=== PATIENT | female | born 1955 ===

== ENCOUNTER 2020-11-24 14:20 | Outpatient (REF) | payer MEDICARE, OTHER, SELFPAY ==
--- NOTE | ~2020-11-24 | MM_ITS ---
EXAMINATION: BONE DENSITOMETRY CLINICAL INDICATION: Age-related osteoporosis without current pathological fracture. COMPARISON: Previous BD dated 12/09/2016 and baseline BD dated 07/10/2009. TECHNIQUE: Using a [employer] DXA System (software version: 13.1) manufactured by [employer], dual-energy x-ray absorptiometry was performed of the lumbar spine and left hip. The images are of good technical quality. Summary results are attached. FINDINGS: AP SPINE L1-L3 (excluding L4): The data of L1-L4 has been changed to exclude the L4 vertebral body, because degenerative changes at this level may cause overestimation of lumbar spine density. Current: BMD 0.854 g/cm2, Z-score -0.6, T-score -2.6, osteoporosis, 0.1% decrease from previous, 14.7% decrease from baseline (<5% change is not significant). Prior: BMD 0.855 g/cm2. Baseline: BMD 1.001 g/cm2. LEFT FEMUR, NECK: Current: BMD 0.835 g/cm2, Z-score 0.3, T-score -1.5, osteopenia. Prior: BMD 0.843 g/cm2. Baseline: BMD 0.922 g/cm2. LEFT FEMUR, TOTAL: Current: BMD 0.879 g/cm2, Z-score 0.5, T-score -1.0, normal, 6.3% decrease from previous, 14.6% decrease from baseline (<5% change is not significant). Prior: BMD 0.938 g/cm2. Baseline: BMD 1.029 g/cm2. IDENTIFIED RISK FACTORS: Osteoporosis, menopause. HISTORY OF FRACTURE: None listed. MEDICATIONS: Calcium or multivitamin. MM/XR DEXA axial skeleton IMPRESSION: 1. DIAGNOSIS: Osteoporosis based on the lowest T-score value of -2.6 in the lumbar spine applying World Health Organization criteria. 2. 10-YEAR FRACTURE RISK PREDICTION, FRAX: Major osteoporotic fracture (clinical spine, forearm, hip or shoulder) 4.5%. Hip fracture 0.5%. 3. Treatment Recommendations: NOF guidelines recommend consideration for treatment in postmenopausal women and men age 50 and older presenting with the following: -A hip or vertebral (clinical or morphometric) fracture. -T-score less than or equal to -2.5 at the femoral neck or spine after appropriate evaluation to exclude secondary causes. -Low bone mass at the hip or spine and a 10-year fracture probability by FRAX of greater than or equal to 3% for hip fracture or greater than or equal to 20% for major osteoporotic fracture based on the [place] adapted WHO algorithm. 4. Other Recommendations: All treatment decisions require clinical judgment and consideration of individual patient factors, including patient preferences, comorbidities, previous drug use, risk factors not captured in the FRAX model (e.g. frailty, falls, vitamin D deficiency, increased bone turnover, interval significant decline in bone density) and possible under or overestimation of fracture risk by FRAX. Additional medical evaluation for secondary cause of low bone mineral density may be appropriate. FUTURE SCAN RECOMMENDATION: People with diagnosed cases of osteoporosis or at high risk for fracture should have regular bone mineral density tests. For patients eligible for Medicare, routine testing is allowed once every 2 years. The testing frequency can be increased to one year for patients who have rapidly progressing disease, those who are receiving or discontinuing medical therapy to restore bone mass, or have additional risk factors.
== END 2020-11-24 14:21 | disposition home or self-care (01) ==
LOC: HO.MAMMO 14:20
PROVIDERS: Visit Provider Internal Medicine
DX: M81.0 Age-related osteoporosis without current pathological fracture (principal); Z78.0 Asymptomatic menopausal state
CPT/HCPCS: 77080

== ENCOUNTER → 2021-02-11 11:50 | Outpatient (BNVA) | payer MEDICARE, OTHER, SELFPAY | PROVIDERS: PCP Internal Medicine; Visit Provider Internal Medicine | CPT/HCPCS: Q3014 ==

== ENCOUNTER 2021-02-12 10:07 | Outpatient (REF) | payer MEDICARE, OTHER, SELFPAY ==
[2021-02-12 11:33] LABS: Alanine Aminotransferase 17 U/L (0-31); Alkaline Phosphatase 109 U/L (39-117); Anion Gap 10 (12-20); Aspartate Amino Transferase 22 U/L (5-31); Bilirubin Total 0.5 mg/dL (0.0-1.0); Blood Urea Nitrogen 13 mg/dL (9-16); Calcium 9.2 mg/dL (8.4-10.2); Carbon Dioxide 27 mmol/L (22-29); Chloride 107 mmol/L (96-108); Estimated Glomerular Filt Rate > 60; Glucose Random 98 mg/dL (60-115); Phosphorus 3.9 mg/dL (2.7-4.5); Potassium 4.2 mmol/L (3.3-5.1); Sodium 140 mmol/L (135-145); Total Protein 6.7 g/dL (6.5-8.0)
[2021-02-12 11:59] LABS: Free T4 (Free Thyroxine) 0.79 ng/dL (0.71-1.85); Thyroid Stimulating Hormone 0.86 uIU/mL (0.32-4.0); Vitamin D 25-OH Total 34.6 ng/mL (>30)
[2021-02-15 22:06] LABS: Prot Elec - Albumin 3.9 g/dL (3.8-4.8); Prot Elec - Alpha1 0.2 g/dL (0.2-0.3); Prot Elec - Alpha2 0.6 g/dL (0.5-0.9); Prot Elec - Beta 1 0.4 g/dL (0.4-0.6); Prot Elec - Beta 2 0.3 g/dL (0.2-0.5); Prot Elec - Gamma 1.1 g/dL (0.8-1.7); Prot Elec - Total Protein 6.6 g/dL (6.1-8.1)
[2021-02-16 10:27] LABS: PTHI 50 pg/mL (14-64)
== END 2021-02-12 10:08 | disposition home or self-care (01) ==
LOC: HO.LAB 10:07
PROVIDERS: PCP Internal Medicine; Visit Provider Internal Medicine
DX: M81.0 Age-related osteoporosis without current pathological fracture (principal); E55.9 Vitamin D deficiency, unspecified
CPT/HCPCS: 36415; 80053; 82306; 82330; 82523; 83970; 84100; 84155; 84165; 84439; 84443

== ENCOUNTER 2021-02-15 10:11 | Outpatient (REF) | payer MEDICARE, OTHER, SELFPAY ==
[2021-02-15 11:01] LABS: Creatinine, mg/dL 55.75
[2021-02-15 12:57] LABS: Creatinine, 24Hr Urine 0.7 G/Day (1.0-2.0); Total Volume 24 Hour Urine 1325 mL
[2021-02-16 18:36] LABS: Calcium, 24 Hr Urine 272 mg/24 h; Calcium/Creatinine Ratio 366 mg/g creat (30-275); Creatinine 24Hr Urine 0.74 g/24 h (0.50-2.15)
== END 2021-02-15 10:12 | disposition home or self-care (01) ==
LOC: HO.LNP 10:11
PROVIDERS: Visit Provider Internal Medicine
DX: M81.0 Age-related osteoporosis without current pathological fracture (principal)
CPT/HCPCS: 82340; 82570

== ENCOUNTER 2021-02-17 09:21 | Outpatient (REF) | payer MEDICARE, OTHER, SELFPAY ==
--- NOTE | ~2021-02-17 | US_ITS ---
EXAMINATION: US THYROID CLINICAL INFORMATION: Vitamin D deficiency. COMPARISON: Ultrasound thyroid soft tissues neck 07/22/2011. TECHNIQUE: Linear transducer gonzalez-scale and color Doppler examination with attention to the region of the thyroid. FINDINGS: SIZE: Measurements of the thyroid lobes and nodules are given in sagittal, anteroposterior and transverse dimensions respectively. Right Thyroid Lobe: 5.2 x 1.6 x 1.2 cm, volume 5.2 mL. Previously 1.9 x 1.3 x 1.0 cm, volume 3.3 mL. Parenchyma: The gland echotexture is homogeneous. Thyroid vascularity is normal. Left Thyroid Lobe: 4.7 x 1.5 x 1.3 cm, volume 4.8 mL. Previously 3.8 x 1.2 x 1.2 cm, volume 2.9 mL. Parenchyma: The gland echotexture is homogeneous. Thyroid vascularity is normal. Isthmus: 0.3 cm in maximum AP dimension. Previously 0.3 cm. Estimated total number of nodules greater than or equal to 1 cm: 0. [employer] nodules are described as follows: 1. Location: Right mid. Size: 0.5 x 0.3 x 0.3 cm, volume 0.02 mL. Nodule characteristics: Composition: Solid (2). Echogenicity: Isoechoic (1). Shape: Not taller than wide (0). Margins: Ill-defined (0). Echogenic Foci: Punctate echogenic foci (3). ACR TI-RADS total points: 6 ACR TI-RADS category: 4 Significant change in size (>/= 20% in 2 dimensions and minimal increase of 2 mm or 50% or greater increase in volume): No Change in features: No Change in ACR TI-RADS risk category: Not applicable 2. Location: Left upper. Size: 0.5 x 0.3 x 0.3 cm, volume 0.02 mL. Nodule characteristics: Composition: Solid (2). Echogenicity: Isoechoic (1). Shape: Not taller than wide (0). Margins: Ill-defined (0). Echogenic Foci: None (0). ACR TI-RADS total points: 3 ACR TI-RADS category: 3 Significant change in size (>/= 20% in 2 dimensions and minimal increase of 2 mm or 50% or greater increase in volume): None Change in features: None Change in ACR TI-RADS risk category: Not applicable 3. Location: Left upper. Size: 0.4 x 0.5 x 0.5 cm, volume 0.05 mL. Nodule characteristics: Composition: Solid (2). Echogenicity: Hypoechoic (2). Shape: Not taller than wide (0). Margins: Ill-defined (0). Echogenic Foci: Punctate echogenic foci (3). ACR TI-RADS total points: 7 ACR TI-RADS category: 5 Significant change in size (>/= 20% in 2 dimensions and minimal increase of 2 mm or 50% or greater increase in volume): None Change in features: None Change in ACR TI-RADS risk category: Not applicable 4. Location: Left mid. Size: 0.5 x 0.4 x 0.4 cm, volume 0.04 mL. Nodule characteristics: Composition: Solid (2). Echogenicity: Isoechoic (1). Shape: Not taller than wide (0). Margins: Ill-defined (0). Echogenic Foci: None (0). ACR TI-RADS total points: 3 ACR TI-RADS category: 3 Significant change in size (>/= 20% in 2 dimensions and minimal increase of 2 mm or 50% or greater increase in volume): None Change in features: None Change in ACR TI-RADS risk category: Not applicable NODES: No lymphadenopathy is seen in the tissue surrounding the thyroid gland. US/US thyroid IMPRESSION: Small subcentimeter nodules in both lobes. The left upper pole nodule is suspicious. Recommend routine annual follow-up. ACR TI-RADS RECOMMENDATION REFERENCE: Ultrasound-guided fine-needle aspiration, followup ultrasound, no further follow up. * TR1 (0 point) and TR 2 (2 points): No FNA or follow up * TR3 (3 points): FNA if more than or equal to 2.5 cm in maximum dimension, followup ultrasound in 1, 3 and 5 years if 1.5 to 2.4 cm in maximum dimension. * TR4 (4-6 points): FNA if more than or equal to 1.5 cm in maximum dimension, followup ultrasound in 1, 2, 3 and 5 years if 1 to 1.4 cm in maximum dimension. * TR5 (more than or equal to 7 points): FNA if more than or equal to 1 cm in maximum dimension, followup ultrasound every year for 5 years if 0.5 to 0.9 cm in maximum dimension. * TR3, TR4 or TR5 nodules that are below the size threshold for follow up receive no follow up.
== END 2021-02-17 09:22 | disposition home or self-care (01) ==
LOC: HO.US 09:21
PROVIDERS: PCP Internal Medicine; Visit Provider Internal Medicine
DX: E04.2 Nontoxic multinodular goiter (principal); E55.9 Vitamin D deficiency, unspecified
CPT/HCPCS: 76536

== ENCOUNTER 2021-02-23 09:36 | Outpatient (REF) | payer MEDICARE, OTHER, SELFPAY ==
[2021-03-03 06:21] LABS: N-Telopeptide 51 (see note); NTXCreaRU 92 mg/dL (20-275)
== END 2021-02-23 09:37 | disposition home or self-care (01) ==
LOC: HO.LNP 09:36
PROVIDERS: Visit Provider Internal Medicine
DX: M81.0 Age-related osteoporosis without current pathological fracture (principal)
CPT/HCPCS: 82523

== ENCOUNTER → 2021-04-14 15:02 | Outpatient (BNVA) | payer MEDICARE, OTHER, SELFPAY | PROVIDERS: PCP Internal Medicine; Visit Provider Internal Medicine | DX: Z13.89 Encounter for screening for other disorder (principal) | CPT/HCPCS: Q3014 ==

== ENCOUNTER 2021-05-08 09:59 | Outpatient (REF) | payer MEDICARE, OTHER, SELFPAY ==
[2021-05-08 10:22] LABS: Total Volume 24 Hour Urine 2050 mL
[2021-05-08 10:52] LABS: Creatinine, mg/dL 49.55
[2021-05-09 18:27] LABS: Calcium, 24 Hr Urine 232 mg/24 h; Calcium/Creatinine Ratio 222 mg/g creat (30-275); Creatinine 24Hr Urine 1.05 g/24 h (0.50-2.15)
== END 2021-05-08 10:00 | disposition home or self-care (01) ==
LOC: HO.LNP 09:59
PROVIDERS: Visit Provider Internal Medicine
DX: M81.0 Age-related osteoporosis without current pathological fracture (principal)
CPT/HCPCS: 82340; 82570

== ENCOUNTER 2021-05-12 11:07 | Outpatient (REF) | payer MEDICARE, OTHER, SELFPAY ==
[2021-05-12 13:41] LABS: MANUAL DIFF FLAG NO
[2021-05-12 13:46] LABS: Basophils Percent Auto 0.2 % (0-2); Eosinophils Absolute Auto 0.1 X10*3/uL (0.0-0.4); Eosinophils Percent Auto 0.9 % (0-4); Hematocrit 38.4 % (37-47); Hemoglobin 13.2 g/dl (12.0-16.0); Imm Gran Abs Auto 0.01 X10*3/uL (0.00-0.03); Imm Gran Pct Auto 0.2 % (0.0-0.4); Lymphocytes Absolute Auto 1.7 X10*3/uL (1.2-4.9); Lymphocytes Percent Auto 30.4 % (20-40); Mean Corpuscular HGB Conc 34.4 g/dl (31.0-35.0); Mean Corpuscular Hemoglobin 32.8 pg (27.0-33.0); Mean Corpuscular Volume 95.5 fL (80-98); Mean Platelet Volume 10.8 fL (9.4-12.3); Monocytes Absolute Auto 0.4 X10*3/uL (0.1-1.2); Monocytes Percent Auto 6.4 % (2-11); Neutrophils Absolute Auto 3.4 X10*3/uL (2.0-8.3); Neutrophils Percent Auto 61.9 % (45-73); Platelet Count 274 X10*3/uL (160-400); Red Blood Count 4.02 X10*6/uL (4.20-5.50); Red Cell Distribution Width 12.2 % (11.0-16.0); White Blood Count 5.4 X10*3/uL (4.8-10.8)
[2021-05-12 14:06] LABS: Glucose Urine UA NEG (NEG); Leukocyte Esterase Urine NEG (NEG); Nitrite Urine NEG (NEG); Urine Blood NEG (NEG); Urine Ketones NEG (NEG); Urine Protein NEG (NEG-TRACE)
[2021-05-12 14:07] LABS: Appearance Urine CLEAR; Color Urine YELLOW
[2021-05-12 14:24] LABS: Alanine Aminotransferase 17 U/L (0-31); Albumin Level 4.1 g/dL (3.5-5.0); Alkaline Phosphatase 96 U/L (39-117); Anion Gap 13 (12-20); Aspartate Amino Transferase 22 U/L (5-31); Bilirubin Total 0.6 mg/dL (0.0-1.0); Blood Urea Nitrogen 13 mg/dL (9-16); Calcium 9.8 mg/dL (8.4-10.2); Carbon Dioxide 24 mmol/L (22-29); Chloride 107 mmol/L (96-108); Estimated Glomerular Filt Rate > 60; Glucose Random 102 mg/dL (60-115); Potassium 4.2 mmol/L (3.3-5.1); Sodium 140 mmol/L (135-145); Total Protein 6.9 g/dL (6.5-8.0)
== END 2021-05-12 11:08 | disposition home or self-care (01) ==
LOC: HO.WFDLDS 11:07
PROVIDERS: Visit Provider Family Medicine
DX: Z00.00 Encounter for general adult medical examination without abnormal findings (principal); R10.32 Left lower quadrant pain
CPT/HCPCS: 36415; 80053; 81003; 85025

== ENCOUNTER 2021-05-15 10:05 | Outpatient (REF) | payer MEDICARE, OTHER, SELFPAY ==
--- NOTE | ~2021-05-15 | XR_ITS ---
EXAMINATION: XR ABDOMEN KUB CLINICAL INDICATION: Left lower quadrant pain. COMPARISON: CT abdomen/pelvis dated 09/23/2019. TECHNIQUE: AP views of the abdomen. FINDINGS: Nonobstructive bowel gas pattern. No intra-abdominal free air. Mild stool within the colon. No abnormal soft tissue calcification. Pelvic phleboliths. No acute osseous abnormality. XR/XR KUB IMPRESSION: Nonobstructive bowel gas pattern.
== END 2021-05-15 10:06 | disposition home or self-care (01) ==
LOC: HO.XRAY 10:05
PROVIDERS: PCP Internal Medicine; Visit Provider Family Medicine
DX: R10.32 Left lower quadrant pain (principal)
CPT/HCPCS: 74018

== ENCOUNTER → 2021-07-21 07:33 | Outpatient (BNVA) | payer MEDICARE, OTHER, SELFPAY | PROVIDERS: PCP Internal Medicine; Visit Provider Internal Medicine | DX: M81.0 Age-related osteoporosis without current pathological fracture (principal); E55.9 Vitamin D deficiency, unspecified; E04.2 Nontoxic multinodular goiter | CPT/HCPCS: Q3014 ==

== ENCOUNTER 2021-07-22 14:42 | Outpatient (REF) | payer MEDICARE, OTHER, SELFPAY ==
[2021-07-22 15:43] LABS: Alanine Aminotransferase 18 U/L (0-31); Alkaline Phosphatase 101 U/L (39-117); Anion Gap 13 (12-20); Aspartate Amino Transferase 21 U/L (5-31); Bilirubin Total 0.4 mg/dL (0.0-1.0); Blood Urea Nitrogen 12 mg/dL (9-16); Calcium 9.4 mg/dL (8.4-10.2); Carbon Dioxide 25 mmol/L (22-29); Chloride 106 mmol/L (96-108); Estimated Glomerular Filt Rate > 60; Glucose Random 106 mg/dL (60-115); Phosphorus 3.6 mg/dL (2.7-4.5); Potassium 3.8 mmol/L (3.3-5.1); Sodium 140 mmol/L (135-145); Total Protein 6.7 g/dL (6.5-8.0)
[2021-07-22 16:04] LABS: Vitamin D 25-OH Total 49.2 ng/mL (>30)
[2021-07-23 16:01] LABS: Calcium (PTHI) 9.6 mg/dL (8.6-10.4); PTHI 45 pg/mL (14-64)
== END 2021-07-22 14:43 | disposition home or self-care (01) ==
LOC: HO.LAB 14:42
PROVIDERS: PCP Internal Medicine; Visit Provider Internal Medicine
DX: M81.0 Age-related osteoporosis without current pathological fracture (principal); E55.9 Vitamin D deficiency, unspecified
CPT/HCPCS: 36415; 80053; 82306; 83970; 84100

== ENCOUNTER 2021-08-17 10:19 | Outpatient (REF) | payer MEDICARE, OTHER, SELFPAY ==
--- NOTE | ~2021-08-17 | US_ITS ---
EXAMINATION: US ABDOMEN COMPLETE CLINICAL INFORMATION: Unspecified abdominal pain. COMPARISON: CT abdomen and pelvis 09/23/2019. KUB 05/15/2021. Ultrasound abdomen 04/17/2019. TECHNIQUE: Real-time imaging of the abdominal viscera. FINDINGS: PANCREAS: Normal. ABDOMINAL AORTA: The proximal, mid, and distal segments are normal in caliber. INFERIOR VENA CAVA: Visualized portions are normal. LIVER: The liver is normal in size. The liver contour is normal. Parenchymal echogenicity is normal. There is an anechoic cyst in the right anterior lobe superiorly measuring 0.7 x 0.4 x 0.4 cm. Few scattered echogenic calcifications are seen in the right hepatic lobe with the largest calcification measuring 1.3 x 0.4 x 1.2 cm. There is no intrahepatic biliary duct dilatation seen. GALLBLADDER: Normal. The gallbladder is physiologically distended without evidence of stones, sludge, polyps, wall thickening or pericholecystic fluid. COMMON BILE DUCT: Normal in caliber measuring 0.28 cm in diameter. RIGHT KIDNEY: Normal. No hydronephrosis. No renal calculi or focal parenchymal lesions. The kidney measures 11.6 cm in maximum dimension. LEFT KIDNEY: No hydronephrosis or focal parenchymal lesions. The kidney measures 11.6 cm in maximum dimension. There are multiple punctate echogenic foci in the left kidney cortex with an echogenic stone in midpole measuring 0.3 x 0.2 x 0.3 cm no focal caliectasis seen. SPLEEN: The spleen measures 9.0 cm in maximum dimension. There are multiple punctate foci in the cortex. FREE FLUID: None. US/US abdomen complete IMPRESSION: Anechoic right hepatic lobe cyst with few scattered calcifications. Nonobstructive echogenic stone midpole left kidney. Scattered punctate echogenic foci in the cortex. Multiple scattered punctate calcifications in the spleen.
== END 2021-08-17 10:20 | disposition home or self-care (01) ==
LOC: HO.US 10:19
PROVIDERS: PCP Internal Medicine; Visit Provider Internal Medicine
DX: R10.13 Epigastric pain (principal); R10.9 Unspecified abdominal pain
CPT/HCPCS: 76700

== ENCOUNTER 2021-10-29 14:23 | Outpatient (REF) | payer MEDICARE, OTHER, SELFPAY ==
--- NOTE | ~2021-10-29 | XR_ITS ---
EXAMINATION: XR ELBOW, RIGHT CLINICAL INFORMATION: Pain right elbow. COMPARISON: None TECHNIQUE: AP, lateral, and oblique views of the right elbow. FINDINGS: The bones and soft tissues are normal. No fracture or joint effusion. Alignment is anatomic. Joint spaces are maintained. XR/XR elbow RT 2V IMPRESSION: Unremarkable right elbow exam.
== END 2021-10-29 14:24 | disposition home or self-care (01) ==
LOC: HO.XRAY 14:23
PROVIDERS: PCP Internal Medicine; Visit Provider Nurse Practitioner Family
DX: M25.521 Pain in right elbow (principal)
CPT/HCPCS: 73070

== ENCOUNTER 2021-11-24 09:13 | Outpatient (REF) | payer MEDICARE, OTHER, SELFPAY ==
[2021-11-24 09:41] LABS: MANUAL DIFF FLAG NO
[2021-11-24 09:54] LABS: Basophils Percent Auto 0.9 % (0-2); Eosinophils Absolute Auto 0.1 X10*3/uL (0.0-0.4); Eosinophils Percent Auto 3.5 % (0-4); Hematocrit 40.2 % (37.0-47.0); Hemoglobin 13.4 g/dl (12.0-16.0); Imm Gran Abs Auto 0.01 X10*3/uL (0.00-0.03); Imm Gran Pct Auto 0.3 % (0.0-0.4); Lymphocytes Absolute Auto 1.4 X10*3/uL (1.2-4.9); Mean Corpuscular HGB Conc 33.3 g/dl (31.0-35.0); Mean Corpuscular Hemoglobin 31.8 pg (27.0-33.0); Mean Corpuscular Volume 95.5 fL (80.0-98.0); Mean Platelet Volume 9.8 fL (9.4-12.3); Monocytes Absolute Auto 0.2 X10*3/uL (0.1-1.2); Monocytes Percent Auto 7.2 % (2-11); Neutrophils Absolute Auto 1.4 x10*3/uL (2.0-8.3); Neutrophils Percent Auto 44.1 % (45-73); Platelet Count 288 X10*3/uL (160-400); Red Blood Count 4.21 X10*6/uL (4.20-5.50); Red Cell Distribution Width 12.1 % (11.0-16.0); White Blood Count 3.2 X10*3/uL (4.8-10.8)
[2021-11-24 10:34] LABS: Appearance Urine CLEAR; Color Urine YELLOW; Glucose Urine UA NEG (NEG); Leukocyte Esterase Urine NEG (NEG); Nitrite Urine NEG (NEG); UACC Culture Trigger NO; Urine Blood NEG (NEG); Urine Ketones NEG (NEG); Urine Protein 1+ MG/DL (NEG-TRACE)
[2021-11-24 10:47] LABS: Alanine Aminotransferase 15 U/L (0-31); Alkaline Phosphatase 100 U/L (39-117); Anion Gap 10 (12-20); Aspartate Amino Transferase 20 U/L (5-31); Bilirubin Total 0.6 mg/dL (0.0-1.0); Blood Urea Nitrogen 13 mg/dL (9-16); Calcium 9.2 mg/dL (8.4-10.2); Carbon Dioxide 28 mmol/L (22-29); Chloride 108 mmol/L (96-108); Cholesterol 181 mg/dL; Estimated Glomerular Filt Rate > 60; Glucose Fasting 94 mg/dL (60-99); HDL Cholesterol 69 mg/dL; LDL Cholesterol Calculated 99 mg/dl; Potassium 4.4 mmol/L (3.3-5.1); Sodium 142 mmol/L (135-145); Total Protein 6.7 g/dL (6.5-8.0); Triglycerides 65 mg/dL
[2021-11-24 10:48] LABS: RBC Urine 0-2 /HPF (0); Squamous Epithelial Cell Urine 1+ /LPF; WBC Urine 0-2 /HPF (0-4)
[2021-11-24 11:10] LABS: TSH reflex Free T4 1.46 uIU/mL (0.32-4.0); Vitamin D 25-OH Total 46.3 ng/mL (>30)
== END 2021-11-24 09:14 | disposition home or self-care (01) ==
LOC: HO.LAB 09:13
PROVIDERS: PCP Internal Medicine; Visit Provider Internal Medicine
DX: Z00.00 Encounter for general adult medical examination without abnormal findings (principal); M81.0 Age-related osteoporosis without current pathological fracture; E55.9 Vitamin D deficiency, unspecified; E04.2 Nontoxic multinodular goiter
CPT/HCPCS: 36415; 80053; 80061; 81001; 82306; 84443; 85025

== ENCOUNTER → 2022-03-15 09:44 | Outpatient (BNVA) | payer MEDICARE, OTHER, SELFPAY | PROVIDERS: PCP Internal Medicine; Visit Provider Internal Medicine Endocrinology, Diabetes & Metabolism | DX: M81.0 Age-related osteoporosis without current pathological fracture (principal); E04.2 Nontoxic multinodular goiter; Z79.899 Other long term (current) drug therapy | CPT/HCPCS: 99212 ==

== ENCOUNTER 2022-10-13 14:54 | Outpatient (REF) | payer MEDICARE, OTHER, SELFPAY ==
--- NOTE | ~2022-10-13 | XR_ITS ---
EXAMINATION: XR KNEE, LEFT CLINICAL INFORMATION: Left knee pain COMPARISON: 02/26/2019 TECHNIQUE: AP and lateral views of the left knee. FINDINGS: Mild medial compartment osteoarthritis. Small joint effusion. Anteromedial loose body that has slightly increased in size. No acute osseous abnormality. XR/XR knee LT 2V IMPRESSION: Mild medial compartment osteoarthritis with a small joint effusion. Anteromedial loose body has slightly increased in size.
== END 2022-10-13 14:55 | disposition home or self-care (01) ==
LOC: HO.XRAY 14:54
PROVIDERS: PCP Internal Medicine; Visit Provider Nurse Practitioner Family
DX: M25.562 Pain in left knee (principal)
CPT/HCPCS: 73560

== ENCOUNTER 2022-11-08 08:33 | Outpatient (REF) | payer MEDICARE, OTHER, SELFPAY ==
--- NOTE | ~2022-11-08 | XR_ITS ---
EXAMINATION: XR KNEE, AP STANDING, BILATERAL XR KNEE, 2 VIEWS, LEFT CLINICAL INFORMATION: M17.12 - Unilateral primary osteoarthritis, left knee . Knee pain. COMPARISON: 10/13/2022 TECHNIQUE: Standing AP view of both knees and sunrise view of the left knee. FINDINGS: LEFT KNEE: Mild medial compartment osteoarthritis is characterized by small marginal osteophytes primarily. Lateral and patellofemoral compartments appear relatively well preserved. No fracture or malalignment. Bone mineralization is normal. A bone island is present in the region of the medial femoral condyle. RIGHT KNEE: Minimal medial compartment osteoarthritis with small marginal osteophytes. Joint spaces appear relatively well preserved. No acute soft tissue abnormalities. XR/XR knee LT 1V IMPRESSION: Mild medial compartment osteoarthritis bilaterally.
--- NOTE | ~2022-11-08 | XR_ITS ---
EXAMINATION: XR KNEE, AP STANDING, BILATERAL XR KNEE, 2 VIEWS, LEFT CLINICAL INFORMATION: M17.12 - Unilateral primary osteoarthritis, left knee . Knee pain. COMPARISON: 10/13/2022 TECHNIQUE: Standing AP view of both knees and sunrise view of the left knee. FINDINGS: LEFT KNEE: Mild medial compartment osteoarthritis is characterized by small marginal osteophytes primarily. Lateral and patellofemoral compartments appear relatively well preserved. No fracture or malalignment. Bone mineralization is normal. A bone island is present in the region of the medial femoral condyle. RIGHT KNEE: Minimal medial compartment osteoarthritis with small marginal osteophytes. Joint spaces appear relatively well preserved. No acute soft tissue abnormalities. XR/XR knee standing BI IMPRESSION: Mild medial compartment osteoarthritis bilaterally.
== END 2022-11-08 08:34 | disposition home or self-care (01) ==
LOC: HO.HOSX 08:33
PROVIDERS: Visit Provider Physician Assistant
DX: M17.12 Unilateral primary osteoarthritis, left knee (principal)
CPT/HCPCS: 73560; 73565; 99202

== ENCOUNTER 2022-11-23 09:06 | Outpatient (REF) | payer MEDICARE, OTHER, SELFPAY ==
[2022-11-23 09:20] LABS: MANUAL DIFF FLAG NO
[2022-11-23 09:42] LABS: Basophils Percent Auto 0.8 % (0-2); Eosinophils Absolute Auto 0.1 X10*3/uL (0.0-0.4); Eosinophils Percent Auto 2.2 % (0-4); Hematocrit 40.5 % (37.0-47.0); Hemoglobin 13.9 g/dl (12.0-16.0); Imm Gran Abs Auto 0.01 X10*3/uL (0.00-0.03); Imm Gran Pct Auto 0.3 % (0.0-0.4); Lymphocytes Absolute Auto 1.9 X10*3/uL (1.2-4.9); Lymphocytes Percent Auto 52.2 % (20-40); Mean Corpuscular HGB Conc 34.3 g/dl (31.0-35.0); Mean Corpuscular Volume 96.2 fL (80.0-98.0); Mean Platelet Volume 10.3 fL (9.4-12.3); Monocytes Absolute Auto 0.3 X10*3/uL (0.1-1.2); Monocytes Percent Auto 7.6 % (2-11); Neutrophils Absolute Auto 1.4 x10*3/uL (2.0-8.3); Neutrophils Percent Auto 36.9 % (45-73); Platelet Count 250 X10*3/uL (160-400); Red Blood Count 4.21 X10*6/uL (4.20-5.50); Red Cell Distribution Width 12.3 % (11.0-16.0); White Blood Count 3.7 X10*3/uL (4.8-10.8)
[2022-11-23 10:14] LABS: Alanine Aminotransferase 25 U/L (0-31); Alkaline Phosphatase 104 U/L (39-117); Anion Gap 9 (12-20); Aspartate Amino Transferase 41 U/L (5-31); Bilirubin Total 0.8 mg/dL (0.0-1.0); Blood Urea Nitrogen 10 mg/dL (9-16); Calcium 9.2 mg/dL (8.4-10.2); Carbon Dioxide 32 mmol/L (22-29); Chloride 108 mmol/L (96-108); Cholesterol 196 mg/dL; Estimated Glomerular Filt Rate > 60; Glucose Fasting 95 mg/dL (60-99); HDL Cholesterol 72 mg/dL; LDL Cholesterol Calculated 104 mg/dl; Potassium 4.2 mmol/L (3.3-5.1); Sodium 145 mmol/L (135-145); Total Protein 6.8 g/dL (6.5-8.0); Triglycerides 103 mg/dL
[2022-11-23 10:28] LABS: Vitamin D 25-OH Total 38.4 ng/mL (>30)
[2022-11-23 10:46] LABS: Appearance Urine Clear; Color Urine Yellow; Glucose Urine UA Negative (Negative); Leukocyte Esterase Urine Negative (Negative); Nitrite Urine Negative (Negative); PH 8.5 (5.0-9.0); Specific Gravity - Urine 1.015 (1.005-1.025); Urine Blood Negative (Negative); Urine Ketones Negative (Negative); Urine Protein Negative (Neg-Trace)
== END 2022-11-23 09:07 | disposition home or self-care (01) ==
LOC: HO.LAB 09:06
PROVIDERS: PCP Internal Medicine; Visit Provider Internal Medicine
DX: Z00.00 Encounter for general adult medical examination without abnormal findings (principal); E55.9 Vitamin D deficiency, unspecified; E78.00 Pure hypercholesterolemia, unspecified
CPT/HCPCS: 36415; 80053; 80061; 81003; 82306; 84443; 85025

== ENCOUNTER 2022-12-09 10:19 | Outpatient (REF) | payer MEDICARE, OTHER, SELFPAY ==
--- NOTE | ~2022-12-09 | MM_ITS ---
EXAMINATION: BONE DENSITOMETRY CLINICAL INDICATION: Menopause. COMPARISON: Previous BD dated 11/24/2020 and baseline BD dated 07/10/2009. TECHNIQUE: Using a [employer] DXA System (software version: 13.1) manufactured by [employer], dual-energy x-ray absorptiometry was performed of the lumbar spine and left hip. The images are of good technical quality. Summary results are attached. FINDINGS: AP SPINE L1-L3 (excluding L4): The data of L1-L4 has been changed to exclude the L4 vertebral body, because degenerative sclerosis at this level may cause overestimation of lumbar spine density. Current: BMD 0.839 g/cm2, Z-score -0.7, T-score -2.8, osteoporosis, 1.8% decrease from previous, 16.2% decrease from baseline (<5% change is not significant). Prior: BMD 0.854 g/cm2. Baseline: BMD 1.001 g/cm2. LEFT FEMUR, NECK: Current: BMD 0.827 g/cm2, Z-score 0.3, T-score -1.5, osteopenia. Prior: BMD 0.835 g/cm2. Baseline: BMD 0.922 g/cm2. LEFT FEMUR, TOTAL: Current: BMD 0.871 g/cm2, Z-score 0.5, T-score -1.1, osteopenia, 0.9% decrease from previous, 15.4% decrease from baseline (<5% change is not significant). Prior: BMD 0.879 g/cm2. Baseline: BMD 1.029 g/cm2. IDENTIFIED RISK FACTORS: Menopause, osteoporosis. HISTORY OF FRACTURE: None listed. MEDICATIONS: Vitamin D. MM/XR DEXA axial skeleton IMPRESSION: 1. DIAGNOSIS: Osteoporosis based on the lowest T-score value of -2.8 in the lumbar spine applying World Health Organization criteria. 2. 10-YEAR FRACTURE RISK PREDICTION, FRAX: According to the guidelines, FRAX calculation should only be performed on patients in the osteopenia bone density category. Therefore, FRAX was not performed on this patient. 3. Treatment Recommendations: NOF guidelines recommend consideration for treatment in postmenopausal women and men age 50 and older presenting with the following: -A hip or vertebral (clinical or morphometric) fracture. -T-score less than or equal to -2.5 at the femoral neck or spine after appropriate evaluation to exclude secondary causes. -Low bone mass at the hip or spine and a 10-year fracture probability by FRAX of greater than or equal to 3% for hip fracture or greater than or equal to 20% for major osteoporotic fracture based on the [place] adapted WHO algorithm. 4. Other Recommendations: All treatment decisions require clinical judgment and consideration of individual patient factors, including patient preferences, comorbidities, previous drug use, risk factors not captured in the FRAX model (e.g. frailty, falls, vitamin D deficiency, increased bone turnover, interval significant decline in bone density) and possible under or overestimation of fracture risk by FRAX. Additional medical evaluation for secondary cause of low bone mineral density may be appropriate. FUTURE SCAN RECOMMENDATION: People with diagnosed cases of osteoporosis or at high risk for fracture should have regular bone mineral density tests. For patients eligible for Medicare, routine testing is allowed once every 2 years. The testing frequency can be increased to one year for patients who have rapidly progressing disease, those who are receiving or discontinuing medical therapy to restore bone mass, or have additional risk factors.
== END 2022-12-09 10:20 | disposition home or self-care (01) ==
LOC: HO.MAMMO 10:19
PROVIDERS: Visit Provider Internal Medicine
DX: Z13.820 Encounter for screening for osteoporosis (principal); Z78.0 Asymptomatic menopausal state; M81.0 Age-related osteoporosis without current pathological fracture
CPT/HCPCS: 77080

== ENCOUNTER 2023-06-02 10:25 | Outpatient (AMB) | payer MEDICARE, OTHER, SELFPAY ==
[2023-06-02 10:27] VITALS: BP 122/80; PULSE 73; O2SAT 97; BMI 19.8
--- NOTE | 2023-06-02 10:27 | A.OFFPC_ITS ---
Vital Signs 06/02/23 10:27 Height 5 ft 2 in Weight 108 lb 8 oz BMI 19.8 BP 122/80 Blood Pressure Location Lt brachial Position Sitting Pulse 73 Pulse Source Pulse Oximeter Pulse Oximetry (%) 97 Oxygen Delivery Method Room Air Intake Visit Reasons: 6 month follow up Imaging Technician Required: No Accompanied by: Self / Same As Patient Allergies lisinopril Allergy (Unknown, Verified 06/02/23 12:01) Cough Medication List - Last Reconciled 06/02/23 by Spencer Pak MD alprazolam 0.5 mg PO DAILY PRN 30 days amlodipine 5 mg PO DAILY ibuprofen 600 mg PO Q8H PRN zolpidem 5 mg PO BEDTIME PRN 30 days Tobacco use date assessed: 06/02/23 Fall risk assessment: No Falls in past year Last assessed Fall Risk: 06/02/23 Dental Screening Dental Screen Date: 06/02/23 Did you have a dental visit in the last 12 months?: Yes Did you have a dental problem in the last 6 months where you did not have access to dental care?: No Was dental information given to patient?: Patient has dentist HPI 6 month follow up HPI Details Patient comes in today for her follow up visit States that she feels okay She denies any headaches or dizziness Denies any chest pains, no SOB No nausea/vomiting, no abdominal pain No change in bowel habits noted Needs her Zolpidem and Alprazolam Rx refilled - states that she normally just takes these on an as needed basis but is wondering why she had a hard time refilling her Zolpidem Rx last time - seems to recall being told that because of the nature of the medication, her insurance will not allow her to refill it on a regular basis? Had her repeat BMD done a few months ago and was reportedly advised that her BMD has not changed much from her previous scan [facility] Medical History (Updated 06/02/23 @ 12:15 by Spencer Pak MD) Osteoarthritis of both knees Osteoarthritis of left knee Left knee pain Anxiety Insomnia Benign essential hypertension Multinodular thyroid HTN (hypertension) Vitamin D deficiency Osteoporosis Surgical History Hx of colonoscopy (~02/15/18) History of bunionectomy History of bilateral breast implants Family History Father Stroke Mother Hypertension Aneurysm Sister Breast cancer Brother No problems noted. Social History Housing: House Alcohol intake: current Alcohol intake frequency: holidays/special occasions only Alcohol type: wine Patient Tobacco Use Status: Former Tobacco user Years Smoked: 10 e-Cigarette/Vaping Use: Never Used Second Hand Smoke Exposure: Yes service: No Current occupational status: retired Cognitive needs: No Hearing needs: No Vision needs: Yes (glasses) Questionnaire PHQ-9 Over the last 2 weeks, how often have you been bothered by any of the following problems? 1. Little interest or pleasure in doing things: not at all 2. Feeling down, depressed, or hopeless: not at all 3. Trouble falling or staying asleep, or sleeping too much: not at all 4. Feeling tired or having little energy: not at all 5. Poor appetite or overeating: not at all 6. Feeling bad about yourself - or that you are a failure or have let yourself or your family down: not at all 7. Trouble concentrating on things, such as reading the newspaper or watching television: not at all 8. Moving or speaking so slowly that other people could have noticed. Or the opposite - being so fidgety or restless that you have been moving around a lot more than usual: not at all 9. Thoughts that you would be better off or of hurting yourself in some way: not at all Total score: 0 Depression Screening Interpretation: Negative 30469 - PHQ-9 Billing: Yes Source: Developed by Drs. Matias Couch, Janey Nails, Jose Alfredo Hawk and colleagues, with an educational wilfred from [employer]. Thrive Questionnaire Date Thrive assessed: 06/02/23 I am a: Patient What is your living situation today?: I have a steady place to live Within the past 12 months, did the food you bought not last and you didn't have the money to get more?: Never true Within the past 12 months, did you worry whether your food would run out before you got money to buy more?: Never true Do you have trouble paying for medicines?: No Do you have trouble getting transportation to medical appointments?: No Do you have trouble paying your heating and electricity bill?: No Do you have trouble taking care of your child, family member or friend?: No Do you have trouble with day-to-day activities such as bathing, preparing meals, shopping, managing finances, etc.?: No Are you currently unemployed and looking for a job?: No Are you interested in more education?: No Please select the resources that you would like help with: None Currently or been in a relationship where the following occur: no concerns reported AUDIT C Alcohol Use Questionnaire (AUDIT-C) 1. How often do you have a drink containing alcohol?: Never 3. How often do you have six or more drinks on one occasion?: Never Total Score: 0 Score Reviewed/Action Taken: Yes CASEY-7 AMB Questionnaire CASEY-7 Date CASEY - 7 assessed: 06/02/23 Feeling nervous, anxious, or on edge: 0 = Not at all Not being able to stop or control worryin = Not at all Worrying too much about different things: 0 = Not at all Trouble relaxin = Not at all Being so restless that it is hard to sit still: 0 = Not at all Becoming easily annoyed or irritable: 0 = Not at all Feeling afraid as if something awful might happen: 0 = Not at all Total CASEY-7 score (0-4 normal; 5-9 mild; 10-14 moderate; 15-21 severe): 0 Source: Developed by Drs. Matias Couch, Janey Nails, Jose Alfredo Hawk and colleagues, with an educational wilfred from [employer]. Review of Systems Const Denies chills, Denies difficulty sleeping (Rx helps when needed), Denies fatigue, Denies fever(s) and Denies headache(s) ENT Denies dysphagia, Denies dizziness, Denies otalgia, Denies headache(s), Denies neck pain, Denies odynophagia and Denies sore throat Card Denies chest pain, Denies palpitations and Denies dyspnea Resp Denies cough and Denies dyspnea GI Denies abdominal pain, Denies constipation, Denies dysphagia, Denies heartburn, Denies diarrhea, Denies nausea, Denies odynophagia and Denies vomiting Denies difficulty voiding, Denies nocturia and Denies dysuria Musc Denies neck pain Neuro Denies dizziness and Denies headache(s) Endo Denies fatigue and Denies palpitations Physical exam (Primary Care) Vital Signs: Last Vital Signs Pulse 73 06/02/23 10:27 BP 122/80 06/02/23 10:27 Pulse Ox 97 06/02/23 10:27 Oxygen Delivery Method Room Air 06/02/23 10:27 BMI result Body Mass Index 19.8 Tobacco/Smoking Status: Tobacco use Status Tobacco use date assessed 06/02/23 06/02/23 10:32 Patient Tobacco Use Status Former Tobacco user 06/02/23 10:32 e-Cigarette/Vaping Use Never Used 06/02/23 10:32 PHQ-9: PHQ-9 Score PHQ-9: Total score 0 06/02/23 10:32 Depression Screening Interpretation: Negative Thrive Assessment: Date of Thrive Assessment Date Thrive assessed 06/02/23 06/02/23 10:32 Currently or been in a relationship where the following occur: no concerns reported Const General: no acute distress and alert Neck Neck: Yes no lymphadenopathy and Yes supple Resp Auscultation: clear to auscultation bilaterally, no rales and no wheezes Cardio Rate: regular rate Rhythm: regular rhythm Heart sounds: no murmurs GI Palpation (GI): Soft to palpation, nontender and No hepatosplenomegaly present Extrem General: Yes no clubbing, cyanosis or edema Assessment and Plan Assessment & Plan (1) Benign essential hypertension: Code(s): I10 - Essential (primary) hypertension Plan: Her BP appears well-controlled today Reinforced low sodium diet - goal is systolic BP of at least 120 to 130 mm or less Continue Amlodipine 5 mg QD Will recheck her labs in 6 months for follow up (2) Osteoporosis: Code(s): M81.0 - Age-related osteoporosis without current pathological fracture Qualifiers: Osteoporosis type: unspecified Presence of current pathological fracture: without current pathological fracture Qualified Code(s): M81.0 - Age- related osteoporosis without current pathological fracture Plan: Fall precautions reinforced Repeat BMD done in November 2022 revealed no significant change from previous; lowest T score is still at -2.8 in the lumbar spine Continue daily calcium and Vitamin D supplements Follow up with endocrinology as scheduled (3) Vitamin D deficiency: Code(s): E55.9 - Vitamin D deficiency, unspecified Plan: Continue daily OTC Vitamin D supplement (4) Multinodular thyroid: Code(s): E04.2 - Nontoxic multinodular goiter Plan: Follow up with endocrinology as scheduled Recommend repeat thyroid US done every 2 to 3 years for continuing surveillance (last done in 2020) (5) Leucopenia: Code(s): D72.819 - Decreased white blood cell count, unspecified Qualifiers: Leukopenia type: neutropenia Neutropenia type: unspecified Qualified Code(s): D70.9 - Neutropenia, unspecified Plan: Mild; appears to occur on and off Patient is currently asymptomatic and has no concerning symptoms Will recheck CBC in 6 months; will include B12 level, ESR, JANE for further evaluation If leucopenia persists, may need flow cytometry and hematology referral (6) Elevated alanine aminotransferase (ALT) level: Code(s): R74.01 - Elevation of levels of liver transaminase levels Plan: Mild; new finding Patient is presently asymptomatic Will recheck LFTs in 6 months for follow up (7) Osteoarthritis of both knees: Code(s): M17.0 - Bilateral primary osteoarthritis of knee Qualifiers: Osteoarthritis type: primary Qualified Code(s): M17.0 - Bilateral primary osteoarthritis of knee Plan: X-rays of the knees done back in October 2022 revealed (+) mild medial compartment osteoarthritis bilaterally May take OTC Tylenol PRN for pain Followup with orthopedics as scheduled (8) Insomnia: Code(s): G47.00 - Insomnia, unspecified Qualifiers: Insomnia type: unspecified Qualified Code(s): G47.00 - Insomnia, unspecified Plan: Sleep hygiene reinforced Continue Zolpidem 5 mg Q HS PRN - Rx refilled Advised that if she still has problems refilling her Rx, she may need to contact her insurance company as they may have some restrictions in place for this Rx like the amount of tablets they will cover over a certain amount of time or some other restrictions (9) Anxiety: Code(s): F41.9 - Anxiety disorder, unspecified Plan: Continue Alprazolam 0.5 mg QD PRN - Rx refilled Plan To return in 6 months for her next annual physical examination Orders: Orders TSH reflex Free T4 6 Months E78.00 - Pure hypercholesterolemia, unspecified Vitamin B12 and Folate 6 Months D72.819 - Decreased white blood cell count, unspecified, E53.8 - Deficiency of other specified B group vitamins Complete Blood Count Auto Diff 6 Months I10 - Essential (primary) hypertension Comprehensive [place]. Panel Fast 6 Months E78.00 - Pure hypercholesterolemia, unspecified Lipid Panel 6 Months E78.00 - Pure hypercholesterolemia, unspecified UA CC w/rflx Micro + Cult 6 Months R30.0 - Dysuria Vitamin D 25-OH Total 6 Months E55.9 - Vitamin D deficiency, unspecified Erythrocyte Sedimentation Rate 6 Months D72.819 - Decreased white blood cell count, unspecified, M17.12 - Unilateral primary osteoarthritis, left knee JANE Reflex Titer and Pattern 6 Months D72.819 - Decreased white blood cell count, unspecified Medications: Changed From zolpidem Take 1 to 1.5 tablets PO bedtime PRN; 30 days 45 tabs 1RF insomnia To zolpidem 5 mg PO BEDTIME PRN 30 tabs 1RF insomnia 30 days Refilled alprazolam take 1/2 to 1 tablet orally once a day as needed 0.5 mg PO DAILY PRN 15 tabs 1RF anxiety 30 days Coding Level of Care Code Est Pt Level 4 (19446) Diagnoses Benign essential hypertension I10 Osteoporosis without current pathological fracture, unspecified osteoporosis type M81.0 Osteoporosis type: unspecified Presence of current pathological fracture: without current pathological fracture Vitamin D deficiency E55.9 Multinodular thyroid E04.2 Neutropenia, unspecified type D70.9 Leukopenia type: neutropenia Neutropenia type: unspecified Elevated alanine aminotransferase (ALT) level R74.01 Primary osteoarthritis of both knees M17.0 Osteoarthritis type: primary Insomnia, unspecified type G47.00 Insomnia type: unspecified Anxiety F41.9
== END 2023-06-02 11:37 | disposition home or self-care (01) ==
PROVIDERS: PCP Internal Medicine; Visit Provider Internal Medicine
DX: I10 Essential (primary) hypertension (principal); E04.2 Nontoxic multinodular goiter; E55.9 Vitamin D deficiency, unspecified; D70.9 Neutropenia, unspecified; F41.9 Anxiety disorder, unspecified; M81.0 Age-related osteoporosis without current pathological fracture; R74.01 Elevation of levels of liver transaminase levels; M17.0 Bilateral primary osteoarthritis of knee; G47.00 Insomnia, unspecified
CPT/HCPCS: 99214

== ENCOUNTER 2023-11-01 10:00 | Outpatient (AMB) | payer MEDICARE, OTHER, SELFPAY ==
--- NOTE | 2023-11-01 10:03 | A.OFFPC_ITS ---
Vital Signs 11/01/23 10:07 11/01/23 10:53 Height 5 ft 2 in Weight 115 lb 2 oz BMI 21.1 BP 164/90 H 160/86 H Blood Pressure Location Lt brachial Lt brachial Position Sitting Sitting Pulse 77 Pulse Source Pulse Oximeter Pulse Oximetry (%) 98 Oxygen Delivery Method Room Air Intake Visit Reasons: Shoulder pain Airplane Inspector Required: No Accompanied by: Self / Same As Patient Allergies lisinopril Allergy (Unknown, Verified 11/01/23 10:44) Cough Medication List - Last Reconciled 11/01/23 by Spencer Pak MD alprazolam 0.5 mg PO DAILY PRN 30 days amlodipine 5 mg PO DAILY ibuprofen 600 mg PO Q8H PRN zolpidem 5 mg PO BEDTIME PRN 30 days Tobacco use date assessed: 11/01/23 Fall risk assessment: No Falls in past year Last assessed Fall Risk: 11/01/23 Dental Screening Dental Screen Date: 11/01/23 Did you have a dental visit in the last 12 months?: Yes Did you have a dental problem in the last 6 months where you did not have access to dental care?: No Was dental information given to patient?: Patient has dentist HPI Shoulder pain HPI Details Patient comes in today complaining of right shoulder pain for the past 1 to 2 months States that her shoulder felt worse during the first week that it started hurting but the pain has since subsided somewhat although she continues to experience a lingering pain in her shoulder that feels worse when she raises her arm or when she tries to lift something with her right arm States that she also has difficulty reaching back or trying to reach across to touch her left shoulder with the right arm due to the pain in the shoulder She denies any history of injury, trauma or surgery to her right shoulder and also does not recall anything recently that could have led to her current issue States that she does not sleep on any one side in particular as she switches up her position often States that she is also surprised to find out that her blood pressure is very high today States that she takes her Amlodipine everyday and watches her salt intake very carefully She drinks just about 1 cup of coffee in the morning daily and is wondering if her coffee is contributing to her high blood pressure She denies any headaches or dizziness Denies any chest pains, no SOB PFSH Medical History (Updated 11/01/23 @ 11:10 by Spencer Pak MD) Osteoarthritis of both knees Osteoarthritis of left knee Anxiety Insomnia Benign essential hypertension Multinodular thyroid Vitamin D deficiency Osteoporosis Surgical History Hx of colonoscopy (~02/15/18) History of bunionectomy History of bilateral breast implants Family History Father Stroke Mother Hypertension Aneurysm Sister Breast cancer Brother No problems noted. Social History Housing: House Alcohol intake: current Alcohol intake frequency: holidays/special occasions only Alcohol type: wine Patient Tobacco Use Status: Former Tobacco user Years Smoked: 10 e-Cigarette/Vaping Use: Never Used Second Hand Smoke Exposure: Yes service: No Current occupational status: retired Cognitive needs: No Hearing needs: No Vision needs: Yes (glasses) Questionnaire PHQ-9 Over the last 2 weeks, how often have you been bothered by any of the following problems? 1. Little interest or pleasure in doing things: not at all 2. Feeling down, depressed, or hopeless: not at all 3. Trouble falling or staying asleep, or sleeping too much: not at all 4. Feeling tired or having little energy: not at all 5. Poor appetite or overeating: not at all 6. Feeling bad about yourself - or that you are a failure or have let yourself or your family down: not at all 7. Trouble concentrating on things, such as reading the newspaper or watching television: not at all 8. Moving or speaking so slowly that other people could have noticed. Or the opposite - being so fidgety or restless that you have been moving around a lot more than usual: not at all 9. Thoughts that you would be better off or of hurting yourself in some way: not at all Total score: 0 Depression Screening Interpretation: Negative Depression Screening Done: Yes 76803 - PHQ-9 Billing: Yes Source: Developed by Drs. Matias Couch, Janey Nails, Jose Alfredo Hawk and colleagues, with an educational wilfred from [employer]. Thrive Questionnaire Date Thrive assessed: 11/01/23 I am a: Patient What is your living situation today?: I have a steady place to live Within the past 12 months, did the food you bought not last and you didn't have the money to get more?: Never true Within the past 12 months, did you worry whether your food would run out before you got money to buy more?: Never true Do you have trouble paying for medicines?: No Do you have trouble getting transportation to medical appointments?: No Do you have trouble paying your heating and electricity bill?: No Do you have trouble taking care of your child, family member or friend?: No Do you have trouble with day-to-day activities such as bathing, preparing meals, shopping, managing finances, etc.?: No Are you currently unemployed and looking for a job?: No Are you interested in more education?: No Please select the resources that you would like help with: None Currently or been in a relationship where the following occur: no concerns reported THRIVE Score: 0 AUDIT C Alcohol Use Questionnaire (AUDIT-C) 1. How often do you have a drink containing alcohol?: Never 3. How often do you have six or more drinks on one occasion?: Never Total Score: 0 Score Reviewed/Action Taken: Yes CASEY-7 AMB Questionnaire CASEY-7 Date CASEY - 7 assessed: 11/01/23 Feeling nervous, anxious, or on edge: 0 = Not at all Not being able to stop or control worryin = Not at all Worrying too much about different things: 0 = Not at all Trouble relaxin = Not at all Being so restless that it is hard to sit still: 0 = Not at all Becoming easily annoyed or irritable: 0 = Not at all Feeling afraid as if something awful might happen: 0 = Not at all Total CASEY-7 score (0-4 normal; 5-9 mild; 10-14 moderate; 15-21 severe): 0 Source: Developed by Drs. Matias Couch, Janey Nails, Jose Alfredo Hawk and colleagues, with an educational wilfred from [employer]. Review of Systems Const Denies fatigue, Denies fever(s) and Denies headache(s) ENT Denies dysphagia, Denies dizziness, Denies headache(s), Denies neck pain, Denies odynophagia and Denies sore throat Card Denies chest pain, Denies palpitations and Denies dyspnea Resp Denies cough, Denies dyspnea and Denies wheezing GI Denies abdominal pain, Denies constipation, Denies dysphagia, Denies heartburn, Denies diarrhea, Denies nausea, Denies odynophagia and Denies vomiting Denies difficulty voiding, Denies nocturia, Denies dysuria and Denies urinary urgency Musc Reports arthralgias (right shoulder - see HPI) and Denies neck pain Skin/Breast Denies rash Neuro Denies dizziness and Denies headache(s) Endo Denies fatigue and Denies palpitations Aller/Immun Denies wheezing Physical exam (Primary Care) Vital Signs: Last Vital Signs Pulse 77 11/01/23 10:07 BP 164/90 H 11/01/23 10:07 Pulse Ox 98 11/01/23 10:07 Oxygen Delivery Method Room Air 11/01/23 10:07 BMI result Body Mass Index 21.1 Tobacco/Smoking Status: Tobacco use Status Tobacco use date assessed 11/01/23 11/01/23 10:09 Patient Tobacco Use Status Former Tobacco user 11/01/23 10:09 e-Cigarette/Vaping Use Never Used 11/01/23 10:09 PHQ-9: PHQ-9 Score PHQ-9: Total score 0 11/01/23 10:09 Depression Screening Interpretation: Negative Thrive Assessment: Date of Thrive Assessment Date Thrive assessed 11/01/23 11/01/23 10:09 Currently or been in a relationship where the following occur: no concerns reported Const General: no acute distress and alert Neck Neck: Yes no lymphadenopathy and Yes supple Resp Auscultation: clear to auscultation bilaterally, no rales and no wheezes Cardio Rate: regular rate Rhythm: regular rhythm Heart sounds: no murmurs GI Palpation (GI): Soft to palpation, nontender and No hepatosplenomegaly present Extrem General: Yes no clubbing, cyanosis or edema Right upper extremity: shoulder/upper arm Details: tenderness Location: of the A-C joint and abnormal ROM Details: pain with active ROM Details: in ABduction and in flexion Assessment and Plan Assessment & Plan (1) Right shoulder pain: Code(s): M25.511 - Pain in right shoulder Qualifiers: Chronicity: unspecified Qualified Code(s): M25.511 - Pain in right shoulder Plan: Discussed with patient that her current shoulder symptoms appear to be likely due to bursitis or tendinitis Will send her for right shoulder x-rays for further evaluation (2) Benign essential hypertension: Code(s): I10 - Essential (primary) hypertension Plan: Her initial BP is high today; repeat BP also came back elevated at 160/86 Reinforced low sodium diet - goal is systolic BP of at least 120 to 130 mm or less Continue Amlodipine 5 mg QD for now Advised that we will have our nurse navigators follow up with her in a couple of weeks for her BP but she should also try to monitor her BP on her own regularly Will see her back at her appointment for annual PE next month and if her BP remains high at the time, we may need to readjust her meds then (3) Anxiety: Code(s): F41.9 - Anxiety disorder, unspecified Plan: Continue Alprazolam 0.5 mg QD PRN Plan To return as scheduled next month for her annual physical examination Orders: Orders XR shoulder RT min 2V Today M25.511 - Pain in right shoulder Coding Level of Care Code Est Pt Level 3 (47450) Diagnoses Right shoulder pain, unspecified chronicity M25.511 Chronicity: unspecified Benign essential hypertension I10 Anxiety F41.9
[2023-11-01 10:07] VITALS: BP 164/90; PULSE 77; O2SAT 98; BMI 21.1
[2023-11-01 10:53] VITALS: BP 160/86
== END 2023-11-01 10:58 | disposition home or self-care (01) ==
PROVIDERS: PCP Internal Medicine; Visit Provider Internal Medicine
DX: M25.511 Pain in right shoulder (principal); I10 Essential (primary) hypertension; F41.9 Anxiety disorder, unspecified
CPT/HCPCS: 99213

== ENCOUNTER 2023-11-01 11:03 | Outpatient (REF) | payer MEDICARE, OTHER, SELFPAY ==
--- NOTE | ~2023-11-01 | XR_ITS ---
EXAMINATION: XR SHOULDER, RIGHT CLINICAL INFORMATION: Pain in right shoulder COMPARISON: None available. TECHNIQUE: AP external rotation, Grashey, scapular Y, and axillary views of the right shoulder. FINDINGS: The bones are intact. No fracture. Glenohumeral and acromioclavicular alignment is anatomic with normal minimal narrowing of the glenohumeral joint space with small marginal osteophyte off the inferior glenoid. There is some moderate degenerative change of the acromioclavicular joint. No abnormal soft tissue calcifications. XR/XR shoulder RT min 2V IMPRESSION: 1. No acute bony abnormality. 2. Degenerative changes of the glenohumeral and acromioclavicular joints.
== END 2023-11-01 11:04 | disposition home or self-care (01) ==
LOC: HO.XRAY 11:03
PROVIDERS: PCP Internal Medicine; Visit Provider Internal Medicine
DX: M25.511 Pain in right shoulder (principal)
CPT/HCPCS: 73030

== ENCOUNTER 2023-11-25 08:37 | Outpatient (REF) | payer MEDICARE, OTHER, SELFPAY ==
[2023-11-25 08:56] LABS: MANUAL DIFF FLAG NO
[2023-11-25 09:03] LABS: Basophils Percent Auto 0.6 % (0-2); Eosinophils Absolute Auto 0.1 X10*3/uL (0.0-0.4); Eosinophils Percent Auto 1.7 % (0-4); Hematocrit 40.5 % (37.0-47.0); Imm Gran Abs Auto 0.01 X10*3/uL (0.00-0.03); Imm Gran Pct Auto 0.3 % (0.0-0.4); Lymphocytes Absolute Auto 1.4 X10*3/uL (1.2-4.9); Lymphocytes Percent Auto 40.1 % (20-40); Mean Corpuscular HGB Conc 34.6 g/dl (31.0-35.0); Mean Corpuscular Hemoglobin 32.5 pg (27.0-33.0); Mean Platelet Volume 9.5 fL (9.4-12.3); Monocytes Absolute Auto 0.3 X10*3/uL (0.1-1.2); Monocytes Percent Auto 8.1 % (2-11); Neutrophils Absolute Auto 1.7 x10*3/uL (2.0-8.3); Neutrophils Percent Auto 49.2 % (45-73); Platelet Count 280 X10*3/uL (160-400); Red Blood Count 4.31 X10*6/uL (4.20-5.50); White Blood Count 3.5 X10*3/uL (4.8-10.8)
[2023-11-25 09:41] LABS: Erythrocyte Sedimentation Rate 7 MM/HR (0-20)
[2023-11-25 09:42] LABS: Alanine Aminotransferase 15 U/L (0-31); Albumin Level 4.3 g/dL (3.5-5.0); Alkaline Phosphatase 93 U/L (39-117); Anion Gap 11 (12-20); Aspartate Amino Transferase 19 U/L (5-31); Bilirubin Total 0.6 mg/dL (0.0-1.0); Blood Urea Nitrogen 15 mg/dL (9-16); Calcium 9.3 mg/dL (8.4-10.2); Carbon Dioxide 27 mmol/L (22-29); Chloride 110 mmol/L (96-108); Cholesterol 193 mg/dL (<200); Estimated Glomerular Filt Rate > 60; Glucose Fasting 106 mg/dL (60-99); HDL Cholesterol 71 mg/dL (>40); LDL Cholesterol Calculated 107 mg/dL (<100); Potassium 3.9 mmol/L (3.3-5.1); Sodium 144 mmol/L (135-145); Total Protein 7.3 g/dL (6.5-8.0); Triglycerides 77 mg/dL (<150)
[2023-11-25 09:59] LABS: TSH reflex Free T4 1.62 uIU/mL (0.32-4.0); Vitamin D 25-OH Total 32.2 ng/mL (>30)
[2023-11-25 10:07] LABS: Folate 7.8 ng/mL (> or = 4.0); Vitamin B12 359 pg/mL (200-900)
[2023-11-25 10:13] LABS: Appearance Urine Cloudy; Color Urine Yellow; Glucose Urine UA Negative (Negative); Leukocyte Esterase Urine Negative (Negative); Nitrite Urine Negative (Negative); UMIC TRIGGER UACC YES; Urine Blood Large (3+) (Negative); Urine Ketones Negative (Negative); Urine Protein Trace mg/dL (Neg-Trace)
[2023-11-25 10:28] LABS: Bacteria Urine None Seen (None Seen); Calcium Oxalate Crystals Urine Present; Hyaline Casts Urine 0-2 /LPF (0-2); RBC Urine >20 /HPF (0-2); Squamous Epithelial Cell Urine 0-2 /HPF (0-2); WBC Urine 0-5 /HPF (0-5)
[2023-12-01 12:24] LABS: Anti Nuclear Antibody Pattern Nuclear, Homogeneous; Anti Nuclear Antibody Screen POSITIVE (NEGATIVE)
== END 2023-11-25 08:38 | disposition home or self-care (01) ==
LOC: HO.LAB 08:37
PROVIDERS: PCP Internal Medicine; Visit Provider Internal Medicine
DX: D72.819 Decreased white blood cell count, unspecified (principal); M17.12 Unilateral primary osteoarthritis, left knee; E53.8 Deficiency of other specified B group vitamins; I10 Essential (primary) hypertension; E55.9 Vitamin D deficiency, unspecified; E78.00 Pure hypercholesterolemia, unspecified
CPT/HCPCS: 36415; 80053; 80061; 81001; 81003; 82306; 82607; 82746; 84443; 85025; 85652; 86038; 86039

== ENCOUNTER 2023-11-30 12:05 | Outpatient (AMB) | payer MEDICARE, OTHER, SELFPAY ==
[2023-11-30 12:31] VITALS: BMI 21.0
--- NOTE | 2023-11-30 12:31 | MHC.OFFVIS ---
Intake Vital Signs 11/30/23 12:31 Height 5 ft 2 in Weight 115 lb BMI 21.0 Intake Visit Reasons: New Prob - Right Shoulder OA Allergies lisinopril Allergy (Unknown, Verified 11/01/23 10:44) Cough HPI New Prob - Right Shoulder OA HPI Details Nida is a 68 year old right hand dominant female who presents today for a new problem visit for evaluation of her right shoulder OA. Patient reports that she has had pain in the right shoulder for about 3 months now. She lives an active lifestlye, she works out daily but recently she has felt pain radiating down the right arm. She took Ibuprofen 600mg which helped her. Pain is felt all the time, she has pain with ROM particularly across the body, above the head and behind the back [facility] Medical History (Updated 11/30/23 @ 18:32 by Jose Miguel Rodriguez MD) Osteoarthritis of both knees Osteoarthritis of left knee Anxiety Insomnia Benign essential hypertension Multinodular thyroid Vitamin D deficiency Osteoporosis Surgical History Hx of colonoscopy (~02/15/18) History of bunionectomy History of bilateral breast implants Family History Father Stroke Mother Hypertension Aneurysm Sister Breast cancer Brother No problems noted. Social History Housing: House Alcohol intake: current Alcohol intake frequency: holidays/special occasions only Alcohol type: wine Patient Tobacco Use Status: Former Tobacco user Years Smoked: 10 e-Cigarette/Vaping Use: Never Used Second Hand Smoke Exposure: Yes service: No Current occupational status: retired Cognitive needs: No Hearing needs: No Vision needs: Yes (glasses) Review of Systems Const Reports as per HPI and Reports no additional complaints Eyes Reports no additional complaints Card Reports as per HPI and Reports no additional complaints Resp Reports as per HPI and Reports no additional complaints GI Reports as per HPI and Reports no additional complaints Musc Details: Shoulder pain Skin/Breast Reports system reviewed and no additional complaints, except as documented Neuro Reports no additional complaints Psych Reports no additional complaints Physical Exam Vital Signs: BMI result Body Mass Index 21.0 Const General: cooperative, healthy appearing, no acute distress and well groomed Orientation/consciousness: oriented to person and oriented to place HEENT Head: Yes normal to inspection, Yes normocephalic and Yes atraumatic Eyes General: appearance normal, both eyes and all related structures Alignment and Position: alignment normal Conjunctivae: conjunctivae normal EOM: EOMs intact bilaterally Neck Neck: Yes normal visual inspection and Yes trachea midline Resp Other: No rerpiratory distress Effort & Inspection: normal respiratory effort and able to speak in complete sentences Cardio Other: Palpable radial pulse with no appreciable rythmic abnormalities GI Other: No abdominal distension Back/Spine/Pelvis Cervical Spine: normal cervical lordosis and cervical ROM normal Skin General skin exam: no rashes or lesions noted Neuro General: oriented to person, oriented to place and gait normal Extrem Other: Full passive range of motion Negative empty can Positive Jensen Positive Neer Office Procedures Joint Injection/Drain Joint Injection/Drain Details: Injected 1 mL of Decadron and 3 mL 1% lidocaine and 3 mL of 0.25% Marcaine. Site was prepped using aseptic technique. Patient tolerated the procedure well. Primary Site: right shoulder Approach Used: posterolateral Coding - Large joint Procedure code (CPT) selection complete Results Reviewed Results Reviewed: I personally reviewed relevant radiographs. Moderate AC joint OA, with mild glenohumeral OA Assessment & Plan Assessment & Plan (1) Bursitis of right shoulder: Code(s): M75.51 - Bursitis of right shoulder Plan: Right shoulder bursitis and a very pleasant 68-year-old active woman I injected her right shoulder and recommend physical therapy. She may follow up after physical therapy for pain has not improved. Continue NSAIDs as needed Orders: Orders PT Evaluation and Treatment Today M75.51 - Bursitis of right shoulder Coding Level of Care Code New Pt Level 3 (63009) Diagnoses Bursitis of right shoulder M75.51 CPT Codes Coding - 67377 Large joint: 40052 - Large joint ([id number])
== END 2023-11-30 14:14 | disposition home or self-care (01) ==
PROVIDERS: PCP Internal Medicine; Visit Provider Orthopaedic Surgery
DX: M75.51 Bursitis of right shoulder (principal)
CPT/HCPCS: 20610; 99203

== ENCOUNTER → 2023-11-30 12:05 | Outpatient (BNVA) | payer MEDICARE, OTHER, SELFPAY | PROVIDERS: PCP Internal Medicine; Visit Provider Orthopaedic Surgery | DX: M75.51 Bursitis of right shoulder (principal) | CPT/HCPCS: 20610; 99202; J0665; J1100 ==

== ENCOUNTER 2023-12-04 10:00 | Outpatient (AMB) | payer MEDICARE, OTHER, SELFPAY ==
[2023-12-04 10:10] VITALS: BP 124/82; PULSE 88; O2SAT 99; BMI 20.9
--- NOTE | 2023-12-04 10:10 | MHC.PC.OV ---
Vital Signs 12/04/23 10:10 Height 5 ft 2 in Weight 114 lb 8 oz BMI 20.9 BP 124/82 Blood Pressure Location Lt brachial Position Sitting Pulse 88 Pulse Source Pulse Oximeter Pulse Oximetry (%) 99 Oxygen Delivery Method Room Air Intake Visit Reasons: annual PE Postal Mail Carrier Required: No Accompanied by: Self / Same As Patient Allergies lisinopril Allergy (Unknown, Verified 12/15/23 17:23) Cough Medication List - Last Reconciled 12/15/23 by Spencer Pak MD alprazolam 0.5 mg PO DAILY PRN 30 days amlodipine 5 mg PO DAILY ibuprofen 800 mg PO Q8H PRN 30 days mirabegron ER (Myrbetriq) 25 mg PO DAILY 30 days zolpidem 5 mg PO BEDTIME PRN 30 days Tobacco use date assessed: 12/04/23 Fall risk assessment: No Falls in past year Last assessed Fall Risk: 12/04/23 Dental Screening Dental Screen Date: 12/04/23 Did you have a dental visit in the last 12 months?: Yes Did you have a dental problem in the last 6 months where you did not have access to dental care?: No Was dental information given to patient?: Patient has dentist HPI annual PE HPI Details Patient comes in today for her annual physical examination States that she has been experiencing urinary frequency and urgency often lately; denies any dysuria She also continues to experience increased pain in her right shoulder and would like to have her Ibuprofen dose increased from 600 mg to 800 mg for better pain relief States that she feels okay otherwise She denies any headaches or dizziness Denies any chest pains, no SOB No nausea/vomiting, no abdominal pain No change in bowel habits noted Had her follow up labs done last week - to discuss her results She had a normal colonoscopy done back in 2017 and is recommended to get this repeated in 10 years (2027) She is up-to-date with her annual mammogram (last done in May 2023) and gynecology exam and pap smear - she goes to [facility] for her mammogram and gynecology exam/follow up Her BMD was last done in November 2022, which showed (+) osteoporosis with the lowest T-score value of -2.8 in the lumbar spine [facility] Medical History (Updated 12/04/23 @ 11:28 by Spencer Pak MD) Overactive bladder Osteoarthritis of both knees Osteoarthritis of left knee Anxiety Insomnia Benign essential hypertension Multinodular thyroid Vitamin D deficiency Osteoporosis Surgical History Hx of colonoscopy (~02/15/18) History of bunionectomy History of bilateral breast implants Family History Father Stroke Mother Hypertension Aneurysm Sister Breast cancer Brother No problems noted. Social History Housing: House Alcohol intake: current Alcohol intake frequency: holidays/special occasions only Alcohol type: wine Patient Tobacco Use Status: Former Tobacco user Years Smoked: 10 e-Cigarette/Vaping Use: Never Used Second Hand Smoke Exposure: Yes service: No Current occupational status: retired Cognitive needs: No Hearing needs: No Vision needs: Yes (glasses) Questionnaire PHQ-9 Over the last 2 weeks, how often have you been bothered by any of the following problems? 1. Little interest or pleasure in doing things: not at all 2. Feeling down, depressed, or hopeless: not at all 3. Trouble falling or staying asleep, or sleeping too much: not at all 4. Feeling tired or having little energy: not at all 5. Poor appetite or overeating: not at all 6. Feeling bad about yourself - or that you are a failure or have let yourself or your family down: not at all 7. Trouble concentrating on things, such as reading the newspaper or watching television: not at all 8. Moving or speaking so slowly that other people could have noticed. Or the opposite - being so fidgety or restless that you have been moving around a lot more than usual: not at all 9. Thoughts that you would be better off or of hurting yourself in some way: not at all Total score: 0 Depression Screening Interpretation: Negative Depression Screening Done: Yes 71386 - PHQ-9 Billing: Yes Source: Developed by Drs. Matias Couch, Janey Nails, Jose Alfredo Hawk and colleagues, with an educational wilfred from [email or web address]. Thrive Questionnaire Date Thrive assessed: 12/04/23 I am a: Patient What is your living situation today?: I have a steady place to live Within the past 12 months, did the food you bought not last and you didn't have the money to get more?: Never true Within the past 12 months, did you worry whether your food would run out before you got money to buy more?: Never true Do you have trouble paying for medicines?: No Do you have trouble getting transportation to medical appointments?: No Do you have trouble paying your heating and electricity bill?: No Do you have trouble taking care of your child, family member or friend?: No Do you have trouble with day-to-day activities such as bathing, preparing meals, shopping, managing finances, etc.?: No Are you currently unemployed and looking for a job?: No Are you interested in more education?: No Please select the resources that you would like help with: None Currently or been in a relationship where the following occur: no concerns reported THRIVE Score: 0 AUDIT C Alcohol Use Questionnaire (AUDIT-C) 1. How often do you have a drink containing alcohol?: Never 3. How often do you have six or more drinks on one occasion?: Never Total Score: 0 Score Reviewed/Action Taken: Yes CASEY-7 AMB Questionnaire CASEY-7 Date CASEY - 7 assessed: 12/04/23 Feeling nervous, anxious, or on edge: 0 = Not at all Not being able to stop or control worryin = Not at all Worrying too much about different things: 0 = Not at all Trouble relaxin = Not at all Being so restless that it is hard to sit still: 0 = Not at all Becoming easily annoyed or irritable: 0 = Not at all Feeling afraid as if something awful might happen: 0 = Not at all Total CASEY-7 score (0-4 normal; 5-9 mild; 10-14 moderate; 15-21 severe): 0 Source: Developed by Drs. Matias Couch, Janey Nails, Jose Alfredo Hawk and colleagues, with an educational wilfred from [email or web address]. Review of Systems Const Denies chills, Denies fatigue, Denies fever(s), Denies headache(s) and Denies malaise Eyes Denies blurry vision, Denies change in vision, Denies irritation and Denies itchy eyes ENT Denies dysphagia, Denies dizziness, Denies otalgia, Denies headache(s), Denies nasal congestion, Denies neck pain, Denies odynophagia, Denies sinus pain and Denies sore throat Card Denies chest pain, Denies rapid heart rate, Denies irregular heart rhythm, Denies palpitations and Denies dyspnea Resp Denies chest congestion, Denies cough, Denies dyspnea and Denies wheezing GI Denies abdominal pain, Denies bloating, Denies constipation, Denies dysphagia, Denies heartburn, Denies diarrhea, Denies nausea, Denies odynophagia and Denies vomiting Denies hematuria, Denies urinary frequency, Reports nocturia, Denies dysuria, Denies urinary incontinence and Reports urinary urgency (at times) Musc Denies back pain, Reports arthralgias (right shoulder), Denies muscle weakness and Denies neck pain Skin/Breast Denies breast pain, Denies breast mass, Denies change in pigmentation, Denies lesions, Denies rash and Denies unusual bruising Neuro Denies dizziness, Denies headache(s) and Denies paresthesias Psych Denies anxiety and Denies depression Endo Denies fatigue and Denies palpitations Jeremy/Lymph Denies easy bruising Aller/Immun Denies itchy eyes and Denies wheezing Physical exam (Primary Care) Vital Signs: Last Vital Signs Pulse 88 12/04/23 10:10 BP 124/82 12/04/23 10:10 Pulse Ox 99 12/04/23 10:10 Oxygen Delivery Method Room Air 12/04/23 10:10 BMI result Body Mass Index 20.9 Tobacco/Smoking Status: Tobacco use Status Tobacco use date assessed 12/04/23 12/04/23 10:12 Patient Tobacco Use Status Former Tobacco user 12/04/23 10:12 e-Cigarette/Vaping Use Never Used 12/04/23 10:12 PHQ-9: PHQ-9 Score PHQ-9: Total score 0 12/04/23 11:00 Depression Screening Interpretation: Negative Thrive Assessment: Date of Thrive Assessment Date Thrive assessed 12/04/23 12/04/23 10:12 Currently or been in a relationship where the following occur: no concerns reported Const General: no acute distress, alert and awake Orientation/consciousness: patient oriented x3 HENMT Head: Yes normocephalic and Yes atraumatic Ears: external ears normal, TM's normal bilaterally and EAC's normal General nose exam: No nasal discharge present Face and sinus: Yes normal facial exam and Yes sinuses nontender Teeth and gingiva: dentition normal Throat: Yes posterior oropharynx normal and Yes tonsils normal (no TP congestion) Eyes Eyelids: Yes eyelids normal Conjunctivae: conjunctivae normal Pupils: Equal, round and reactive pupils present EOM: EOMs intact bilaterally Neck Neck: Yes no lymphadenopathy and Yes supple Thyroid: Thyroid normal Resp Auscultation: clear to auscultation bilaterally, no rales and no wheezes Cardio Rate: regular rate Rhythm: regular rhythm Heart sounds: no murmurs GI Palpation (GI): Soft to palpation, nontender and No hepatosplenomegaly present Auscultation: normal bowel sounds General: Yes no CVA tenderness Back/Spine/Pelvis Back: no CVA tenderness Cervical Spine: No Cervical spine tenderness Thoracic/Lumbar Spine: No lumbar spinal tenderness Skin Lesions: no lesions Rashes: no rashes Neuro General: patient oriented x3, moves all extremities, no focal motor deficits and CN's II-XI intact bilaterally Cranial nerves: Yes Equal, round and reactive pupils present Cognition (Neuro): normal cognition Gait exam (Neuro): Normal gait present Extrem General: Yes no clubbing, cyanosis or edema Right upper extremity: shoulder/upper arm Details: tenderness Location: of the A-C joint and normal ROM Results Reviewed Results Reviewed: Laboratory Tests 11/25/23 08:55 WBC 3.5 L Hgb 14.0 Hct 40.5 Plt Count 280 ESR 7 Sodium 144 Potassium 3.9 Creatinine 0.72 Estimated GFR > 60 Fasting Glucose 106 H Calcium 9.3 AST 19 ALT 15 Triglycerides 77 Cholesterol 193 LDL Cholesterol, Calc 107 H HDL Cholesterol 71 Vitamin B12 359 25-OH Vitamin D Total 32.2 TSH 1.62 Ur Specific [place] 1.020 Urine Protein Trace Urine Glucose (UA) Negative Urine Blood Large (3+) H Urine Nitrite Negative Ur Leukocyte Esterase Negative Urine RBC >20 H JANE Screen POSITIVE A JANE Titer 1:320 H JANE Pattern Nuclear, Homogeneous A Assessment and Plan Assessment & Plan (1) Annual physical exam: Code(s): Z00.00 - Encounter for general adult medical examination without abnormal findings Plan: Results of her labs done last week reviewed and discussed with patient She is up-to-date with all of her cancer screenings (2) Benign essential hypertension: Code(s): I10 - Essential (primary) hypertension Plan: Reinforced low sodium diet - goal is systolic BP of at least 120 to 130 mm or less Continue Amlodipine 5 mg QD She is reminded to continue monitoring her BP regularly (3) Right shoulder pain: Code(s): M25.511 - Pain in right shoulder Qualifiers: Chronicity: unspecified Qualified Code(s): M25.511 - Pain in right shoulder Plan: X-rays of the shoulder done last month revealed (+) degenerative changes of the glenohumeral and acromioclavicular joints with no acute bony abnormalities noted Per request, will increase her Ibuprofen to 800 mg TID with food PRN Patient is advised that if her shoulder pain persists or gets worse, we will likely have to refer her to orthopedics for further evaluation and management (4) Osteoporosis: Code(s): M81.0 - Age-related osteoporosis without current pathological fracture Qualifiers: Osteoporosis type: unspecified Presence of current pathological fracture: without current pathological fracture Qualified Code(s): M81.0 - Age-related osteoporosis without current pathological fracture Plan: Her most recent BMD done in November 2022 revealed (+) osteoporosis with the lowest T-score value of -2.8 in the lumbar spine This is mostly unchanged from her previous BMD in 2020 She was seen by endocrinology a couple of years ago but was not interested in taking pharmacologic therapy at the time and wanted to wait and see how her next bone density comes out As her BMD last year was mostly unchanged, she remains uninterested in pharmacotherapy for her osteoporosis and wishes to continue with her regular exercise regimen and daily vitamin D and calcium supplementation for now Fall precautions reinforced She will be getting a follow up BMD done again in 2 years from her last one - sometime on or after November 2024 (5) Multinodular thyroid: Code(s): E04.2 - Nontoxic multinodular goiter Plan: Her TFTs were normal on her recent labs Will send her for follow up thyroid US (6) Vitamin D deficiency: Code(s): E55.9 - Vitamin D deficiency, unspecified Plan: Corrected - continue OTC Vitamin D3 2000 units (50 mcg) QD (7) Overactive bladder: Code(s): N32.81 - Overactive bladder Plan: Will start her on a trial of Myrbetriq ER 25 mg QD to help with her urinary symptoms (8) Asymptomatic microscopic hematuria: Code(s): R31.21 - Asymptomatic microscopic hematuria Plan: Will send her for repeat U/A and also check her urine cytology for further evaluation (9) JANE positive: Code(s): R76.8 - Other specified abnormal immunological findings in serum Plan: She is advised that her JANE screen came back positive but this is non-specific and does not necessarily mean that she has lupus or some other inflammatory joint disease as she currently has no other symptoms suggestive of this Will send her for a double-stranded anti-DNA testing for further evaluation and advised that if this comes back negative, then no further testing is indicated (10) Anxiety: Code(s): F41.9 - Anxiety disorder, unspecified Plan: Continue Alprazolam 0.5 mg QD PRN Plan Follow up in 6 months Orders: Orders US thyroid 12/04/23 E04.2 - Nontoxic multinodular goiter Anti DNA DS Antibody 12/04/23 R76.8 - Other specified abnormal immunological findings in serum Urine Cytology 12/04/23 R31.1 - Benign essential microscopic hematuria, R31.9 - Hematuria, unspecified C Reactive Protein 12/04/23 R76.8 - Other specified abnormal immunological findings in serum UA CC w/rflx Micro + Cult 12/04/23 R31.9 - Hematuria, unspecified Medications: New mirabegron ER (Myrbetriq) 25 mg PO DAILY 30 tabs 3RF 30 days Changed From ibuprofen 600 mg PO Q8H PRN 20 tabs 0RF pain M25.521 - Pain in right elbow To ibuprofen Take with food and only as needed 800 mg PO Q8H PRN 90 tabs 2RF pain 30 days M25.521 - Pain in right elbow Coding Level of Care Code Est Pt Prev Care >65y(47114) Diagnoses Annual physical exam Z00.00 Benign essential hypertension I10 Right shoulder pain, unspecified chronicity M25.511 Chronicity: unspecified Osteoporosis without current pathological fracture, unspecified osteoporosis type M81.0 Osteoporosis type: unspecified Presence of current pathological fracture: without current pathological fracture Multinodular thyroid E04.2 Vitamin D deficiency E55.9 Overactive bladder N32.81 Asymptomatic microscopic hematuria R31.21 JANE positive R76.8 Anxiety F41.9
== END 2023-12-04 11:22 | disposition home or self-care (01) ==
PROVIDERS: PCP Internal Medicine; Visit Provider Internal Medicine
DX: I10 Essential (primary) hypertension (principal); N32.81 Overactive bladder; M25.511 Pain in right shoulder; M81.0 Age-related osteoporosis without current pathological fracture; E04.2 Nontoxic multinodular goiter; E55.9 Vitamin D deficiency, unspecified; R31.21 Asymptomatic microscopic hematuria; R76.8 Other specified abnormal immunological findings in serum; F41.9 Anxiety disorder, unspecified
CPT/HCPCS: 99214

== ENCOUNTER 2023-12-04 11:24 | Outpatient (REF) | payer MEDICARE, OTHER, SELFPAY ==
[2023-12-04 11:40] LABS: MANUAL DIFF FLAG NO
[2023-12-04 12:23] LABS: Urine Cytology See Pathology rpt
[2023-12-04 12:41] LABS: Basophils Percent Auto 0.5 % (0-2); Eosinophils Absolute Auto 0.1 X10*3/uL (0.0-0.4); Eosinophils Percent Auto 1.2 % (0-4); Hematocrit 42.1 % (37.0-47.0); Hemoglobin 14.3 g/dl (12.0-16.0); Imm Gran Abs Auto 0.02 X10*3/uL (0.00-0.03); Imm Gran Pct Auto 0.5 % (0.0-0.4); Lymphocytes Absolute Auto 1.8 X10*3/uL (1.2-4.9); Lymphocytes Percent Auto 41.6 % (20-40); Mean Corpuscular Hemoglobin 32.2 pg (27.0-33.0); Mean Corpuscular Volume 94.8 fL (80.0-98.0); Mean Platelet Volume 10.2 fL (9.4-12.3); Monocytes Absolute Auto 0.3 X10*3/uL (0.1-1.2); Monocytes Percent Auto 6.2 % (2-11); Neutrophils Absolute Auto 2.2 x10*3/uL (2.0-8.3); Platelet Count 295 X10*3/uL (160-400); Red Blood Count 4.44 X10*6/uL (4.20-5.50); White Blood Count 4.3 X10*3/uL (4.8-10.8)
[2023-12-04 13:16] LABS: Rheumatoid Factor < 13.0 IU/mL (<15.0)
[2023-12-04 13:22] LABS: Appearance Urine Clear; Color Urine Yellow; Glucose Urine UA Negative (Negative); Leukocyte Esterase Urine Negative (Negative); Nitrite Urine Negative (Negative); Urine Blood Negative (Negative); Urine Ketones Negative (Negative); Urine Protein Negative (Neg-Trace)
[2023-12-04 13:25] LABS: Alanine Aminotransferase 21 U/L (0-31); Albumin Level 4.4 g/dL (3.5-5.0); Alkaline Phosphatase 93 U/L (39-117); Anion Gap 14 (12-20); Aspartate Amino Transferase 22 U/L (5-31); Bilirubin Total 0.7 mg/dL (0.0-1.0); Blood Urea Nitrogen 11 mg/dL (9-16); C Reactive Protein < 0.04 mg/dL (< or = 0.50); Calcium 9.5 mg/dL (8.4-10.2); Carbon Dioxide 26 mmol/L (22-29); Chloride 107 mmol/L (96-108); Cholesterol 199 mg/dL (<200); Estimated Glomerular Filt Rate > 60; Glucose Fasting 108 mg/dL (60-99); HDL Cholesterol 73 mg/dL (>40); LDL Cholesterol Calculated 106 mg/dL (<100); Potassium 3.6 mmol/L (3.3-5.1); Sodium 143 mmol/L (135-145); Total Protein 7.6 g/dL (6.5-8.0); Triglycerides 101 mg/dL (<150)
[2023-12-04 13:27] LABS: Folate 9.3 ng/mL (> or = 4.0); Vitamin B12 328 pg/mL (200-900)
[2023-12-04 13:53] LABS: Erythrocyte Sedimentation Rate 8 MM/HR (0-20)
[2023-12-05 22:13] LABS: Anti DNA DS Antibody 1 IU/mL
[2023-12-08 16:23] LABS: Vitamin B6 13.7 ng/mL (2.1-21.7)
[2023-12-09 18:23] LABS: Anti Nuclear Antibody Pattern Nuclear, Homogeneous; Anti Nuclear Antibody Screen POSITIVE (NEGATIVE)
== END 2023-12-04 11:25 | disposition home or self-care (01) ==
LOC: HO.LAB 11:24
PROVIDERS: PCP Internal Medicine; Visit Provider Internal Medicine
DX: E78.00 Pure hypercholesterolemia, unspecified (principal); R30.0 Dysuria; D70.9 Neutropenia, unspecified; R31.1 Benign essential microscopic hematuria; R31.9 Hematuria, unspecified; I10 Essential (primary) hypertension; R76.8 Other specified abnormal immunological findings in serum; E53.8 Deficiency of other specified B group vitamins
CPT/HCPCS: 36415; 80053; 80061; 81003; 82607; 82746; 84207; 85025; 85652; 86038; 86039; 86140; 86225; 86431; 88112

== ENCOUNTER 2023-12-18 10:11 | Outpatient (REF) | payer MEDICARE, OTHER, SELFPAY ==
--- NOTE | ~2023-12-18 | US_ITS ---
EXAMINATION: US THYROID CLINICAL INFORMATION: Nontoxic multinodular goiter. Followup ultrasound. COMPARISON: Thyroid ultrasound 02/17/2021. TECHNIQUE: Linear transducer gonzalez-scale and color Doppler examination with attention to the region of the thyroid. FINDINGS: SIZE: Measurements of the thyroid lobes and nodules are given in sagittal, anteroposterior and transverse dimensions respectively. Right Thyroid Lobe: 4.9 x 1.2 x 1.1 cm, volume 3.0 mL. Previously 5.2 x 1.6 x 1.2 cm, volume 5.2 mL. Parenchyma: The gland echotexture is homogeneous. Thyroid vascularity is normal. Left Thyroid Lobe: 4.5 x 0.9 x 1.5 cm, volume 2.8 mL. Previously 4.7 x 1.5 x 1.3 cm, volume 4.8 mL. Parenchyma: The gland echotexture is homogeneous. Thyroid vascularity is normal. Isthmus: 0.3 cm in maximum AP dimension. Previously 0.3 cm. Estimated total number of nodules greater than or equal to 1 cm: 0. 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 Location: Right mid. Size: 0.4 x 0.4 x 0.3 cm, volume 0.03 mL. Previously: 0.5 x 0.3 x 0.3 cm, volume 0.02 mL. Nodule characteristics: Composition: Solid (2). Echogenicity: Very hypoechoic (3). Shape: Not taller than wide (0). Margins: Irregular (2). Echogenic Foci: Punctate echogenic foci (3). ACR TI-RADS total points: 10 Previous: 6 ACR TI-RADS category: 5 Previous: 4 Significant change in size (>/= 20% in 2 dimensions and minimal increase of 2 mm or 50% or greater increase in volume): No Change in features: Yes Change in ACR TI-RADS risk category: Yes 2. Location: Left superior. Size: 0.3 x 0.3 x 0.3 cm, volume 0.01 mL. Previously: 0.5 x 0.3 x 0.3 cm, volume 0.02 mL. Nodule characteristics: Composition: Solid (2). Echogenicity: Isoechoic (1). Shape: Not taller than wide (0). Margins: Smooth (0). Echogenic Foci: None (0). ACR TI-RADS total points: 3 Previous: 3 ACR TI-RADS category: 3 Previous: 3 Significant change in size (>/= 20% in 2 dimensions and minimal increase of 2 mm or 50% or greater increase in volume): No Change in features: No Change in ACR TI-RADS risk category: No 3. Location: Left mid. Size: 0.6 x 0.3 x 0.5 cm, volume 0.05 mL. Previously: 0.5 x 0.4 x 0.4 cm, volume 0.04 mL. Nodule characteristics: Composition: Solid (2). Echogenicity: Hypoechoic (2). Shape: Not taller than wide (0). Margins: Smooth (0). Echogenic Foci: None (0). ACR TI-RADS total points: 4 Previous: 3 ACR TI-RADS category: 4 Previous: 3 Significant change in size (>/= 20% in 2 dimensions and minimal increase of 2 mm or 50% or greater increase in volume): No Change in features: Yes Change in ACR TI-RADS risk category: Yes 4. Location: Left mid. Size: 0.5 x 0.3 x 0.4 cm, volume 0.03 mL. Previously: Not seen on the previous study. Nodule characteristics: Composition: Solid (2). Echogenicity: Hypoechoic (2). Shape: Not taller than wide (0). Margins: Smooth (0). Echogenic Foci: None (0). ACR TI-RADS total points: 4 ACR TI-RADS category: 4 NODES: No abnormal lymph nodes. US/US thyroid IMPRESSION: A 0.4 cm right mid pole TR 5 nodule is now taller than wide, very hypoechoic and demonstrates irregular margins. Recommend follow-up ultrasound in one year. Additional subcentimeter TR 3 and 4 nodules, do not meet size criteria for further evaluation. No suspicious extrathyroidal lymph nodes. ACR TI-RADS RECOMMENDATION REFERENCE: Ultrasound-guided fine-needle aspiration, follow up ultrasound, no further followup. * TR1 (0 point) and TR2 (2 points): No FNA or followup * TR3 (3 points): FNA if more than or equal to 2.5 cm in maximum dimension, follow up ultrasound in 1, 3 and 5 years if 1.5 to 2.4 cm in maximum dimension. * TR4 (4-6 points): FNA if more than or equal to 1.5 cm in maximum dimension, follow up ultrasound in 1, 2, 3 and 5 years if 1 to 1.4 cm in maximum dimension. * TR5 (more than or equal to 7 points): FNA if more than or equal to 1 cm in maximum dimension, follow up ultrasound every year for 5 years if 0.5 to 0.9 cm in maximum dimension. * TR3, TR4 or TR5 nodules that are below the size threshold for follow up receive no followup.
== END 2023-12-18 10:12 | disposition home or self-care (01) ==
LOC: HO.US 10:11
PROVIDERS: PCP Internal Medicine; Visit Provider Internal Medicine
DX: E04.2 Nontoxic multinodular goiter (principal)
CPT/HCPCS: 76536

== ENCOUNTER 2023-12-21 11:00 | Outpatient (RCR) | payer MEDICARE, OTHER, SELFPAY ==
--- NOTE | 2023-12-13 13:47 | MHC.PT.EP ---
[facility] [place] Office [place] Office [place] Office [address] Richie Johnson [address] [phone] F: [phone] F: [phone] F: [phone] F: [phone] Physical Therapy Plan of Care Date of Evaluation: 12/13/23 Date of Surgery: NA Diagnosis: BURSITIS R SHOULDER Assessment: Pt IS 68 YO F REFERRED TO PT FROM [facility]THO (DR BRITT) WITH R SHLDER BURSITIS. OF 3 MONTH DURATION. Pt REPORTS NO SPECIFIC INJURY BUT TYPICALLY WORKS OUT DAILY. REPORTS TEMPORARY RELIEF FROM CORTISONE (DECADRON) INJECTION AND UNABLE TO TAKE IBUPROFEN 800 BECAUSE OF STOMACH ISSUES. PRESENTS TO PT WITH LIMITED R SHLDER ROM AND STRENGTH WITH ASYMMETRICAL SHLDER POSTURE, PAIN AND LIMITED FUNCTIONAL USE. + MOD IMPINGEMENT TEST AND ?LABRAL INVOLVEMENT (CLICKING NOTED DURING EVAL. SHOULD BENEFIT FROM PT TO ADDRESS THESE ISSUES. MAY NEED MRI IF SXS CONTINUE/WORSEN TO FURTHER ASSESS FOR LABRAL/RC TEARS Frequency and Duration: The patient will be seen 2X/WK X 8 WKS Short Term Goals: 1. INCREASED POSTURE AWARENESS AND AWARENESS SHLDER CARE 2. IMPROVED TOLERANCE TO PEC STRETCH/POSTURE WORK 3. I HEP WITH DC EX PLAN Usp Goals: 1. INCREASED R SHLDER ROM AT LEAST 20 DEGREES T/O 2. DECREASED R SHLDER PAIN AT LEAST 50% WITH ADLS 3. RETURN TO UPPER BODY WORK OUTS WITHOUT SX INCREASE 4. IMPROVED SPADI 5. INCREASED R SHLDER STRENGTH 1/2-1 MM GRADE Treatment Plan: Modalities to reduce pain, spasms and effusion. Manual therapy to restore motion and function. Therapeutic exercise to improve strength and flexibility. Neuromuscular re-education for posture and balance. Therapeutic activities to return to functional activities of daily living. Electronically signed by: ANTONIO WASHINGTON PT Please sign and return to therapist. Thank you for your referral.
== END 2024-03-18 07:33 | disposition home or self-care (01) ==
LOC: HO.PTWFD 11:00
PROVIDERS: PCP Internal Medicine; Visit Provider Orthopaedic Surgery
DX: M75.51 Bursitis of right shoulder (principal)
CPT/HCPCS: 97014; 97110; 97140; 97161; 97535

== ENCOUNTER 2023-12-22 07:33 | Outpatient (AMB) | payer MEDICARE, OTHER, SELFPAY ==
[2023-12-22 07:36] VITALS: BP 132/80; PULSE 84; TEMP 36; O2SAT 98; BMI 20.8
--- NOTE | 2023-12-22 07:36 | A.OFFVIS_ITS ---
Intake Vital Signs 12/22/23 07:36 Height 5 ft 2 in Weight 114 lb BMI 20.8 BP 132/80 Blood Pressure Location Lt brachial Position Sitting Pulse 84 Pulse Source Pulse Oximeter Temp 96.8 F Temp Source Skin Pulse Oximetry (%) 98 Oxygen Delivery Method Room Air Intake Visit Reasons: Abnormal lab/LVM Intake Note: New pt, presents today for abnormal lab. Reports joint pain. Seeing Dr. Rodriguez. Recently had 2 cortisone injections lasting 2 hours. Going to PT. Reports difficulty swallowing and tickle on her throat. 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 This was in the context of hematuria. Hematuria resolved on repeat testing after adequate hydration. She states that she has been having right shoulder pain recently. She was evaluated by Dr. Rodriguez and had 2 steroid injections. She was told she likely had bursitis. She stated that the injections did not help, they only lasted 2 hours. She has been working with physical therapy for the last 2 weeks without much improvement. She states that she will be going back to Dr. Rodriguez. She mentions that she sometimes gets some stiffness of her PIP is. No swelling. She denies any fevers, unintentional weight loss. Denies any history of DVT / PE. She isUnaware of any family history of an autoimmune rheumatic disease. Denies any rashes. she was told that she has a lump in her thyroid and an ultrasound was done recently, results not yet available. She gets intermittent difficulty swallowing and intermittent cough [facility] Medical History (Updated 12/22/23 @ 08:05 by Danyelle Banuelos MD) Overactive bladder Osteoarthritis of both knees Osteoarthritis of left knee Anxiety Insomnia Benign essential hypertension Multinodular thyroid Vitamin D deficiency Osteoporosis Surgical History Hx of colonoscopy (~02/15/18) History of bunionectomy History of bilateral breast implants Family History Father Stroke Mother Hypertension Aneurysm Sister Breast cancer Brother No problems noted. Social History Housing: House Alcohol intake: current Alcohol intake frequency: holidays/special occasions only Alcohol type: wine Patient Tobacco Use Status: Former Tobacco user Years Smoked: 10 e-Cigarette/Vaping Use: Never Used Second Hand Smoke Exposure: Yes service: No Current occupational status: retired Cognitive needs: No Hearing needs: No Vision needs: Yes (glasses) Female Reproductive History Menstrual Total pregnancies: 2 Number of Living Children: 2 Review of Systems Const Denies fever(s), Denies weakness and Denies weight loss ENT Reports dysphagia GI Reports dysphagia Musc Reports arthralgias, Reports limited range of motion and Reports stiffness Skin/Breast Denies rash Neuro Denies weakness Physical Exam Vital Signs: Last Vital Signs Temp 96.8 F 12/22/23 07:36 Pulse 84 12/22/23 07:36 BP 132/80 12/22/23 07:36 Pulse Ox 98 12/22/23 07:36 Oxygen Delivery Method Room Air 12/22/23 07:36 BMI result Body Mass Index 14.3 Const General: cooperative, healthy appearing and comfortable Nutritional Appearance: thin Orientation/consciousness: patient oriented x3 Limitations: no limitations HEENT Head: Yes normocephalic and Yes atraumatic Mouth: moist mucous membranes Resp Effort & Inspection: normal respiratory effort and able to speak in complete sentences Auscultation: clear to auscultation bilaterally Cardio Rate: regular rate Rhythm: regular rhythm GI Palpation (GI): Soft to palpation and nontender Skin General skin exam: no rashes or lesions noted Neuro General: patient oriented x3 Extrem Other: significantly limited right shoulder abduction pain with range of motion No tenderness to palpation No active synovitis osteoarthritic changes of both hands no knee pain with full flexion and extension bilaterally Assessment & Plan Assessment & Plan (1) JANE positive: Code(s): R76.8 - Other specified abnormal immunological findings in serum Plan: 68-year-old female is referred for evaluation of positive JANE. This was ordered in the context of hematuria. Which resolved after adequate hydration. No proteinuria on urinalysis. labs showed intermittent neutropenia with no lymphopenia, no anemia or thrombocytopenia. Inflammatory markers normal. DsDNA negative. Upon evaluation I do not see any signs suggestive of an autoimmune rheumatic disease. Significance of her positive JANE is unclear. Discussed with patient's symptoms and signs that are suggestive of an autoimmune rheumatic disease. advised patient to return as needed Plan I spent 25 minutes reviewing patient's chart, evaluating patient, counseling patient and documenting in the chart Coding Level of Care Code New Pt Level 3 (30821) Diagnoses JANE positive R76.8
== END 2023-12-22 08:01 | disposition home or self-care (01) ==
PROVIDERS: PCP Internal Medicine; Visit Provider Student in an Organized Health Care Education/Training Program
DX: R76.8 Other specified abnormal immunological findings in serum (principal)
CPT/HCPCS: 99203

== ENCOUNTER → 2023-12-22 07:33 | Outpatient (BNVA) | payer MEDICARE, OTHER, SELFPAY | PROVIDERS: PCP Internal Medicine; Visit Provider Student in an Organized Health Care Education/Training Program | DX: R76.8 Other specified abnormal immunological findings in serum (principal) | CPT/HCPCS: 99202 ==

== ENCOUNTER 2023-12-29 10:45 | Outpatient (AMB) | payer MEDICARE, OTHER, SELFPAY ==
--- NOTE | 2023-12-29 11:02 | MHC.OFFVIS ---
Intake Vital Signs 12/29/23 11:09 Height 5 ft 2 in Weight 114 lb BMI 20.8 Intake Visit Reasons: OV-Right shoulder pain-not improving Intake Note: Nida is a 68 year old right hand dominant female who presents today for a follow up of her right shoulder. She was last referred to PT, she reports increased pain with PT. Most recent PT note suggest possible Labral & RTC involvement. She is requesting to have an MRI. Allergies lisinopril Allergy (Unknown, Verified 12/29/23 11:10) Cough HPI OV-Right shoulder pain-not improving HPI Details Nida is a 68 year old right hand dominant female who presents today for a follow up of her right shoulder. She was last referred to PT, she reports increased pain with PT. Most recent PT note suggest possible Labral & RTC involvement. She is requesting to have an MRI. [facility] Medical History (Updated 12/29/23 @ 12:19 by Jose Miguel Rodriguez MD) Overactive bladder Osteoarthritis of both knees Osteoarthritis of left knee Anxiety Insomnia Benign essential hypertension Multinodular thyroid Vitamin D deficiency Osteoporosis Surgical History Hx of colonoscopy (~02/15/18) History of bunionectomy History of bilateral breast implants Family History Father Stroke Mother Hypertension Aneurysm Sister Breast cancer Brother No problems noted. Social History Housing: House Alcohol intake: current Alcohol intake frequency: holidays/special occasions only Alcohol type: wine Patient Tobacco Use Status: Former Tobacco user Years Smoked: 10 e-Cigarette/Vaping Use: Never Used Second Hand Smoke Exposure: Yes service: No Current occupational status: retired Cognitive needs: No Hearing needs: No Vision needs: Yes (glasses) Physical Exam Vital Signs: BMI result Body Mass Index 20.8 Extrem Other: + H/N Neg EC Pain with 25 deg ER on right Full ER on left Assessment & Plan Assessment & Plan (1) Capsulitis of right shoulder: Code(s): M77.8 - Other enthesopathies, not elsewhere classified Plan: RIght shoulder capsulitis with mild stiffening MRI discussed but won't change anything and I recommend injection (GH joint) , PT and NSAIDs ( mild as ibuprofen bothersome). She will follow up in 4-5 weeks for a telehealth visit. RX for PT and NSAID written Orders: Orders PT Evaluation and Treatment Today M77.8 - Other enthesopathies, not elsewhere classified Coding Level of Care Code Est Pt Level 4 (44815) Diagnoses Capsulitis of right shoulder M77.8
[2023-12-29 11:09] VITALS: BMI 20.8
== END 2023-12-29 12:07 | disposition home or self-care (01) ==
LOC: HO.HOS 10:45
PROVIDERS: PCP Internal Medicine; Visit Provider Orthopaedic Surgery
DX: M77.8 Other enthesopathies, not elsewhere classified (principal)
CPT/HCPCS: 99213

== ENCOUNTER → 2023-12-29 10:45 | Outpatient (BNVA) | payer MEDICARE, OTHER, SELFPAY | PROVIDERS: PCP Internal Medicine; Visit Provider Orthopaedic Surgery | DX: M77.8 Other enthesopathies, not elsewhere classified (principal) | CPT/HCPCS: 99212 ==

== ENCOUNTER 2024-01-22 10:10 | Outpatient (REF) | payer MEDICARE, OTHER, SELFPAY ==
--- NOTE | ~2024-01-22 | FL_ITS ---
EXAMINATION: XR FLUOROSCOPY UPPER GI WITH AIR CLINICAL INFORMATION: Dysphagia COMPARISON: None TECHNIQUE: Fluoroscopic air contrast upper GI examination was performed utilizing standard techniques with thin and thick barium and effervescent granules. Numerous spot images were obtained. FINDINGS: Lateral cine images of the oropharynx and hypopharynx demonstrate normal swallow mechanism with normal epiglottic inversion and soft palate elevation. No tracheal penetration, glottic or subglottic aspiration identified. No nasopharyngeal reflux present. There is a small anterior cervical web in the upper esophagus (RF 1-11, 49/122). There is mild cricopharyngeal achalasia present. Dual and single contrast images of the esophagus demonstrate normal caliber, contour, and mucosal pattern. No evidence of stricture, mass, or ulcerations identified. Esophageal peristalsis was normal. No evidence of hiatus hernia identified. Gastroesophageal reflux is seen in the distal esophagus. Dual contrast and single contrast images of the stomach demonstrated normal contour and mucosal pattern without evidence of mass, ulceration, or other abnormality. Contrast freely passed into the gastric antrum and duodenal bulb without delay. Single and air-contrast images of the duodenal bulb demonstrate no abnormality. The duodenal sweep has a normal appearance, course, and mucosal fold appearance. The imaged proximal jejunum has a normal fold pattern and caliber. FLUOROSCOPY TIME: 3 minutes 12 seconds Number of Spot Images: 11 Number of Cine: 11 DOSE AREA PRODUCT: 1286 uGy-m2 (microgray-meter squared) FL/FL barium swallow IMPRESSION: 1. 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 2. Mild cricopharyngeal achalasia. 3. Mild gastroesophageal reflux. This procedure was performed by Brian Coy PA-C, and supervised by Dr. Tom
== END 2024-01-22 10:11 | disposition home or self-care (01) ==
LOC: HO.XRAY 10:10
PROVIDERS: PCP Internal Medicine; Visit Provider Internal Medicine
DX: T17.908A Unspecified foreign body in respiratory tract, part unspecified causing other injury, initial encounter (principal); R05.8 Other specified cough
CPT/HCPCS: 74220

== ENCOUNTER → 2024-01-22 10:11 | Outpatient (BNV) | payer MEDICARE, OTHER, SELFPAY | PROVIDERS: PCP Internal Medicine; Visit Provider Physician Assistant Surgical | DX: R13.10 Dysphagia, unspecified (principal) | CPT/HCPCS: 74246 ==

== ENCOUNTER 2024-01-26 09:18 | Outpatient (AMB) | payer MEDICARE, OTHER, SELFPAY ==
--- NOTE | 2024-01-26 09:18 | MHC.OFFVIS ---
Intake Visit Reasons: tele- B/L shoulder follow up Intake Note: Nida is a 68 year old female who presents today for a Telephone appointment to follow up on her right shoulder adhesive capsulitis.GH joint injection administered 11/30/23 Allergies lisinopril Allergy (Unknown, Verified 01/26/24 09:19) Cough HPI HPI tele- B/L shoulder follow up: Details: Nida is a 68 year old female who presents today for a Telephone appointment to follow up on her right shoulder adhesive capsulitis.GH joint injection administered 11/30/23 [facility] Medical History Overactive bladder Osteoarthritis of both knees Osteoarthritis of left knee Anxiety Insomnia Benign essential hypertension Multinodular thyroid Vitamin D deficiency Osteoporosis Surgical History Hx of colonoscopy (~02/15/18) History of bunionectomy History of bilateral breast implants Family History Father Stroke Mother Hypertension Aneurysm Sister Breast cancer Brother No problems noted. Social History Housing: House Alcohol intake: current Alcohol intake frequency: holidays/special occasions only Alcohol type: wine Patient Tobacco Use Status: Former Tobacco user Years Smoked: 10 e-Cigarette/Vaping Use: Never Used Second Hand Smoke Exposure: Yes service: No Current occupational status: retired Cognitive needs: No Hearing needs: No Vision needs: Yes (glasses) Telehealth Telehealth Telehealth Platform: Telephone Location of provider rendering services: practice address Location of patient: address on file Patient Identification confirmed using: Name, : Yes Telehealth method: voice only Patient verbally consented to treatment: Yes Patient verbally consented to billing insurance company: Yes Patient informed of any privacy concerns related to visit: Yes Minutes spent on Phone/Video with Pt.: 15 Assessment & Plan Assessment & Plan (1) Capsulitis of right shoulder: Code(s): M77.8 - Other enthesopathies, not elsewhere classified Category: Medical Plan: I spoke with Nida and she is still having pain. I ordered an MRI and I refilled her Meloxicam. I recommend an intra-articular injection of right shoulder. This was ordered with Pain Management Orders: Orders MR shoulder RT wo con Today M77.8 - Other enthesopathies, not elsewhere classified Referrals Pain Management Referral M77.8 - Other enthesopathies, not elsewhere classified Medications: Changed From meloxicam 15 mg PO DAILY 30 tabs 2RF To meloxicam 15 mg PO BID 60 tabs 2RF Coding Level of Care Code Tele Est Pt Level 3 (73150) Diagnoses Capsulitis of right shoulder M77.8
== END 2024-01-26 10:30 | disposition home or self-care (01) ==
LOC: HO.HOS 09:18
PROVIDERS: PCP Internal Medicine; Visit Provider Orthopaedic Surgery
DX: M77.8 Other enthesopathies, not elsewhere classified (principal)
CPT/HCPCS: 99442

== ENCOUNTER → 2024-01-26 09:18 | Outpatient (BNVA) | payer MEDICARE, OTHER, SELFPAY | PROVIDERS: PCP Internal Medicine; Visit Provider Orthopaedic Surgery ==

== ENCOUNTER 2024-02-20 06:15 | Outpatient (REF) | payer MEDICARE, OTHER, SELFPAY ==
--- NOTE | ~2024-02-20 | FL_ITS ---
EXAMINATION: XR FLUOROSCOPY WITH IMAGES CLINICAL INFORMATION: Right shoulder pain. COMPARISON: Right shoulder radiographs 11/01/2023. TECHNIQUE: Fluoroscopy Supervised By: Dr. Houston. Fluoroscopy Time: 0.1 min. Cumulative Dose: 0.294 mGy. DAP: 0.51849 Gycm2. Images: 2. FINDINGS: Intraoperative fluoroscopy and spot films were performed during a procedure in the OR. Spinal needle is seen overlying the region of the right shoulder joint and contrast is seen injected into the joint. Please see Dr. Houston's report for complete details. FL/FL guidance in treatment room IMPRESSION: Intraoperative fluoroscopy and spot films were obtained. Please see Dr. Houston's report for complete details.
== END 2024-02-20 06:16 | disposition home or self-care (01) ==
LOC: CF 06:15
PROVIDERS: Visit Provider Anesthesiology
DX: M77.8 Other enthesopathies, not elsewhere classified (principal); M25.511 Pain in right shoulder
CPT/HCPCS: 20610; J2795; J3301; Q9967

== ENCOUNTER 2024-02-20 11:20 | Outpatient (AMB) | payer MEDICARE, OTHER, SELFPAY ==
--- NOTE | 2024-02-20 11:05 | MHC.OFFVIS ---
Vital Signs 02/20/24 11:59 02/20/24 12:00 Height 5 ft 2 in Weight 114 lb BMI 20.8 BP 130/80 130/80 Blood Pressure Location Lt brachial Lt brachial Position Sitting Sitting Respiration 18 18 Pulse 89 89 Pulse Source Pulse Oximeter Pulse Oximeter Pulse Oximetry (%) 99 99 Oxygen Delivery Method Room Air Room Air Comment Pre-Op Post-Op Intake Visit Reasons: Right theraputic glenohumeral injection Allergies lisinopril Allergy (Unknown, Verified 01/26/24 09:19) Cough PFSH Medical History Overactive bladder Osteoarthritis of both knees Osteoarthritis of left knee Anxiety Insomnia Benign essential hypertension Multinodular thyroid Vitamin D deficiency Osteoporosis Surgical History Hx of colonoscopy (~02/15/18) History of bunionectomy History of bilateral breast implants Family History Father Stroke Mother Hypertension Aneurysm Sister Breast cancer Brother No problems noted. Social History Housing: House Alcohol intake: current Alcohol intake frequency: holidays/special occasions only Alcohol type: wine Patient Tobacco Use Status: Former Tobacco user Years Smoked: 10 e-Cigarette/Vaping Use: Never Used Second Hand Smoke Exposure: Yes service: No Current occupational status: retired Cognitive needs: No Hearing needs: No Vision needs: Yes (glasses) Physical Exam Vital Signs: Last Vital Signs Pulse 89 02/20/24 12:00 Resp 18 02/20/24 12:00 BP 130/80 02/20/24 12:00 Pulse Ox 99 02/20/24 12:00 Oxygen Delivery Method Room Air 02/20/24 12:00 BMI result Body Mass Index 20.8 Assessment & Plan Assessment & Plan (1) Capsulitis of right shoulder: Code(s): M77.8 - Other enthesopathies, not elsewhere classified Category: Medical Plan: Intra-articular right shoulder (glenohumeral) joint steroid injection Informed consent was explained to the patient. All questions were explained and answered. The patient was taken inside of the operating room where she was positioned prone on the operating table. Time-out was performed delineating patient's name and date of , correct site, side, the nature of the procedure, patient's allergy, All operating room staff and the patient were participating in OR time-out procedure. the patient's posterior right shoulder and upper back back was prepped with ChloraPrep and draped with sterile utility draped. C-arm was brought over the operating field and sq picture of glenohumeral joint was demonstrated on the screen. 22 gauge 3-1/2 inch Wittaker needle was inserted through the skin after skin wheal was raised with lidocaine 2%. The needle was directed to the glenohumeral joint on the right . When the tip of the needle entered the capsule of the joint injection of the contrast was performed demonstrating intra-articular spread of the contrast. After that injection of the mixture of ropivacaine 0.5% 4 cc mixed with Kenalog 40 mg was performed into the joint. Upon completion of the injection the needle was removed and sterile Band-Aid was applied. The patient tolerated procedure well. Orders: Orders FL guidance in treatment room Today M25.511 - Pain in right shoulder Coding Level of Care Code Procedure Only Diagnoses Capsulitis of right shoulder M77.8
[2024-02-20 11:59] VITALS: BP 130/80; PULSE 89; RESP 18; O2SAT 99; BMI 20.8
[2024-02-20 12:00] VITALS: BP 130/80; PULSE 89; RESP 18; O2SAT 99
== END 2024-02-20 11:53 | disposition home or self-care (01) ==
LOC: HO.PMCPRC 11:20
PROVIDERS: PCP Internal Medicine; Visit Provider Anesthesiology
DX: M77.8 Other enthesopathies, not elsewhere classified (principal); M25.511 Pain in right shoulder
CPT/HCPCS: 20610; 77002

== ENCOUNTER 2024-03-18 10:03 | Outpatient (AMB) | payer MEDICARE, OTHER, SELFPAY ==
--- NOTE | 2024-03-18 10:10 | MHC.OFFVIS ---
Vital Signs 03/18/24 10:15 Height 5 ft 2 in Weight 108 lb 6 oz BMI 19.8 BP 140/88 H Blood Pressure Location Lt brachial Position Sitting Respiration 16 Pulse 84 Pulse Source Pulse Oximeter Pulse Oximetry (%) 100 Oxygen Delivery Method Room Air Intake Visit Reasons: s/p right glenohumeral inj Intake Note: Patient comes in for post-op appointment. Reports pain 4/10. Allergies lisinopril Allergy (Unknown, Verified 03/18/24 10:14) Cough HPI Comments Details: Nida is a very pleasant 68 years old female who was referred to my office by Dr. Rodriguez with complains on pain in the right shoulder and diagnosis of glenohumeral joint capsulitis. Dr. Rodriguez's request was to perform right intra-articular glenohumeral joint injection. The patient reported that before the procedure the pain was ? 10/10 and more ?. She reported that this pain started 5 years ago. She has no inciting events but thinks that maybe heavy lifting made impact on her shoulder. She reports pain and anterior and posterior surface of the right shoulder and popping sensation in the left shoulder. She can not sleep normally because of her pain can not do activities of daily living she can not take care for herself but she can not function normally. She is retired individual. She tried to obtain help from cold and heat application to her shoulder she reports no improvement. She reports in terms of tissue damage her pain is column throbbing, stabbing, sharp, hot burning, sore, hurting, exhausting sensation. She was taking ibuprofen 800 mg before the injection. She had x-ray of the shoulder available in the chart. She had 3 sessions of physical therapy to address the pain in the shoulder and she reported pain aggravation on physical therapy application. She received by me intra-articular right shoulder injection. She reported today that her pain is 4/10. She reports that injection helped her pain significantly for the past 1 month. Her past medical history significant for hypertension. He is taking amlodipine for this condition. She had bunion surgery 15 years ago. She denies smoking cigarettes denies drinking alcohol drinks coffee as caffeinated beverages and denies recreational drugs. [facility] Medical History Overactive bladder Osteoarthritis of both knees Osteoarthritis of left knee Anxiety Insomnia Benign essential hypertension Multinodular thyroid Vitamin D deficiency Osteoporosis Surgical History Hx of colonoscopy (~02/15/18) History of bunionectomy History of bilateral breast implants Family History Father Stroke Mother Hypertension Aneurysm Sister Breast cancer Brother No problems noted. Social History Housing: House Alcohol intake: current Alcohol intake frequency: holidays/special occasions only Alcohol type: wine Patient Tobacco Use Status: Former Tobacco user Years Smoked: 10 e-Cigarette/Vaping Use: Never Used Second Hand Smoke Exposure: Yes service: No Current occupational status: retired Cognitive needs: No Hearing needs: No Vision needs: Yes (glasses) Review of Systems Const Reports no additional complaints Card Reports no additional complaints Resp Reports no additional complaints GI Reports no additional complaints Reports no additional complaints Musc Reports as per HPI Neuro Reports no additional complaints Psych Reports no additional complaints Physical Exam Vital Signs: Last Vital Signs Pulse 84 03/18/24 10:15 Resp 16 03/18/24 10:15 BP 140/88 H 03/18/24 10:15 Pulse Ox 100 03/18/24 10:15 Oxygen Delivery Method Room Air 03/18/24 10:15 BMI result Body Mass Index 19.8 Const General: cooperative, healthy appearing, no acute distress and well groomed Orientation/consciousness: oriented to person and oriented to place HEENT Head: Yes normal to inspection, Yes normocephalic and Yes atraumatic Eyes General: appearance normal, both eyes and all related structures Alignment and Position: alignment normal Conjunctivae: conjunctivae normal EOM: EOMs intact bilaterally Neck Neck: Yes normal visual inspection and Yes trachea midline Resp Other: No rerpiratory distress Effort & Inspection: normal respiratory effort and able to speak in complete sentences Back/Spine/Pelvis Cervical Spine: normal cervical lordosis and cervical ROM normal Skin General skin exam: no rashes or lesions noted Neuro General: oriented to person, oriented to place and gait normal Extrem Other: Full passive range of motion Negative empty can Positive Jensen Positive Neer Assessment & Plan Assessment & Plan (1) Capsulitis of right shoulder: Code(s): M77.8 - Other enthesopathies, not elsewhere classified Category: Medical Plan: Right shoulder capsulitis with mild stiffening by Dr. Rodriguez diagnosis. Excellent results of the intra-articular injection into the right shoulder glenohumeral joint. Patient reports improved mobility activities of daily living social interaction. Limitations of the steroid injections was explained to the patient. Injection of the steroids can be repeated at the same spot 3 months apart but preferably it needs to be done as rare as possible. She is recommended to give us a call when her pain will come back and we will repeat the injection. Coding Level of Care Code New Pt Level 3 (62513) Diagnoses Capsulitis of right shoulder M77.8
[2024-03-18 10:15] VITALS: BP 140/88; PULSE 84; RESP 16; O2SAT 100; BMI 19.8
== END 2024-03-18 11:53 | disposition home or self-care (01) ==
PROVIDERS: PCP Internal Medicine; Visit Provider Anesthesiology
DX: M77.8 Other enthesopathies, not elsewhere classified (principal)
CPT/HCPCS: 99213

== ENCOUNTER → 2024-03-18 10:03 | Outpatient (BNVA) | payer MEDICARE, OTHER, SELFPAY | PROVIDERS: PCP Internal Medicine; Visit Provider Anesthesiology | DX: M77.8 Other enthesopathies, not elsewhere classified (principal) | CPT/HCPCS: 99212 ==

== ENCOUNTER 2024-12-25 16:22 | Outpatient (AMB) | payer MEDICARE, OTHER, SELFPAY ==
[2024-12-25 16:33] VITALS: BP 128/82; PULSE 84; O2SAT 99; BMI 21.2
--- NOTE | 2024-12-25 16:33 | A.OFFVIS_ITS ---
Intake Vital Signs 12/25/24 16:33 Height 5 ft 2 in Weight 116 lb 2 oz BMI 21.2 BP 128/82 Blood Pressure Location Lt brachial Position Sitting Pulse 84 Pulse Source Pulse Oximeter Pulse Oximetry (%) 99 Oxygen Delivery Method Room Air Intake Visit Reasons: AWV Director Of Field Coordination Required: No Accompanied by: Self / Same As Patient Allergies lisinopril Allergy (Unknown, Verified 12/25/24 17:10) Cough Medication List - Last Reconciled 12/25/24 by Spencer Pak MD alprazolam 0.5 mg PO DAILY PRN 30 days amlodipine 5 mg PO DAILY zolpidem 5 mg PO BEDTIME PRN 30 days Do you need a note to return to daycare/school/sports/work: No HPI AWV HPI Details Patient comes in today for her Medicare Annual Wellness Exam AND follow-up visit States that she feels okay but is starting to experience symptoms of spring allergies and would like to get started back on Fluticasone nasal spray again to help control her allergy symptoms She is also starting to experience increased pain in her right shoulder again lately States that her shoulder pain improved a lot with the injection that she received from Dr. Houston last year and that the relief lasted for a while until recently and she plans to reach out again to Dr. Houston's office to schedule a follow up appt and possibly get an injection again FAREED She denies any headaches or dizziness Denies any chest pains, no shortness of breath No nausea/vomiting, no abdominal pain No change in bowel habits noted She is up-to-date with her colon cancer screening and is not due for repeat colonoscopy until 2027 She just had her annual mammogram done a couple of months ago in September 2024 She no longer has to keep up with her yearly gynecology exam and Pap smear due to her age She is now due for repeat bone density for follow-up of her osteoporosis ----- [place] of care was reviewed and updated today Patient does not have a healthcare proxy in place; she was provided with HCP and MOLST forms as well as a DNR/comfort measures form and is instructed to complete these as soon as possible IPPE/AWV: c/o of Annual Wellness Visit, initial visit. Medical / Social History Reviewed Past Medical History Yes . [place] of Care / Care Team list updated Yes . Surgical/Hospitalization History Yes . Current Medications (including OTC and supplements) Yes . Family History Yes . Tobacco Control form Yes . AUDIT-C (Alcohol use) form Yes . Illicit drug use in Social History Yes . Current diagnosis of depression? No Appropriate PHQ2/PHQ9 completed Yes . Data entered by Business Technology Professor and reviewed by provider Home Safety Throw rugs? No Grab bars? No Raised toilet seats? No Working smoke detectors? Yes Working carbon monoxide detectors? Yes Data entered by Business Technology Professor and reviewed by provider Activities of Daily Living (ADLs) Difficulty bathing or showering? No Difficulty dressing? No Difficulty using the toilet? No Difficulty getting in and out of bed? No Difficulty walking? No Receives help from another person with any of the above tasks? No Instrumental Activities of Daily Living (IADLs) Uses the telephone without help Gets to places out of walking distance without help Goes shopping for groceries without help Prepares own meals without help Does own minor home maintenance without help Does own laundry without help Does own housework without help Manages own money without help Currently takes medications? Yes Takes medication without help End-of-Life Planning Discussed advance directive Yes Advance directive on file Discussed wishes expressed in advance directive agreed to following patient's wishes Fall Risk: Fall History Have you had any falls with injury in the past year? No . Have you had two or more falls in the past year? No . Fall Risk Assessment: No falls in the past year . HRA filled out by the patient, reviewed by Provider and scanned. [facility] Medical History Overactive bladder Osteoarthritis of both knees Osteoarthritis of left knee Anxiety Insomnia Benign essential hypertension Multinodular thyroid Vitamin D deficiency Osteoporosis Surgical History Hx of colonoscopy (~02/15/18) History of bunionectomy History of bilateral breast implants Family History Father Stroke Mother Hypertension Aneurysm Sister Breast cancer Brother No problems noted. Social History Housing: House Alcohol intake: current Alcohol intake frequency: holidays/special occasions only Alcohol type: wine Patient Tobacco Use Status: Former Tobacco user Years Smoked: 10 e-Cigarette/Vaping Use: Never Used Second Hand Smoke Exposure: Yes service: No Current occupational status: retired Cognitive needs: No Hearing needs: No Vision needs: Yes (glasses) Questionnaire Medicare Wellness Checkup [age] What gender do you identify with?: female During the past 4 weeks, how much have you been bothered by emotional problems such as feeling anxious, depressed, irritable, sad or downhearted, and blue?: not at all During the past 4 weeks, has your physical & emotional health limited your social activities with family, friends, neighbors, or groups?: not at all During the past 4 weeks, how much bodily pain have you generally had?: mild pain During the past 4 weeks, was someone available to help you if you needed & wanted help?: no, not at all During the past 4 weeks, what was the hardest physical activity you could do for at least 2 minutes?: moderate Can you get to places out of walking distance without help? (For eg., can you travel alone on buses, taxis or drive your car?): Yes Can you go shopping for groceries or clothes without someone's help?: Yes Can you prepare your own meals?: Yes Can you do your housework without help?: Yes Because of any health problems, do you need the help of another person with your personal care needs such as eating, bathing, dressing or getting around the house?: No Can you handle your own money without help?: Yes During the past 4 weeks, how would you rate your health in general?: good During the past 4 weeks how have things been going for you?: pretty well Are you having difficulties driving your car?: no Do you always fasten your seat belt when you are in a car?: yes, usually During past 4 weeks, have you been bothered by the following: never: Falling or dizzy when standing up, Sexual problems?, Trouble eating well?, Teeth or denture problems?, Problems using the telephone? and Tiredness or fatigue? Have you fallen 2 or more times in the past year?: No Are you afraid of falling?: No Are you a smoker?: no During the past 4 weeks, how many drinks of wine, beer, or other alcoholic beverages did you have?: 1 drink or less per week Do you exercise for about 20 minutes 3 or more times a week?: yes, most of the time How often do you have trouble taking medicines the way you have been told to take them?: I always take medicine as prescribed How confident are you that you can control & manage most of your health problems?: very confident What is your race?: or origin or descent Mini Mental State Exam (MMSE) Orientation What is the (year) (season) (date) (day) (month)?: year, season, date, day and month Where are we (state) (county) (town or city) (hospital) (floor)?: state, county, town or city, hospital/clinic and floor Score Score: 10 Activity of Daily Living Bathing - sponge bath, tub bath or shower: receives no assistance (gets in/out by self, if usual bathing means Dressing - getting clothes from closets & drawers, including inner/outer garments & fasteners.: gets clothes & gets completely dressed without help Toileting - going to the 'toilet room' for urine/bowel elimination & cleaning self/arranging clothes: goes to toilet room, cleans self, arranges clothes without help Transfer: moves in & out of bed and chair without help (may use support object) Continence: controls urination/bowel movements completely by self Feeding: feeds self without help Total Score: 0 Information obtained from: patient Using telephone: independent Traveling: independent Shopping: independent Preparing meals: independent Housework: independent Taking medicine: independent Managing money: independent PHQ-9 Over the last 2 weeks, how often have you been bothered by any of the following problems? 1. Little interest or pleasure in doing things: not at all 2. Feeling down, depressed, or hopeless: not at all 3. Trouble falling or staying asleep, or sleeping too much: not at all 4. Feeling tired or having little energy: not at all 5. Poor appetite or overeating: not at all 6. Feeling bad about yourself - or that you are a failure or have let yourself or your family down: not at all 7. Trouble concentrating on things, such as reading the newspaper or watching television: not at all 8. Moving or speaking so slowly that other people could have noticed. Or the opposite - being so fidgety or restless that you have been moving around a lot more than usual: not at all 9. Thoughts that you would be better off or of hurting yourself in some way: not at all Total score: 0 Depression Screening Interpretation: Negative Depression Screening Done: Yes 90887 - PHQ-9 Billing: Yes Source: Developed by Drs. Matias Couch, Janey Nails, Jose Alfredo Hawk and colleagues, with an educational wilfred from [employer]. PHQ-2/PHQ-9 PHQ-2 Over the last 2 weeks, how often have you been bothered by any of the following problems? 1. Little interest or pleasure in doing things: not at all 2. Feeling down, depressed, or hopeless: not at all Total score: 0 If score is 3 or greater, continue 3. Trouble falling or staying asleep, or sleeping too much: not at all 4. Feeling tired or having little energy: not at all 5. Poor appetite or overeating: not at all 6. Feeling bad about yourself - or that you are a failure or have let yourself or your family down: not at all 7. Trouble concentrating on things, such as reading the newspaper or watching television: not at all 8. Moving or speaking so slowly that other people could have noticed. Or the opposite - being so fidgety or restless that you have been moving around a lot more than usual: not at all 9. Thoughts that you would be better off or of hurting yourself in some way: not at all Total score: 0 0-4 None-Minimal, 5-9 Mild, 10-14 Moderate, 15-19 Moderately Severe, 20-27 Severe Source: Developed by Drs. Matias Couch, Janey Nails, Jose Alfredo Hawk and colleagues, with an educational wilfred from [employer]. Thrive Questionnaire Date Thrive assessed: 12/25/24 I am a: Patient What is your living situation today?: I have a steady place to live Within the past 12 months, did the food you bought not last and you didn't have the money to get more?: Never true Within the past 12 months, did you worry whether your food would run out before you got money to buy more?: Never true Do you have trouble paying for medicines?: No Do you have trouble getting transportation to medical appointments?: No Do you have trouble paying your heating and electricity bill?: No Do you have trouble taking care of your child, family member or friend?: No Do you have trouble with day-to-day activities such as bathing, preparing meals, shopping, managing finances, etc.?: No Are you currently unemployed and looking for a job?: No Are you interested in more education?: No Please select the resources that you would like help with: None Currently or been in a relationship where the following occur: No concerns reported THRIVE Score: 0 CASEY-7 AMB Questionnaire CASEY-7 Date CASEY - 7 assessed: 12/25/24 Feeling nervous, anxious, or on edge: 0 = Not at all Not being able to stop or control worryin = Not at all Worrying too much about different things: 0 = Not at all Trouble relaxin = Not at all Being so restless that it is hard to sit still: 0 = Not at all Becoming easily annoyed or irritable: 0 = Not at all Feeling afraid as if something awful might happen: 0 = Not at all Total CASEY-7 score (0-4 normal; 5-9 mild; 10-14 moderate; 15-21 severe): 0 Source: Developed by Drs. Matias Couch, Janey Nails, Jose Alfredo Hawk and colleagues, with an educational wilfred from [employer]. Review of Systems Const Denies chills, Denies fatigue, Denies fever(s) and Denies headache(s) ENT Denies dysphagia, Denies dizziness, Denies otalgia, Denies headache(s), Denies neck pain, Denies odynophagia and Denies sore throat Card Denies chest pain, Denies palpitations and Denies dyspnea Resp Denies chest congestion, Denies cough and Denies dyspnea GI Denies abdominal pain, Denies constipation, Denies dysphagia, Denies heartburn, Denies diarrhea, Denies nausea, Denies odynophagia and Denies vomiting Denies difficulty voiding, Denies nocturia, Denies dysuria and Denies urinary urgency Musc Denies back pain, Reports arthralgias (right shoulder) and Denies neck pain Skin/Breast Denies rash Neuro Denies dizziness and Denies headache(s) Endo Denies fatigue and Denies palpitations Physical Exam Vital Signs: Last Vital Signs Pulse 84 12/25/24 16:33 BP 128/82 12/25/24 16:33 Pulse Ox 99 12/25/24 16:33 Oxygen Delivery Method Room Air 12/25/24 16:33 BMI result Body Mass Index 21.2 IPPE/AWV: Balance Romberg Yes . Tandem walk Yes . Walk and Turn Yes . Rise from sit to stand Yes . Vision Corrective lens No Vision screen pass Hearing Whisper test pass . Urinary incont. no. EKG Not clinically necessary. Const General: no acute distress and alert HEENT Ears: TM's normal bilaterally and EAC's normal Throat: Yes posterior oropharynx normal and Yes tonsils normal (no TP congestion) Neck Neck: Yes no lymphadenopathy and Yes supple Resp Auscultation: clear to auscultation bilaterally, no rales and no wheezes Cardio Rate: regular rate Rhythm: regular rhythm Heart sounds: no murmurs GI Palpation (GI): Soft to palpation, nontender and No hepatosplenomegaly present Skin General skin exam: no rashes or lesions noted Extrem General: Yes no clubbing, cyanosis or edema Assessment & Plan Assessment & Plan (1) Medicare annual wellness visit, initial: Code(s): Z00.00 - Encounter for general adult medical examination without abnormal findings Plan: HRA form discussed and completed with patient; form will be scanned into patient's chart SPENSER updated Patient was also provided today with HCP form, MOLST form as well as a DNR form to bring home and fill out with her family and she will bring these back for completion and to be scanned into her chart as part of her medical record FAREED Will send patient for labs to complete her annual evaluation (2) Benign essential hypertension: Code(s): I10 - Essential (primary) hypertension Plan: Reinforced low sodium diet - goal is systolic BP of at least 120 to 130 mm or less Continue Amlodipine 5 mg QD She is reminded to continue monitoring her BP regularly (3) Osteoporosis: Code(s): M81.0 - Age-related osteoporosis without current pathological fracture Qualifiers: Osteoporosis type: unspecified Presence of current pathological fracture: without current pathological fracture Qualified Code(s): M81.0 - Age- related osteoporosis without current pathological fracture Plan: Fall precautions reinforced Her most recent BMD done in November 2022 revealed (+) osteoporosis with the lowest T-score value of -2.8 in the lumbar spine - this is mostly unchanged from her previous BMD in 2020 She was seen by endocrinology a couple of years ago but she was not interested in taking pharmacologic therapy at the time and wanted to wait and see how her next bone density comes out - as her last BMD was mostly unchanged, she remains uninterested in pharmacotherapy for her osteoporosis and wishes to continue with her regular exercise regimen and daily vitamin D and calcium supplementation for now Will now send her for repeat BMD for follow up of her osteoporosis (4) Primary osteoarthritis, right shoulder: Code(s): M19.011 - Primary osteoarthritis, right shoulder Plan: X-rays of the shoulder done last year revealed (+) degenerative changes of the glenohumeral and acromioclavicular joints with no acute bony abnormalities noted Continue Ibuprofen to 800 mg TID with food PRN Patient has been advised that if her shoulder pain persists or gets worse, we will consider referring her to orthopedics for further management (5) Multinodular thyroid: Code(s): E04.2 - Nontoxic multinodular goiter Plan: Her thyroid US done last year (November 2023) revealed (+) 0.4 cm right mid pole TR 5 nodule that is taller than wide, very hypoechoic and demonstrates irregular margins. Recommend follow-up ultrasound in one year. There are additional subcentimeter TR 3 and 4 nodules that do not meet size criteria for further evaluation No suspicious extrathyroidal lymph nodes are noted Will now send her for repeat/follow up thyroid US (6) Vitamin D deficiency: Code(s): E55.9 - Vitamin D deficiency, unspecified Plan: Continue OTC Vitamin D3 2000 units (50 mcg) QD (7) Overactive bladder: Code(s): N32.81 - Overactive bladder Plan: Patient was started on a trial of Myrbetriq last year, which she states did not help and she currently does not wish to take any additional medicines at this time (8) JANE positive: Code(s): R76.8 - Other specified abnormal immunological findings in serum Plan: She has been advised that her JANE screen came back positive but this is non- specific and does not necessarily mean that she has lupus or some other inflammatory joint disease as she currently has no other symptoms suggestive of this She was sent for a double-stranded anti-DNA testing for further evaluation last year, which came back negative - no further testing is indicated at this time (9) Anxiety: Code(s): F41.9 - Anxiety disorder, unspecified Plan: Continue Alprazolam 0.5 mg QD PRN Plan To return in 1 year for her next annual exam Orders: Orders Complete Blood Count Auto Diff 12/25/24 D64.9 - Anemia, unspecified, Z00.00 - Encounter for general adult medical examination without abnormal findings Lipid Panel 12/25/24 E78.00 - Pure hypercholesterolemia, unspecified, Z00.00 - Encounter for general adult medical examination without abnormal findings TSH reflex Free T4 12/25/24 E78.00 - Pure hypercholesterolemia, unspecified, Z00.00 - Encounter for general adult medical examination without abnormal findings UA CC w/rflx Micro + Cult 12/25/24 R30.0 - Dysuria, Z00.00 - Encounter for general adult medical examination without abnormal findings Collagen Crosslinks NTX 12/25/24 M81.0 - Age-related osteoporosis without current pathological fracture, Z00.00 - Encounter for general adult medical examination without abnormal findings US thyroid Today E04.2 - Nontoxic multinodular goiter XR DEXA axial skeleton 12/25/24 M81.0 - Age-related osteoporosis without current pathological fracture, Z78.0 - Asymptomatic menopausal state Comprehensive [place]. Panel Fast 12/25/24 E78.00 - Pure hypercholesterolemia, unspecified, Z00.00 - Encounter for general adult medical examination without abnormal findings Vitamin D 25-OH Total 12/25/24 E55.9 - Vitamin D deficiency, unspecified, Z00.00 - Encounter for general adult medical examination without abnormal findings Medications: New fluticasone propionate 50 mcg/actuation administer into each nostril 2 sprays intranasal DAILY 30 days PRN 16 grams 5RF allergy symptoms Quality Reporting (2019) Depression/Bipolar (159/160/161/177) PHQ-9: Total score: 0 Coding Level of Care Code Medicare First (G0438) Est Pt Level 4 (49063) Diagnoses Medicare annual wellness visit, initial Z00.00 Benign essential hypertension I10 Osteoporosis without current pathological fracture, unspecified osteoporosis type M81.0 Osteoporosis type: unspecified Presence of current pathological fracture: without current pathological fr acture Primary osteoarthritis, right shoulder M19.011 Multinodular thyroid E04.2 Vitamin D deficiency E55.9 Overactive bladder N32.81 JANE positive R76.8 Anxiety F41.9 CPT Codes Advance Care Planning - Time spent: 1-15 minutes, not on file ([id number]) Additional Codes PHQ-9 - 25063 - PHQ-9 Billing: Yes ([id number]) Advance Care Planning Advance Care Planning discussion: Exists, not on file (HCP, MOLST and DNR forms were provided to patient today to take home and fill out - will bring back forms once filled out for documentation ) Date of discussion: 12/25/24 Who was present: patient, PCP Forms completed: Health Care Proxy, MOLST and Comfort care/DNR Time spent: 1-15 minutes, not on file
--- OUTSIDE RECORDS SUMMARY | 2024-12-25 18:04 | XMS_ITS | Encounter Summary ---
Author Organization [employer] Address [address] [place] [address] Care Team Providers Care Fiction And Nonfiction Writer Prose Name Role Phone Unavailable Primary Care Provider Unavailabl e Encounter Details Date Type Department Care Team (Latest Contact Info) Description 10/23/2019 Abstract [facility] CONVERSIONS Dental, Provider, DDS Social History Tobacco Use Types Packs/Day Years Used Date Smoking Tobacco: Never Assessed Comments Unknown Sex and Gender Information Value Date Recorded Sex Assigned at Female 07/25/2022 10:34 AM EDT Legal Sex Female 10:34 AM EDT Gender Identity Female 07/25/2022 10:34 AM EDT Sexual Orientation Straight 07/25/2022 10 :34 AM EDT documented as of this encounter Plan of Treatment Not on file documented as of this encounter Visit Diagnoses Not on filedocumented in this encounter
--- OUTSIDE RECORDS SUMMARY | 2024-12-25 18:04 | XMS_ITS | Clinical Summary ---
Author Organization [employer] Address [address] [facility] 7t [place] [address] Care Team Providers Care Maintenance Groundskeeper Name Role Phone Unavailable Primary Care Provider Unavailabl e Allergies No known active allergies Medications amLODIPine (Norvasc) 5 MG tablet Take 5 mg by mouth in the morning. 08/12/2022 Active zolpidem (Ambien) 5 MG tablet TAKE 1 TO 1 & 1/2 TABLETS BY MOUTH AT BEDTIME NEEDED FOR 30 DAYS (INSURANCE LIMITS 1 TAB DAILY) 06/17/2022 Active ALPRAZolam (Xanax) 0.5 MG tablet TAKE 1/2 TO 1 TABLET ORALLY ONCE A DAY NEEDED 05/10/2022 Active Social History Tobacco Use Types Packs/Day Years Used Date Smoking Tobacco: Never Smokeless Tobacco: Never Tobacco Cessation:Counseling Given: Not Answered Comments Unknown Sex and Gender Information Value Date Recorded Sex Assigned at Female 07/25/2022 10:34 AM EDT Legal Sex Female 10:34 AM EDT Gender Identity Female 07/25/2022 10:34 AM EDT Sexual Orientation Straight 07/25/2022 10 :34 AM EDT Last Filed Vital Signs Vital Sign Reading Time Taken Comments Blood Pressure 123/73 06/06/2023 4:13 PM EDT Pulse 80 06/06/2023 4:13 PM EDT Temperature - - Respiratory Rate - - Oxygen Saturation - - Inhaled Oxygen Concentration - - Weight - - Height - - Body Mass Index - - Plan of Treatment Health Maintenance Due Date Last Done Comments CT Colonography 1955 Colonoscopy 1955 Colorectal Cancer Screening 1955 Dental X-Ray: Bitewings 1955 Dental X-Ray: Full Mouth 1955 Depression Screening 1955 FIT DNA/Cologuard 1955 FIT 1955 FOBT 1955 SDOH Screening 1955 Sigmoidoscopy 1955 Alcohol/Substance Use Screening 1967 Hepatitis C Screening 1973 Mammogram 1995 Pneumococcal Vaccine: 50+ Years (2 of 2 - PCV) 08/28/2019 08/28/2018 Dental Oral Exam 12/06/2023 06/06/2023, 11/21/2022 Dental Prophylaxis 12/06/2023 06/06/2023, 09/21/2022 COVID-19 Vaccine ( season) 2024 06/06/2022, 06/22/2021, 12/27/2020, Additional history exists Influenza Vaccine (#1) 2024 , 06/06/2022, 07/07/2021 Tobacco Screening 06/06/2024 06/06/2023 DTaP/Tdap/Td Vaccines (2 - Td or Tdap) 12/12/2026 12/12/2016 RSV Patients and Patients Aged 60 years or older (1 - 1-dose 75+ series) 2030 Zoster Vaccines Completed 01/24/2022, 11/27/2021 HIB Vaccines Aged Out No longer eligi ble based on patient's age to complete this topic HPV Vaccines Aged Out No longer eligi ble based on patient's age to complete this topic Hepatitis A Vaccines Aged Out No long er eligible based on patient's age to complete this topic Hepatitis B Vaccines Aged Out No long er eligible based on patient's age to complete this topic IPV Vaccines Aged Out No longer eligi ble based on patient's age to complete this topic Meningococcal Vaccine Aged Out No nawaf luis alberto eligible based on patient's age to complete this topic RSV under 20 months Aged Out No longe r eligible based on patient's age to complete this topic Rotavirus Vaccines Aged Out No longer eligible based on patient's age to complete this topic Procedures Procedure Name Priority Date/Time Associated Diagnosis Comments PROPHYLAXIS - ADULT Routine 06/06/2023 4:00 PM EDT PERIODIC ORAL EVALUATION - ESTABLISHED PATIENT Routine 06/06/2023 4:00 PM EDT from Last 3 Months or Most Recently Relevant to Health Maintenance Insurance DENTAL - METLIFE DENTAL - METLIFE
--- OUTSIDE RECORDS SUMMARY | 2024-12-25 18:04 | XMS_ITS | Data Portability ---
Author Organization [facility]AMIL Dominguez rizwan [facility] Address [address] [place] [phone] Assessment No assessment recorded. Plan of Treatment Reminders Order Date Submit Date Provider Last Modified By Organization Details Last Modified Time Details Appointments None record ed. Lab None record ed. Referral None record ed. Procedures None record ed. Surgeries None record ed. Imaging None record ed. Medication Orders None record ed. Patient TargetsNo targets recorded. Patient Instructions Encounter Date Encounter Id Patient Instructions Last Modified By Organization Details Last Modified Time 06/19/2024 [id number] earwax blockage: care instructions [email or web address] Not available 06/19/2024 13:33:25 Reason for Referral None Reported. Problems Name Problem SNOMED Code Status Onset Date Resolution Date Notes Provider Name and Address Organization Details Recorded Time Hypertensive disorder 35303043 Active Marjan Pacheco liset PA - [facility] 13:06:03 Insomnia 143075989 Active Marjan Pacheco liset PA - [facility] 13:06:16 Problem Notes None recorded. Procedures Surgical History Date Name Laterality Status Provider Name and Address Organization Details Recorded Time Cerumen Removal by Irrigation completed Marjan Myerses PA - [facility] 06/19/2024 13:37:03 excision of bunion completed Marjan Myerses PA - [facility] 06/19/2024 13:07:29 Imaging Results None recorded. Procedure Notes None recorded. Medical Equipment None Reported. Allergies No known drug allergies Medications Name Sig Start Date Stop Date Status Note LastModified by Organization Details LastModified Time ibuprofen 800 mg tablet TAKE 1 TABLET BY MOUTH EVERY 8 HOURS WITH FOOD ONLY NEEDED FOR PAIN FOR 30 DAYS 06/19 completed Not Available Not Available Not Available meloxicam 15 mg tablet TAKE 1 TABLET BY MOUTH EVERY DAY 06/19 completed Not Available Not Available Not Available amlodipine 5 mg tablet TAKE ONE TABLET BY MOUTH EVERYDAY active Not Available Not Available No t Available alprazolam 0.5 mg tablet TAKE 1/2-1 TABLET ORALLY ONCE DAILY NEEDED FOR ANXIETY FOR 30 DAYS active Not Available Not Available No t Available zolpidem 5 mg tablet TAKE 1 TAB (5 MG) ORALLY BEDTIME NEEDED FOR INSOMNIA FOR 30 DAYS active Not Available Not Available No t Available ibuprofen 600 mg tablet TAKE 1 TABLET BY MOUTH EVERY 8 HOURS NEEDED FOR PAIN 06/19 completed Not Available Not Available Not Available Myrbetriq 25 mg tablet,exte nded release TAKE 1 TABLET BY MOUTH EVERY DAY active Not Available Not Available No t Available Vitals Date Recorded Body height Body mass index (BMI) Body weight Oxygen saturation Oxygen saturation in Arterial blood by Pulse oximetry Pain severity - 0-10 verbal numeric rating [Score] - Reported Heart rate Respiratory rate Body temperature Systolic blood pressure Diastolic blood pressure Provider Name and Address Organization Details Last Updated DateTime 157.48 cm 20.1 kg/m2 48856.1 6 g 100 % 100 % 0 66 /min 16 /min 98.5 [degF] 143 mm[Hg] 76 mm[Hg] Marjan Pacheco PA - [facility] 13:03:54 Social History Question Answer Notes LastModified by Crackleizat ion Details LastModified Time Tobacco Smoking Status Never Smoker Marjan hutchins PA - [facility] 06/19/2024 13:06:49 What Is Your Level Of Alcohol Consumption? None Information not available 06/19/2024 Are You Currently Employed? No [email or web address] Information not available 06/19/2024 Have You Had A Flu Shot This Season? No [email or web address] Information not available 06/19/2024 If No, Would You Like A Flu Shot Today? No Information not available 06/19/2024 What Is Your Relationship Status? [email or web address] Information not available 06/19/2024 Do You Use Any Illicit Or Recreational Drugs? No [email or web address] Information not available 06/19/2024 Have You Recently Traveled Abroad? No [email or web address] Information not available 06/19/2024 Do You Or Have You Ever Used Any Other Forms Of Tobacco Or Nicotine? No [email or web address] Information not available 06/19/2024 Sex: Unknown Functional Status None recorded. Mental Status None recorded. Family History Relationship Description Onset Age of this Age Resolved Age Notes LastModified by Organization Details LastModified Time Father No current problems or disability Not available 05/27 13:06:22 Mother No current problems or disability [email or web address] Not available 05/27 13:06:22 Medical History No medical history recorded. Gynecological History Statement/Question Response Is there any chance of ? No LMP N/A Obstetrics History GPAL:G 0 P 0 0 0 0 Immunizations Vaccine Type Date Status Note Provider Nam e and Address Organization Details Recorded Time zoster recombinant 2 completed Marjan Pacheco null, PA - [facility] 06/19/2024 13:04:20 zoster recombinant 2 completed Marjan Pacheco null, PA - [facility] 06/19/2024 13:04:20 Influenza, high-dose, quadrivalent, PF 3 completed Marjan Pacheco null, PA - [facility] 06/19/2024 13:04:20 Influenza, adjuvanted, quadrivalent, PF 2 completed Marjan Pacheco null, PA - [facility] 06/19/2024 13:04:20 COVID-19, mRNA, LNP-S, PF, 30 mcg/0.3 mL dose 1 completed Marjan Pacheco null, PA - [facility] 06/19/2024 13:04:20 COVID-19, mRNA, LNP-S, PF, 30 mcg/0.3 mL dose 1 completed Marjan Pacheco null, PA - [facility] 06/19/2024 13:04:20 COVID-19, mRNA, LNP-S, PF, 30 mcg/0.3 mL dose 1 completed Marjan Pacheco null, PA - [facility] 06/19/2024 13:04:20 COVID-19, mRNA, LNP-S, bivalent, PF, 50 mcg/0.5 mL or 25mcg/0.25 mL dose 2 completed Marjan Pacheco null, PA - [facility] 06/19/2024 13:04:20 RSV, bivalent, protein subunit RSVpreF, diluent reconstituted, 0.5 mL, PF 3 completed Marjangenesis Pacheco null, PA - [facility] 06/19/2024 13:04:20 COVID-19, mRNA, LNP-S, PF, 50 mcg/0.5 mL 3 completed Marjan Pacheco null, PA - [facility] 06/19/2024 13:04:20 pneumococcal polysaccharide PPV23 8 completed Marjan Pacheco null, PA - [facility] 06/19/2024 13:04:20 Tdap 7 completed Marjan Pacheco null, PA - [facility] 06/19/2024 13:04:20 Influenza, split virus, quadrivalent, PF 1 completed Marjan Pacheco null, PA - [facility] 06/19/2024 13:04:20 Past Encounters Encounter ID Performer Location Encounter Start Date Encounter Closed Date Diagnosis/Indication Diagnosis SNOMED-CT Code Diagnosis ICD10 Code Diagnosis Note [id number] [address] [address] 04/27/2019 10:38:17 04/27/2019 11:50:01 [id number] YAMIL AZAR [address] [address] 06/19/2024 12:15:52 06/19/2024 13:34:46 Impacted cerumen 53319566 H61.21 Based on your presentati on and exam - you have cerumen impaction. We removed the wax from your ears today. You may feel like you have some residual water in the ear for the next couple of hours. If you have this sensation use rubbing alcohol (not peroxide) in the ear. This will help reabsorb the water left in the ear. If antibiotic ear drops were prescribed to you- then use them as prescribed . Sometimes antibiotic s are not needed and the decision is based on the presentati on of the ear after the procedure. Would advise using Debrox every 2 weeks to help with ear wax build up if you are prone to this. Do not use Q-tip deep in the ear because that just pushes wax back in the ear canal. You should be seen again if you develop any of the following symptoms:1 . Severe ear pain2. Fever3. Blood discharge from the ear or Purulent discharge from the ear4. Pain with touching the ear5. Skin redness outside the ear6. Swollen lymph nodes around the ear or neck7. Stiff neck. Thank you for using [facility] today, please feel free to contact our office if you have any questions or concerns. Health Concerns Section Related Observation LastModified by Organization Detai ls LastModified Time None Recorded Concern Status LastModified by Organization Details LastModified Time None Recorded Advance Directives Directive None Recorded Payers Encounter Date Sequence Insurance Name Policy Number Policy Rodriguez Covered Member ID Rodriguez Member ID Guarantor Name 04/27/2019 1 [facility] [id number] 1 Nida E Clarice Felipe [id number] Ndia Clarice Felipe 06/19/2024 2 [facility] - PLAN 1 (MEDICARE SUPPLEMENT) [id number] 1 Nida E Clarice Felipe [id number] Nida Clarice Felipe 06/19/2024 1 [place] [employer] Nida E Felipe [id number] Nida Clarice Felipe Notes Date Note Type Note Provider Name and Address Organization Details Recorded Time 4 text/html Ear problem UCReported bypatient.source of patient informationInformation obtained from patient; Patient arrived at Urgent Care ambulatory Location:bilateral Quality:clogged Severity:severe Modifying Factors:does not hurt to lie on, or pull on earNotes:The patient is complaining of hearing loss in the right ear. The patient denies any pain. No discharge. History of chronic ear wax and has had her ear flushed in the past. YAMIL AZAR [address] [place], [address], PA - [facility] 06/19/2024 13:43:12 OBGyn Episode No OBEpisode recorded.
--- OUTSIDE RECORDS SUMMARY | 2024-12-25 18:04 | XMS_ITS | Encounter Summary ---
Author Organization [employer] Address [address] [facility] 7t [place] [address] Care Team Providers Care Unit Operator Name Role Phone Unavailable Primary Care Provider Unavailabl e Encounter Details Date Type Department Care Team (Latest Contact Info) Description 03/01/2022 Abstract [facility] CONVERSIONS Dental, Provider, DDS Social History [...]
== END 2024-12-25 17:38 | disposition home or self-care (01) ==
LOC: HO.HMCH 16:23
PROVIDERS: PCP Internal Medicine; Visit Provider Internal Medicine
DX: Z00.00 Encounter for general adult medical examination without abnormal findings (principal); I10 Essential (primary) hypertension; M81.0 Age-related osteoporosis without current pathological fracture; M19.011 Primary osteoarthritis, right shoulder; E04.2 Nontoxic multinodular goiter; E55.9 Vitamin D deficiency, unspecified; N32.81 Overactive bladder; R76.8 Other specified abnormal immunological findings in serum; F41.9 Anxiety disorder, unspecified

== ENCOUNTER → 2024-12-25 16:22 | Outpatient (BNVA) | payer MEDICARE, OTHER, SELFPAY | PROVIDERS: PCP Internal Medicine; Visit Provider Internal Medicine | DX: Z00.00 Encounter for general adult medical examination without abnormal findings (principal); I10 Essential (primary) hypertension; M81.0 Age-related osteoporosis without current pathological fracture; M19.011 Primary osteoarthritis, right shoulder; E04.2 Nontoxic multinodular goiter; E55.9 Vitamin D deficiency, unspecified; N32.81 Overactive bladder; F41.9 Anxiety disorder, unspecified; R76.8 Other specified abnormal immunological findings in serum | CPT/HCPCS: 96127; 99212 ==

== ENCOUNTER 2024-12-30 09:16 | Outpatient (REF) | payer MEDICARE, OTHER, SELFPAY ==
[2024-12-30 09:37] LABS: MANUAL DIFF FLAG NO
[2024-12-30 09:54] LABS: Basophils Percent Auto 0.5 % (0-2); Eosinophils Absolute Auto 0.1 X10*3/uL (0.0-0.4); Eosinophils Percent Auto 1.9 % (0-4); Hematocrit 41.7 % (37.0-47.0); Hemoglobin 14.2 g/dl (12.0-16.0); Imm Gran Abs Auto 0.02 X10*3/uL (0.00-0.03); Imm Gran Pct Auto 0.5 % (0.0-0.4); Lymphocytes Absolute Auto 1.5 X10*3/uL (1.2-4.9); Lymphocytes Percent Auto 40.9 % (20-40); Mean Corpuscular HGB Conc 34.1 g/dl (31.0-35.0); Mean Corpuscular Hemoglobin 32.1 pg (27.0-33.0); Mean Corpuscular Volume 94.1 fL (80.0-98.0); Mean Platelet Volume 9.6 fL (9.4-12.3); Monocytes Absolute Auto 0.3 X10*3/uL (0.1-1.2); Monocytes Percent Auto 8.2 % (2-11); Neutrophils Absolute Auto 1.8 x10*3/uL (2.0-8.3); Platelet Count 292 X10*3/uL (160-400); Red Blood Count 4.43 X10*6/uL (4.20-5.50); White Blood Count 3.7 X10*3/uL (4.8-10.8)
[2024-12-30 10:16] LABS: Appearance Urine Clear; Color Urine Yellow; Glucose Urine UA Negative (Negative); Leukocyte Esterase Urine Negative (Negative); Nitrite Urine Negative (Negative); PH 6.5 (5.0-9.0); Specific Gravity - Urine 1.025 (1.005-1.025); UMIC TRIGGER UACC YES; Urine Blood Moderate (2+) (Negative); Urine Ketones Negative (Negative); Urine Protein 30 (1+) mg/dL (Neg-Trace)
--- OUTSIDE RECORDS SUMMARY | 2024-12-30 10:20 | XMS_ITS | Data Portability ---
Author Organization [facility] rizwan [address] Address [address] [place] [phone] Assessment No assessment recorded. Plan of Treatment [...] By Organization Details Last Modified Time 06/19/2024 [id number] earwax blockage: care instructions [email or web address] Not available 06/19/2024 13:33:25 Reason for Referral None Reported. Problems Name Problem SNOMED Code Status Onset Date Resolution Date Notes Provider Name and Address Organization Details Recorded Time Hypertensive disorder 91470616 Active Marjan Pacheco liset PA - [facility] 13:06:03 Insomnia 090517226 Active Mar[facility] Pacheco liset [facility] - [facility] [...] Last Updated DateTime 157.48 cm 20.1 kg/m2 97732.1 6 g 100 % 100 % 0 66 /min 16 /min 98.5 [degF] 143 mm[Hg] 76 mm[Hg] Marjan Pacheco PA - [facility] 13:03:54 Social History Question Answer Notes LastModified by Constructizat ion Details LastModified Time Tobacco Smoking Status Never Smoker Marjan hutchins PA - [facility] 06/19/2024 13:06:49 What Is Your Level Of Alcohol Consumption? None [email or web address] Information not available 06/19/2024 Are You Currently Employed? No [email or web address] Information not available 06/19/2024 Have You Had A Flu Shot This Season? No [email or web address] Information not available 06/19/2024 If No, Would You Like A Flu Shot Today? No [email or web address] Information not available 06/19/2024 What Is Your Relationship Status? [email or web address] Information not available 06/19/2024 Do You Use Any Illicit Or Recreational Drugs? No [email or web address] Information not available 06/19/2024 Have You Recently Traveled Abroad? No [email or web address] Information not available 06/19/2024 Do You Or Have You Ever Used Any Other Forms Of Tobacco Or Nicotine? No [email or web address] Information not available 06/19/2024 Sex: Unknown Functional Status None recorded. Mental Status None recorded. Family History Relationship Description Onset Age of this Age Resolved Age Notes LastModified by Organization Details LastModified Time Father No current problems or disability [email or web address] Not available 05/27 13:06:22 Mother No current problems or disability [email or web address] Not available 05/27 13:06:22 Medical History No medical history recorded. Gynecological History Statement/Question Response Is there any chance of ? No LMP N/A Obstetrics History GPAL:G 0 P 0 0 0 0 Immunizations Vaccine Type Date Status Note Provider Nam e and Address Organization Details Recorded Time zoster recombinant 2 completed Marjan Apcheco null, PA - [facility] 06/19/2024 13:04:20 [...] SNOMED-CT Code Diagnosis ICD10 Code Diagnosis Note [id number] [address] [address] 04/27/2019 10:38:17 04/27/2019 11:50:01 [id number] YAMIL AZAR [address] [address] 06/19/2024 12:15:52 06/19/2024 13:34:46 Impacted cerumen 12042802 H61.21 Based on your presentati on and [...] Rodriguez Member ID Guarantor Name 04/27/2019 1 [facility] [id number] 1 Nida E Clarice Felipe [id number] Nida Clarice Felipe 06/19/2024 2 [facility] - PLAN 1 (MEDICARE SUPPLEMENT) [id number] 1 Nida E Clarice Felipe [id number] Nida Clarice Felipe 06/19/2024 1 MEDICARE [place]: [employer] Nida E Felipe [id number] Nida Clarice Felipe Notes Date Note Type [...] past. YAMIL AZAR [address] [place], [address], PA - [facility] 06/19/2024 13:43:12 OBGyn Episode No OBEpisode recorded.
--- OUTSIDE RECORDS SUMMARY | 2024-12-30 10:20 | XMS_ITS | Encounter Summary ---
Author Organization [employer] Address [address] [facility] 7t [place] [address] Care Team Providers Care Audio Technician Name Role Phone Unavailable Primary Care Provider Unavailabl e Encounter Details Date Type Department Care Team (Latest Contact Info) Description 03/01/2022 Abstract [facility] CONVERSIONS Dental, Provider, DDS Social History [...]
--- OUTSIDE RECORDS SUMMARY | 2024-12-30 10:20 | XMS_ITS | Encounter Summary ---
Author Organization [employer] Address [address] [facility] 7t [place] [address] Care Team Providers Care Supervisor Kosher Dietary Service Name Role Phone Unavailable Primary Care Provider Unavailabl e Encounter Details Date Type Department Care Team (Latest Contact Info) Description 10/23/2019 Abstract [facility] CONVERSIONS Dental, Provider, DDS Social History Tobacco [...]
--- OUTSIDE RECORDS SUMMARY | 2024-12-30 10:20 | XMS_ITS | Clinical Summary ---
Author Organization [employer] Address [address] [facility] 7t [place] [address] Care Team Providers Care Computer Discovery Teacher Name Role Phone Unavailable Primary Care Provider [...]
[2024-12-30 10:36] LABS: Bacteria Urine None Seen (None Seen); Calcium Oxalate Crystals Urine Present; Hyaline Casts Urine 0-2 /LPF (0-2); RBC Urine >20 /HPF (0-2); Squamous Epithelial Cell Urine 0-2 /HPF (0-2); WBC Urine 0-5 /HPF (0-5)
[2024-12-30 10:54] LABS: Alanine Aminotransferase 23 U/L (0-31); Albumin Level 4.1 g/dL (3.5-5.0); Alkaline Phosphatase 99 U/L (39-117); Anion Gap 8 (12-20); Aspartate Amino Transferase 24 U/L (5-31); Bilirubin Total 0.5 mg/dL (0.0-1.0); Blood Urea Nitrogen 16 mg/dL (9-16); Calcium 9.3 mg/dL (8.4-10.2); Carbon Dioxide 28 mmol/L (22-29); Chloride 111 mmol/L (96-108); Cholesterol 183 mg/dL (<200); Estimated Glomerular Filt Rate > 60; Glucose Fasting 95 mg/dL (60-99); HDL Cholesterol 66 mg/dL (>40); LDL Cholesterol Calculated 102 mg/dL (<100); Potassium 3.9 mmol/L (3.3-5.1); Sodium 143 mmol/L (135-145); Triglycerides 79 mg/dL (<150)
[2024-12-30 10:59] LABS: TSH reflex Free T4 1.47 uIU/mL (0.32-4.0); Vitamin D 25-OH Total 37.3 ng/mL (>30)
[2025-01-03 20:58] LABS: N-Telopeptide 45 (see note); NTXCreaRU 124 mg/dL (20-275)
== END 2024-12-30 09:17 | disposition home or self-care (01) ==
LOC: HO.LAB 09:16
PROVIDERS: PCP Internal Medicine; Visit Provider Internal Medicine
DX: Z00.00 Encounter for general adult medical examination without abnormal findings (principal); M18.0 Bilateral primary osteoarthritis of first carpometacarpal joints; E55.9 Vitamin D deficiency, unspecified; D64.9 Anemia, unspecified; E78.00 Pure hypercholesterolemia, unspecified; R30.0 Dysuria
CPT/HCPCS: 36415; 80053; 80061; 81001; 81003; 82306; 82523; 84443; 85025

== ENCOUNTER 2025-01-24 10:42 | Outpatient (REF) | payer MEDICARE, OTHER, SELFPAY ==
--- NOTE | ~2025-01-24 | MM_ITS ---
EXAMINATION: DXA BONE DENSITY AXIAL HISTORY: Z78.0 - Asymptomatic menopausal state TECHNIQUE: [employer] Dual energy absorptiometry (DEXA) of the lumbar spine, total left hip, and femoral neck was performed. COMPARISON: Comparison is made with the prior examination dated 12/09/2022. FINDINGS: The bone mineral density of the lumbar spine is 0.831 with a T-score of -2.8, and a Z-score of -0.7. This is indicative of osteoporosis. This represents a BMD change of -1.0% compared to the prior exam. This is not statistically significant. The bone mineral density of the left total hip is 0.839 with a T-score of -1.3, and a Z-score of 0.4. This is indicative of osteopenia. This represents a BMD change of -3.7% compared to the prior exam. This is not statistically significant. The bone mineral density of the left femoral neck is 0.801 with a T-score of -1.7, and a Z-score of 0.2. This is indicative of osteopenia. This represents a BMD change of -3.1% compared to the prior exam. FRACTURE RISK: The FRAX index suggests a ten year probability of major osteoporotic fracture of 5.4%, and of hip fracture 0.9%. MM/XR DEXA axial skeleton IMPRESSION: Based on bone mineral density, and according to World Health Organization (WHO) criteria, the diagnosis is consistent with osteoporosis. All bone density values are in grams per centimeter squared (g/cm2). Statistically, 68% of repeat scans fall within 1 SD (+/- 0.010 g/cm2 for AP spine L1-L4) and 1 SD (+/- 0.012 g/cm2 for femur total) FRAX is a trademark of the [employer]'s [place] for Metabolic Bone Disease, a World Health Organization (WHO) Collaborating Center. Electronically signed by: Matias Flannery MD 01/24/2025 11:49 AM EDT
--- OUTSIDE RECORDS SUMMARY | 2025-01-24 11:48 | XMS_ITS | Encounter Summary ---
Author Organization [employer] Address [address] [facility] 7t [place] [address] Care Team Providers Care Pediatric Np Name Role Phone Unavailable Primary Care Provider Unavailabl e Encounter Details Date Type Department Care Team (Latest Contact Info) Description 03/01/2022 Abstract [facility] CONVERSIONS Dental, Provider, DDS Social History Tobacco [...]
--- OUTSIDE RECORDS SUMMARY | 2025-01-24 11:48 | XMS_ITS | Encounter Summary ---
Author Organization [employer] Address [address] [facility] 7t [place] [address] Care Team Providers Care Registration Representative Name Role Phone Unavailable Primary Care Provider Unavailabl e Encounter Details Date Type Department Care Team (Latest Contact Info) Description 10/23/2019 Abstract [facility] CONVERSIONS Dental, Provider, DDS Social History Tobacco [...]
--- OUTSIDE RECORDS SUMMARY | 2025-01-24 11:48 | XMS_ITS | Data Portability ---
Author Organization [facility]zwan [facility] Address [address] [place] [phone] Assessment No assessment recorded. Plan of Treatment [...] By Organization Details Last Modified Time 06/19/2024 [id number] earwax blockage: care instructions [email or web address] Not available 06/19/2024 13:33:25 Reason for Referral None Reported. Problems Name Problem SNOMED Code Status Onset Date Resolution Date Notes Provider Name and Address Organization Details Recorded Time Hypertensive disorder 89080819 Active Marjan Pacheco liset PA - [facility] 13:06:03 Insomnia 337942067 Active Marjan Pacheco liset [facility] - [facility] [...] Last Updated DateTime 157.48 cm 20.1 kg/m2 94142.1 6 g 100 % 100 % 0 66 /min 16 /min 98.5 [degF] 143 mm[Hg] 76 mm[Hg] Marjan Pacheco PA - [facility] 13:03:54 Social History Question Answer Notes LastModified by Midfin Systemsizat ion Details LastModified Time Tobacco Smoking Status Never Smoker Marjan hutchins PA - [facility] 06/19/2024 13:06:49 What Is Your Level Of Alcohol Consumption? None [email or web address] Information not available 06/19/2024 Are You Currently Employed? No [email or web address] Information not available 06/19/2024 Have You Had A Flu Shot This Season? No [email or web address] Information not available 06/19/2024 If No, Would You Like A Flu Shot Today? No [email or web address] Information not available 06/19/2024 What Is Your Relationship Status? [email or web address] Information not available 06/19/2024 Do You Use Any Illicit Or Recreational Drugs? No [email or web address] Information not available 06/19/2024 Have You Recently Traveled Abroad? No [email or web address] Information not available 06/19/2024 Do You Or Have You Ever Used Any Other Forms Of Tobacco Or Nicotine? No [email or web address] Information not available 06/19/2024 Sex: Unknown Functional Status None recorded. Mental Status None recorded. Family History Relationship Description Onset Age of this Age Resolved Age Notes LastModified by Organization Details LastModified Time Father No current problems or disability [email or web address] Not available 05/27 13:06:22 Mother No current problems or disability [email or web address] Not available 05/27 13:06:22 Medical History No [...] diluent reconstituted, 0.5 mL, PF 3 completed Marjan Pacheco null, PA [...] SNOMED-CT Code Diagnosis ICD10 Code Diagnosis Note [id number] [address] [place] [address] _[address] [address] 04/27/2019 10:38:17 04/27/2019 11:50:01 [id number] KELLE CALLAHAN MD _[facility] [address] [address] 06/19/2024 12:15:52 06/19/2024 13:34:46 Impacted cerumen [id number] H61.21 Based on your presentati on and [...] Rodriguez Member ID Guarantor Name 04/27/2019 1 [facility] [id number] 1 Nida E Clarice Felipe [id number] Nida Clarice Felipe 06/19/2024 2 [facility] - PLAN 1 (MEDICARE SUPPLEMENT) [id number] 1 Nida E Clarice Felipe [id number] Nida Clarice Felipe 06/19/2024 1 MEDICARE B-[place]: [employer] Nida E Felipe [id number] Nida Clarice Felipe Notes Date Note Type [...] past. YAMIL AZAR [address] [place], [address], PA - [facility] 06/19/2024 13:43:12 OBGyn Episode No OBEpisode recorded.
--- OUTSIDE RECORDS SUMMARY | 2025-01-24 11:48 | XMS_ITS | Clinical Summary ---
Author Organization [employer] Address [address] [facility] 7t [place] [address] Care Team Providers Care Salesforce Trainer Name Role Phone Unavailable Primary Care Provider [...]
== END 2025-01-24 10:43 | disposition home or self-care (01) ==
LOC: HO.MAMMO 10:42
PROVIDERS: PCP Internal Medicine; Visit Provider Internal Medicine
DX: M81.0 Age-related osteoporosis without current pathological fracture (principal); Z78.0 Asymptomatic menopausal state
CPT/HCPCS: 77080

== ENCOUNTER → 2025-01-24 11:00 | Outpatient (BNV) | payer MEDICARE, OTHER, SELFPAY | PROVIDERS: PCP Internal Medicine; Visit Provider Radiology Diagnostic Radiology | DX: E28.39 Other primary ovarian failure (principal) | CPT/HCPCS: 77080 ==

== ENCOUNTER 2025-02-03 14:44 | Outpatient (REF) | payer MEDICARE, OTHER, SELFPAY ==
--- NOTE | ~2025-02-03 | US_ITS ---
EXAMINATION: US THYROID HISTORY: E04.2 - Nontoxic multinodular goiter TECHNIQUE: Real-time grayscale ultrasound imaging was performed and images were reviewed. COMPARISON: Comparison is made with the prior examination dated 12/18/2023. FINDINGS: SIZE: The right thyroid lobe measures 4.9 x 1.3 x 1.0 cm. The left thyroid lobe measures 3.9 x 1.2 x 1.3 cm. The isthmus measures 3 mm. FLOW: Flow to the gland is normal. ECHOGENICITY: The echotexture of the gland is homogeneous. NODULES: Again seen are multiple subcentimeter nodules bilaterally as described below: Nodule #: 1 Location: Interpolar region of the right thyroid lobe measuring 5 x 4 x 4 mm (previously 5 x 3 x 3 mm). Shape: Wider than tall (0 points) Margins: Smooth (0 points) Echotexture: Hypoechoic (2 points) Composition: Solid (2 points) Calcifications: Punctate calcifications (3 points) Total points: 7 TIRADS: TR5: Highly suspicious. Nodule #: 2 Location: Left upper pole measuring 4 x 2 x 3 mm (previously 5 x 3 x 4 mm). Shape: Wider than tall (0 points) Margins: Smooth (0 points) Echotexture: Hypoechoic (2 points) Composition: Mostly solid (2 points) Calcifications: None (0 points) Total points: 4 TIRADS: TR4: Moderately suspicious. Nodule #: 3 Location: Upper pole of the left thyroid lobe measuring 5 x 4 x 4 mm (not previously identified). Shape: Wider than tall (0 points) Margins: Smooth (0 points) Echotexture: Isoechoic (1 point) Composition: Solid (2 points) Calcifications: Punctate calcifications (3 points) Total points: 6 TIRADS: TR4: Moderately suspicious. Nodule #: 4 Location: Midportion of the left thyroid lobe measuring 5 x 3 x 4 mm (previously 6 x 3 x 5 mm). Shape: Wider than tall (0 points) Margins: Smooth (0 points) Echotexture: Isoechoic (1 point) Composition: Solid (2 points) Calcifications: None (0 points) Total points: 3 TIRADS: TR3: Mildly suspicious. US/US thyroid IMPRESSION: Multiple subcentimeter bilateral thyroid nodules are again noted, as described above. According to ACR TI-RADS guidelines below, follow-up is not required. ACR TI-RADS Guidelines TR1 (0 points): Benign, No follow-up or biopsy required TR2 (2 points): Not Suspicious, No biopsy or follow up indicated TR3 (3 points): Mildly Suspicious, FNA if >= 2.5 cm, Follow if >= 1.5 cm TR4 (4-6 points): Moderately Suspicious, FNA if >= 1.5 cm, Follow if >= 1.0 cm TR5 (>=7 points): Highly Suspicious, FNA if >= 1.0 cm, Follow if >= 0.5 cm Electronically signed by: Matias Flannery MD 02/04/2025 07:11 AM EDT
--- OUTSIDE RECORDS SUMMARY | 2025-02-03 14:46 | XMS_ITS | Clinical Summary ---
Author Organization [employer] Address [address] [facility] [address] [address] [place] [address] Care Team Providers Care Oil Pumper Name Role Phone Unavailable Primary Care Provider [...]
--- OUTSIDE RECORDS SUMMARY | 2025-02-03 14:46 | XMS_ITS | Encounter Summary ---
Author Organization [employer] Address [address] [facility] [address] [place] [address] Care Team Providers Care Distribution Operation Supervisor Name Role Phone Unavailable Primary Care Provider Unavailabl e Encounter Details Date Type Department Care Team (Latest Contact Info) Description 03/01/2022 Abstract [facility] CONVERSIONS Dental, Provider, DDS Social History [...]
--- OUTSIDE RECORDS SUMMARY | 2025-02-03 14:46 | XMS_ITS | Encounter Summary ---
Author Organization [employer] Address [address] [facility] [address] [place] [address] Care Team Providers Care Binman Name Role Phone Unavailable Primary Care Provider Unavailabl e Encounter Details Date Type Department Care Team (Latest Contact Info) Description 10/23/2019 Abstract [facility] CONVERSIONS Dental, Provider, DDS Social History [...]
--- OUTSIDE RECORDS SUMMARY | 2025-02-03 14:46 | XMS_ITS | Data Portability ---
Author Organization [email or web address] [id number] Address [address] [place] [id number] Assessment No assessment recorded. Plan of Treatment [...] By Organization Details Last Modified Time 06/19/2024 [id number] earwax blockage: care instructions Not available 06/19/2024 13:33:25 Reason for Referral None Reported. Problems Name Problem SNOMED Code Status Onset Date Resolution Date Notes Provider Name and Address Organization Details Recorded Time Hypertensive disorder 38276036 Active Marjan Pacheco liset PA - [facility] 13:06:03 Insomnia 565925542 Active Marjan [facility]co [facility]iset [facility] - [facility] [...] Last Updated DateTime 157.48 cm 20.1 kg/m2 06297.1 6 g 100 % 100 % 0 66 /min 16 /min 98.5 [degF] 143 mm[Hg] 76 mm[Hg] Marjan Junior [facility] 13:03:54 Social History Question Answer Notes LastModified by 6APT Details LastModified Time Tobacco Smoking Status Never Smoker Marjan Junior hutchins PA - [facility] 06/19/2024 13:06:49 Have You Had A Flu Shot This Season? No [email or web address] Information not available 06/19/2024 If No, Would You Like A Flu Shot Today? No [email or web address] Information not available 06/19/2024 What Is Your Relationship Status? [email or web address] Information not available 06/19/2024 Have You Recently Traveled Abroad? No [email or web address] Information not available 06/19/2024 Sex: Unknown Functional Status Question Answer Note LastModified by 6APT Details LastModified Time Do you use any illicit or recreational drugs? No [email or web address] Information not available 06/19/2024 Do you or have you ever used any other forms of tobacco or nicotine? No Information not available 06/19/2024 What is your level of alcohol consumption? None [email or web address] Information not available 06/19/2024 Are you currently employed? No [email or web address] Information not available 06/19/2024 Mental Status None recorded. Family History Relationship Description Onset Age of this Age Resolved Age Notes LastModified by Organization Details LastModified Time Father No current problems or disability [email or web address] Not available 05/27 13:06:22 Mother No current problems or disability [email or web address] Not available 05/27 13:06:22 Medical History No [...] SNOMED-CT Code Diagnosis ICD10 Code Diagnosis Note [id number] [facility] _[address] [id number] 04/27/2019 10:38:17 04/27/2019 11:50:01 [id number] KELLE CALLAHAN MD _[address] [phone] 06/19/2024 12:15:52 06/19/2024 13:34:46 Impacted cerumen [id number] H61.21 Based on your presentati on and [...] Recorded Advance Directives Directive None Recorded Payers Insurance Date Sequence Insurance Name Policy Number Policy Rodriguez Covered Member ID Rodriguez Member ID Guarantor Name 06/19/2024 2 [facility] - PLAN 1 (MEDICARE SUPPLEMENT) [id number] 1 Nida E Clarice Felipe [id number] Nida Clarice Felipe 06/19/2024 1 [place]IC[place]: [employer] Nida E Felipe [id number] Nida Clarice Felipe 06/19/2024 1 [facility] [employer] [id number] Nida E Clarice Felipe [id number] Nida Clarice Felipe Notes Date Note Type [...] ear flushed in the past. [place], [address], PA - [facility] 06/19/2024 13:43:12 OBGyn Episode No OBEpisode recorded.
== END 2025-02-03 14:45 | disposition home or self-care (01) ==
LOC: HO.US 14:44
PROVIDERS: PCP Internal Medicine; Visit Provider Internal Medicine
DX: E04.2 Nontoxic multinodular goiter (principal)
CPT/HCPCS: 76536

== ENCOUNTER → 2025-02-03 14:46 | Outpatient (BNV) | payer MEDICARE, OTHER, SELFPAY | PROVIDERS: PCP Internal Medicine; Visit Provider Radiology Diagnostic Radiology | DX: E04.2 Nontoxic multinodular goiter (principal) | CPT/HCPCS: 76536 ==

== ENCOUNTER 2025-02-14 08:52 | Outpatient (AMB) | payer MEDICARE, OTHER, SELFPAY ==
[2025-02-14 09:13] VITALS: BP 142/82; PULSE 72; O2SAT 97; BMI 21.0
--- NOTE | 2025-02-14 09:13 | A.OFFVIS_ITS ---
Vital Signs 02/14/25 09:13 Height 5 ft 2 in Weight 114 lb 10.246 oz BMI 21.0 BP 142/82 H Blood Pressure Location Lt brachial Position Sitting Pulse 72 Pulse Source Pulse Oximeter Pulse Oximetry (%) 97 Oxygen Delivery Method Room Air Intake Visit Reasons: Nontoxic multinodular goiter, Age-related osteo Intake Note: Patient present today for Nontoxic multinodular goiter, Age-related osteo. 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 She was previously seen by Dr. Joshi and then last saw Dr. Medel February 2022. Here today with Parrish. Nontoxic multinodular goiter Thyroid ultrasound done in 2020 showed bilateral subcentimeter nodules, there was a right mid 0.5 cm solid isoechoic nodule with punctate echogenic foci, TR 4 category and a left superior 0.5 cm solid hypoechoic nodule with punctate echogenic foci, labeled as TR 5 category. Most recent thyroid ultrasound 02/03/2025 shows stable size of the nodules of bilateral subcentimeter nodules. I reviewed the images myself and even though some of these are labeled to have calcifications, looks more like colloid to me. At this point given stable size of the nodules over the past 4 years, no further need for a follow up. Normal TSH from December 2024. Patient currently denies heat or cold intolerance, diarrhea or constipation, hair loss, palpitation, anxiety, weight changes, mood changes, low energy, changes in appearance of eyes or vision changes, tremors, increased diaphoresis or dry skin. ? Patient denies any difficulty swallowing, pain on swallowing or voice changes or difficulty breathing. Patient denies any history of childhood neck radiation. Denies having ever used lithium, amiodarone or biotin supplements. Patient denies any family history of thyroid cancer or thyroid disease. 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 No drug holiday. vitamin D once a day , doesnt know the dose calcium supplements : none Milk : soy milk and not very often Cheese : barely Yogurt : 3-4 servings a week exercise: 2 hrs daily, walks, wit high inclination and does weight sister : osteoporosis Secondary workup done in January 2021 was unremarkable with normal calcium, vitamin- D, kidney function, serum protein electrophoresis, PTH, she did have an elevated 24 hour urine calcium level of 272 when her 24 hour urine creatinine was low, concern could have even been higher if creatinine was normal, however these labs were repeated in April 2021 and then she had a normal 24 hour urine calcium level. Abd US 2020 has kidney stones non obstructive in the left kidney , but no episodes of passing stones Labs done recently in December 2024 showed normal kidney function, normal calcium, albumin, good vitamin-D levels, her NTX is elevated at 45. Bone density scan done 01/24/2025 showed osteoporosis of the lumbar spine with T- score of-2.8 with stable bone density at the spine compared to prior exam in November 2022 with a decrease of 1%, osteopenia at the left total hip with T-score of-1.3, with a decrease of 3.7% compared to previous bone density and osteopenia of the left femoral neck with T-score of -1.7 with a decrease of 3.1% compared to previous exam. FRAX score for major osteoporotic fracture 5.4%, hip fracture 0.9%. Physical exam General: sitting comfortably in no acute distress HEENT: normocephalic/atraumatic Neck: supple, symmetrical, no thyromegaly , no dorsocervical or supraclavicular fat pads Cardiac: normal heart sounds Pulm: normal breath sounds B/L, no added breath sounds Abd: not distended, no tenderness Extremities: no edema, no signs of myxedema Laboratory Tests 02/12/21 02/15/21 02/23/21 10:30 10:12 09:00 Creatinine Estimated GFR Calcium 9.2 Ionized Calcium 5.0 Phosphorus 3.9 Total Protein 6.7 Total Protein (PEP) 6.6 Albumin 4.0 Albumin (PEP) 3.9 Yyvat-1-Yxbweeted 0.2 Auibu-6-Imzvfwlkr 0.6 Ioxn-0-Klcwkxbi 0.4 Bqac-8-Mhasesnz 0.3 N-Telopeptide X-linked 51 25-OH Vitamin D Total TSH PTH Intact 50 Calcium (PTH Intact) 9.0 Ur 24 Hour Volume 1325 Ur Creatinine mg/dL 55.75 Ur Creatinine 24 Hour 0.7 L Ur Calcium 24 Hr 272 H Calcium/Creat 24 Hr 366 H 05/08/21 07/22/21 11/24/21 08:00 14:51 09:39 Creatinine 0.70 Estimated GFR > 60 Calcium 9.2 Ionized Calcium Phosphorus Total Protein Total Protein (PEP) Albumin 4.0 Albumin (PEP) Lwwan-1-Vjzfhhzhn Tlayi-3-Xplcfpwnt Mzmu-8-Aczdbzgx Ebje-4-Peoqnkdw N-Telopeptide X-linked 25-OH Vitamin D Total 49.2 TSH PTH Intact 45 Calcium (PTH Intact) 9.6 Ur 24 Hour Volume 2050 Ur Creatinine mg/dL 49.55 Ur Creatinine 24 Hour 1.0 Ur Calcium 24 Hr 232 Calcium/Creat 24 Hr 222 12/30/24 09:30 Creatinine 0.69 Estimated GFR > 60 Calcium 9.3 Ionized Calcium Phosphorus Total Protein Total Protein (PEP) Albumin 4.1 Albumin (PEP) Bkpub-7-Dmsgbvbzx Sxtas-6-Lizwiokfh Frkx-4-Qtbovpmu Qsbe-3-Achsneak N-Telopeptide X-linked 45 25-OH Vitamin D Total 37.3 TSH 1.47 PTH Intact Calcium (PTH Intact) Ur 24 Hour Volume Ur Creatinine mg/dL Ur Creatinine 24 Hour Ur Calcium 24 Hr Calcium/Creat 24 Hr EXAMINATION: US THYROID 02/03/25 HISTORY: E04.2 - Nontoxic multinodular goiter TECHNIQUE: Real-time grayscale ultrasound imaging was performed and images were reviewed. COMPARISON: Comparison is made with the prior examination dated 12/18/2023. FINDINGS: SIZE: The right thyroid lobe measures 4.9 x 1.3 x 1.0 cm. The left thyroid lobe measures 3.9 x 1.2 x 1.3 cm. The isthmus measures 3 mm. FLOW: Flow to the gland is normal. ECHOGENICITY: The echotexture of the gland is homogeneous. NODULES: Again seen are multiple subcentimeter nodules bilaterally as described below: Nodule #: 1 Location: Interpolar region of the right thyroid lobe measuring 5 x 4 x 4 mm (previously 5 x 3 x 3 mm). Shape: Wider than tall (0 points) Margins: Smooth (0 points) Echotexture: Hypoechoic (2 points) Composition: Solid (2 points) Calcifications: Punctate calcifications (3 points) Total points: 7 TIRADS: TR5: Highly suspicious. Nodule #: 2 Location: Left upper pole measuring 4 x 2 x 3 mm (previously 5 x 3 x 4 mm). Shape: Wider than tall (0 points) Margins: Smooth (0 points) Echotexture: Hypoechoic (2 points) Composition: Mostly solid (2 points) Calcifications: None (0 points) Total points: 4 TIRADS: TR4: Moderately suspicious. Nodule #: 3 Location: Upper pole of the left thyroid lobe measuring 5 x 4 x 4 mm (not previously identified). Shape: Wider than tall (0 points) Margins: Smooth (0 points) Echotexture: Isoechoic (1 point) Composition: Solid (2 points) Calcifications: Punctate calcifications (3 points) Total points: 6 TIRADS: TR4: Moderately suspicious. Nodule #: 4 Location: Midportion of the left thyroid lobe measuring 5 x 3 x 4 mm (previously 6 x 3 x 5 mm). Shape: Wider than tall (0 points) Margins: Smooth (0 points) Echotexture: Isoechoic (1 point) Composition: Solid (2 points) Calcifications: None (0 points) Total points: 3 TIRADS: TR3: Mildly suspicious. US/US thyroid IMPRESSION: Multiple subcentimeter bilateral thyroid nodules are again noted, as described above. According to ACR TI-RADS guidelines below, follow-up is not required. US THYROID 02/17/21 CLINICAL INFORMATION: Vitamin D deficiency. COMPARISON: Ultrasound thyroid soft tissues neck 07/22/2011. TECHNIQUE: Linear transducer gonzalez-scale and color Doppler examination with attention to the region of the thyroid. FINDINGS: SIZE: Measurements of the thyroid lobes and nodules are given in sagittal, anteroposterior and transverse dimensions respectively. Right Thyroid Lobe: 5.2 x 1.6 x 1.2 cm, volume 5.2 mL. Previously 1.9 x 1.3 x 1.0 cm, volume 3.3 mL. Parenchyma: The gland echotexture is homogeneous. Thyroid vascularity is normal. Left Thyroid Lobe: 4.7 x 1.5 x 1.3 cm, volume 4.8 mL. Previously 3.8 x 1.2 x 1.2 cm, volume 2.9 mL. Parenchyma: The gland echotexture is homogeneous. Thyroid vascularity is normal. Isthmus: 0.3 cm in maximum AP dimension. Previously 0.3 cm. Estimated total number of nodules greater than or equal to 1 cm: 0. [employer] nodules are described as follows: 1. Location: Right mid. Size: 0.5 x 0.3 x 0.3 cm, volume 0.02 mL. Nodule characteristics: Composition: Solid (2). Echogenicity: Isoechoic (1). Shape: Not taller than wide (0). Margins: Ill-defined (0). Echogenic Foci: Punctate echogenic foci (3). ACR TI-RADS total points: 6 ACR TI-RADS category: 4 Significant change in size (>/= 20% in 2 dimensions and minimal increase of 2 mm or 50% or greater increase in volume): No Change in features: No Change in ACR TI-RADS risk category: Not applicable 2. Location: Left upper. Size: 0.5 x 0.3 x 0.3 cm, volume 0.02 mL. Nodule characteristics: Composition: Solid (2). Echogenicity: Isoechoic (1). Shape: Not taller than wide (0). Margins: Ill-defined (0). Echogenic Foci: None (0). ACR TI-RADS total points: 3 ACR TI-RADS category: 3 Significant change in size (>/= 20% in 2 dimensions and minimal increase of 2 mm or 50% or greater increase in volume): None Change in features: None Change in ACR TI-RADS risk category: Not applicable 3. Location: Left upper. Size: 0.4 x 0.5 x 0.5 cm, volume 0.05 mL. Nodule characteristics: Composition: Solid (2). Echogenicity: Hypoechoic (2). Shape: Not taller than wide (0). Margins: Ill-defined (0). Echogenic Foci: Punctate echogenic foci (3). ACR TI-RADS total points: 7 ACR TI-RADS category: 5 Significant change in size (>/= 20% in 2 dimensions and minimal increase of 2 mm or 50% or greater increase in volume): None Change in features: None Change in ACR TI-RADS risk category: Not applicable 4. Location: Left mid. Size: 0.5 x 0.4 x 0.4 cm, volume 0.04 mL. Nodule characteristics: Composition: Solid (2). Echogenicity: Isoechoic (1). Shape: Not taller than wide (0). Margins: Ill-defined (0). Echogenic Foci: None (0). ACR TI-RADS total points: 3 ACR TI-RADS category: 3 Significant change in size (>/= 20% in 2 dimensions and minimal increase of 2 mm or 50% or greater increase in volume): None Change in features: None Change in ACR TI-RADS risk category: Not applicable NODES: No lymphadenopathy is seen in the tissue surrounding the thyroid gland. US/US thyroid IMPRESSION: Small subcentimeter nodules in both lobes. The left upper pole nodule is suspicious. Recommend routine annual follow-up. EXAMINATION: DXA BONE DENSITY AXIAL 01/24/25 HISTORY: Z78.0 - Asymptomatic menopausal state TECHNIQUE: [facility] Dual energy absorptiometry (DEXA) of the lumbar spine, total left hip, and femoral neck was performed. COMPARISON: Comparison is made with the prior examination dated 12/09/2022. FINDINGS: The bone mineral density of the lumbar spine is 0.831 with a T-score of -2.8, and a Z-score of -0.7. This is indicative of osteoporosis. This represents a BMD change of -1.0% compared to the prior exam. This is not statistically significant. The bone mineral density of the left total hip is 0.839 with a T-score of -1.3, and a Z-score of 0.4. This is indicative of osteopenia. This represents a BMD change of -3.7% compared to the prior exam. This is not statistically significant. The bone mineral density of the left femoral neck is 0.801 with a T-score of -1.7, and a Z-score of 0.2. This is indicative of osteopenia. This represents a BMD change of -3.1% compared to the prior exam. FRACTURE RISK: The FRAX index suggests a ten year probability of major osteoporotic fracture of 5.4%, and of hip fracture 0.9%. MM/XR DEXA axial skeleton IMPRESSION: Based on bone mineral density, and according to World Health Organization (WHO) criteria, the diagnosis is consistent with osteoporosis. [facility] Medical History (Updated 02/14/25 @ 09:49 by Brit Leyva MD) Multinodular goiter (nontoxic) Hypercalciuria Overactive bladder Osteoarthritis of both knees Osteoarthritis of left knee Anxiety Insomnia Benign essential hypertension Multinodular thyroid Vitamin D deficiency Osteoporosis Surgical History Hx of colonoscopy (~02/15/18) History of bunionectomy History of bilateral breast implants Family History Father Stroke Mother Hypertension Aneurysm Sister Breast cancer Brother No problems noted. Social History Housing: House Alcohol intake: current Alcohol intake frequency: holidays/special occasions only Alcohol type: wine Patient Tobacco Use Status: Former Tobacco user Years Smoked: 10 e-Cigarette/Vaping Use: Never Used Second Hand Smoke Exposure: Yes service: No Current occupational status: retired Cognitive needs: No Hearing needs: No Vision needs: Yes (glasses) Physical Exam Vital Signs: Last Vital Signs Pulse 72 02/14/25 09:13 BP 142/82 H 02/14/25 09:13 Pulse Ox 97 02/14/25 09:13 Oxygen Delivery Method Room Air 02/14/25 09:13 BMI result Body Mass Index 21.0 Assessment & Plan Assessment & Plan (1) Osteoporosis: Code(s): M81.0 - Age-related osteoporosis without current pathological fracture Category: Medical Qualifiers: Osteoporosis type: unspecified Presence of current pathological fracture: without current pathological fracture Qualified Code(s): M81.0 - Age- related osteoporosis without current pathological fracture Plan: 69-year-old female coming in today for follow up of osteoporosis. Diagnosed in 2011 with borderline osteoporosis of the spine, has never been on any pharmacologic therapy. Her risk factors for osteoporosis are age, being postmenopausal, petite physique, history of smoking, family history of osteoporosis. Most recent bone density scan done in 01/24/2025 showed osteoporosis of the lumbar spine with T-score of-2.8 with stable bone density at the spine compared to prior exam in November 2022 with a decrease of 1%, osteopenia at the left total hip with T-score of-1.3, with a decrease of 3.7% compared to previous bone density and osteopenia of the left femoral neck with T-score of - 1.7 with a decrease of 3.1% compared to previous exam. FRAX score for major osteoporotic fracture 5.4%, hip fracture 0.9%. Secondary workup done in January 2021 was unremarkable with normal calcium, vitamin- D, kidney function, serum protein electrophoresis, PTH, she did have an elevated 24 hour urine calcium level of 272 when her 24 hour urine creatinine was low, concern could have even been higher if creatinine was normal, however these labs were repeated in April 2021 and then she had a normal 24 hour urine calcium level. Abd US 2020 has kidney stones non obstructive in the left kidney , but no episodes of passing stones Labs done recently in December 2024 showed normal kidney function, normal calcium, albumin, good vitamin-D levels, her NTX is elevated at 45. It is reassuring to see that her bone density remained stable over these past 4 years. She has not had any fractures. She is taking good amount of vitamin-D as her vitamin-D is normal. She could improve her nutritional intake of calcium and I advised her about that. She has a good exercise regimen. In addition to conservative measures I think she would be a good candidate for antiresorptive therapy as well, given only borderline osteoporosis, I would start with oral bisphosphonates. She does not have any history of acid reflux. It is though notable that she had an elevated 24 hour urine calcium level back in 2020 with history of kidney stones in the past, I would be interested to ch bryan a 24 hour urine calcium level now hence he if she has any idiopathic hypercalciuria. That can contribute to worsening bone density. Though again her bone density remained stable which is reassuring. We will also check a CTX and a bone specific alkaline phosphatase level, though her NTX has been elevated at 45. We discussed the option of Fosamax, this has been discussed with her previously as well, she would like to give it some further thought. Plan: -Continue vitamin D daily, make sure its at least 1000 units daily -Continue active exercise regimen -Incorporate more calcium rich foods in diet 2 servings at least daily -Consider medication fosamax 70 mg weekly tablet , let us know if you are interested -do 24 hr urine collection and same day as you hand in the urine do fasting blood work , ordered 24 hour urine calcium, creatinine, serum calcium, albumin, creatinine, CTX and BS AP levels -follow up in 5 weeks to discuss results (2) Hypercalciuria: Code(s): R82.994 - Hypercalciuria Category: Medical Plan: See above (3) Multinodular goiter (nontoxic): Code(s): E04.2 - Nontoxic multinodular goiter Category: Medical Plan: 69-year-old female with no family history of thyroid cancer, with no personal history of head or neck radiation coming in today for follow up of nontoxic multinodular goiter. Thyroid ultrasound done in 2020 showed bilateral subcentimeter nodules, there was a right mid 0.5 cm solid isoechoic nodule with punctate echogenic foci, TR 4 category and a left superior 0.5 cm solid hypoechoic nodule with punctate echogenic foci, labeled as TR 5 category. Most recent thyroid ultrasound 02/03/2025 shows stable size of the nodules of bilateral subcentimeter nodules. I reviewed the images myself and even though some of these are labeled to have calcifications, looks more like colloid to me. At this point given stable size of the nodules over the past 4 years, no further need for a follow up. She does not have any compressive symptoms. Most recent thyroid labs normal from December 2024. No need for further follow up on the nodules. Plan I spent 30 minutes in reviewing the record, seeing the patient and documenting in the medical record. Orders: Orders Creatinine, 24 Hr Group Today M81.0 - Age-related osteoporosis without current pathological fracture, R82.994 - Hypercalciuria Creatinine Today M81.0 - Age-related osteoporosis without current pathological fracture, R82.994 - Hypercalciuria Alkaline Phosphatase Bone Today M81.0 - Age-related osteoporosis without current pathological fracture, R82.994 - Hypercalciuria Calcium, 24 Hr Ur Today M81.0 - Age-related osteoporosis without current pathological fracture, R82.994 - Hypercalciuria Calcium Today M81.0 - Age-related osteoporosis without current pathological fracture, R82.994 - Hypercalciuria Albumin Level Today M81.0 - Age-related osteoporosis without current pathological fracture, R82.994 - Hypercalciuria Collagen Type I C-Telopeptide Today M81.0 - Age-related osteoporosis without current pathological fracture, R82.994 - Hypercalciuria Patient Instructions: Continue vitamin D daily, make sure its at least 1000 units daily Continue active exercise regimen Incorporate more calcium rich foods in diet 2 servings at least daily Consider medication fosamax 70 mg weekly tablet , let us know if you are interested do 24 hr urine collection and same day as you hand in the urine do fasting blood work 24 hr urine collection instructions You have been asked to collect your urine for 24 hours to assess for calcium excretion. You must choose a 24 hour period of time when you will be home. The morning of the first day, DISCARD the FIRST morning void and then note the time. You will collect every single void from then on for 24 hours. For example, if you wake up at 6am and urinate, flush down that void. You will then collect every drop of urine all day and all night through 6am the following day. You will urinate one last time at 6am for the collection. The jug of urine must be kept in the refrigerator until you bring it to the lab. Coding Level of Care Code Est Pt Level 4 (55849) Diagnoses Osteoporosis without current pathological fracture, unspecified osteoporosis type M81.0 Osteoporosis type: unspecified Presence of current pathological fracture: without current pathological fracture Hypercalciuria R82.994 Multinodular goiter (nontoxic) E04.2 Time Spent (min) 30
--- OUTSIDE RECORDS SUMMARY | 2025-02-14 09:13 | XMS_ITS | Encounter Summary ---
Author Organization [employer] Address [address] [place] [address] Care Team Providers Care Rheostat Assembler Name Role Phone Unavailable Primary Care Provider Unavailabl e Encounter Details Date Type Department Care Team (Latest Contact Info) Description 03/01/2022 Abstract [facility] CONVERSIONS Dental, Provider, DDS Social History [...]
== END 2025-02-14 09:49 | disposition home or self-care (01) ==
LOC: HO.ENCR 08:53
PROVIDERS: PCP Internal Medicine; Visit Provider Student in an Organized Health Care Education/Training Program
DX: M81.0 Age-related osteoporosis without current pathological fracture (principal); R82.994 Hypercalciuria; E04.2 Nontoxic multinodular goiter
CPT/HCPCS: 99214

== ENCOUNTER → 2025-02-14 08:52 | Outpatient (BNVA) | payer MEDICARE, OTHER, SELFPAY | PROVIDERS: PCP Internal Medicine; Visit Provider Student in an Organized Health Care Education/Training Program | DX: M81.0 Age-related osteoporosis without current pathological fracture (principal); E04.2 Nontoxic multinodular goiter; R82.994 Hypercalciuria | CPT/HCPCS: 99212 ==